=== PATIENT | male | born 1935 | race Caucasian/White ===

== ENCOUNTER → 2019-08-20 11:33 | Outpatient (BNVA) | payer MEDICARE, OTHER, SELFPAY | PROVIDERS: Family Provider Family Medicine; PCP Family Medicine; Visit Provider Urology | DX: C67.9 Malignant neoplasm of bladder, unspecified (principal); R33.8 Other retention of urine; N39.0 Urinary tract infection, site not specified; C67.1 Malignant neoplasm of dome of bladder; R35.1 Nocturia | CPT/HCPCS: 80053; 81001 ==

== ENCOUNTER → 2020-07-21 10:16 | Outpatient (BNVA) | payer MEDICARE, OTHER, SELFPAY | PROVIDERS: Family Provider Family Medicine; PCP Family Medicine; Visit Provider Urology | DX: C67.1 Malignant neoplasm of dome of bladder (principal); N39.0 Urinary tract infection, site not specified; R33.9 Retention of urine, unspecified; R35.1 Nocturia | CPT/HCPCS: 81003 ==

== ENCOUNTER 2020-07-29 13:47 | Outpatient (CLI) | payer MEDICARE, OTHER, SELFPAY ==
--- NOTE | 2020-07-29 13:52 | USCV_ITS ---
Ricardo Nelson Age: 85 Gender: M : 1935 Exam Date: 07/29/2020 14:01 Ordering Phys: Charli Piña MD Technologist: Casie Rosenbaum [place] [facility] [place]: CHF BP: 142 / 67 HR: 58 Rhythm: Sinus Technical Quality: Technically difficult study MEASUREMENTS (Male / Female) Normal Values 2D ECHO LV Diastolic Diameter PLAX 4.7 cm 4.2 - 5.9 / 3.9 - 5.3 cm LV Systolic Diameter PLAX 2.9 cm IVS Diastolic Thickness 1.7 cm 0.6 - 1.0 / 0.6 - 0.9 cm IVS Systolic Thickness 2.4 cm LVPW Diastolic Thickness 1.7 cm 0.6 - 1.0 / 0.6 - 0.9 cm LVPW Systolic Thickness 2.0 cm LVOT Diameter 2.0 cm LV Ejection Fraction 2D Teich 68.1 % LV Ejection Fraction MOD 2C 57.9 % LV Ejection Fraction 2C AL 64.1 % LA Diameter 3.8 cm LA Width 4.9 cm LA Height 6.8 cm RA Width 3.6 cm RA Height 5.9 cm Aorta at Sinotubular Diameter 2.9 cm DOPPLER AV Peak Velocity 528.0 cm/s LVOT Peak Velocity 120.0 cm/s AV Area Cont Eq vti 0.8 cm squared AV Area Cont Eq pk 0.7 cm squared MV Area PHT 4.2 cm squared Mitral E to A Ratio 0.8 MV E' Velocity 52.5 cm/s Mitral E to MV E' Ratio 21.2 Mitral E to LV E' Lateral Ratio 16.3 Mitral E to LV E' Septal Ratio 30.1 TR Peak Velocity 157.0 cm/s TR Peak Gradient 9.9 mmHg TV Peak E Velocity 71.0 cm/s Right Atrial Pressure 3.0 mmHg Pulmonary Artery Systolic Pressu 12.9 mmHg FINDINGS Left Ventricle Normal left ventricular size and systolic function, EF 66 %. Moderate left ventricular hypertrophy. Moderate hypokinesis of the basal inferior wall segment.Grade I/IV diastolic dysfunction (abnormal relaxation filling pattern), normal to mildly elevated filling pressures. Right Ventricle The right ventricle is normal in size and function. Right Atrium The right atrium is normal in size. Left Atrium Mildly increased left atrial size. Mitral Valve Thickened mitral valve. Trace mitral valve regurgitation. Aortic Valve Mild aortic valve regurgitation. Severe aortic valve stenosis, QUINTIN 0.77 cm squared. Peak velocity of 5.12 m/s with a peak gradient of 105 mmHg with a mean gradient of 56 mmHg Tricuspid Valve No gross abnormalities noted Pulmonic Valve Pulmonic valve not well visualized. Pericardium Normal pericardium without effusion. Aorta Normal ascending aorta dimension. CONCLUSIONS Normal left ventricular size and systolic function, EF 66 %. Moderate left ventricular hypertrophy. Wall motion normality as mentioned above Severe aortic valve stenosis, QUINTIN 0.77 cm squared. ( Peak velocity of 5.12 m/s with a peak gradient of 105 mmHg with a mean gradient of 56 mmHg. ) Type I diastolic dysfunction. Thickened mitral valve. Trace mitral valve regurgitation. Mildly increased left atrial size. There is no pericardial effusion. There are no intracardiac masses. No previous study is available for comparison. Compared to the study from 08/17/2018, the severe aortic valve stenosis appears to be new Dr Omari Marquis MD FAC (Electronically Signed) Final Date: 29 Jul 2020 17:54 S
== END 2020-07-29 13:48 | disposition home or self-care (01) ==
LOC: US 13:48
PROVIDERS: PCP Family Medicine; Visit Provider Family Medicine
DX: I50.9 Heart failure, unspecified (principal); I34.0 Nonrheumatic mitral (valve) insufficiency
CPT/HCPCS: 93306

== ENCOUNTER → 2020-09-08 08:48 | Outpatient (BNVA) | payer MEDICARE, OTHER, SELFPAY | PROVIDERS: PCP Family Medicine; Visit Provider Internal Medicine Cardiovascular Disease | DX: Z01.812 Encounter for preprocedural laboratory examination (principal); Z20.822 Contact with and (suspected) exposure to COVID-19 | CPT/HCPCS: 87635 ==

== ENCOUNTER 2020-09-10 10:50 | Outpatient (CLI) | payer MEDICARE, OTHER, SELFPAY ==
[2020-09-08 14:20] VITALS: BMI 30.4
--- NOTE | 2020-09-10 11:33 | ANES.PREANE2 ---
Pre-Anesthetic Assessment Pre-Anesthetic Assessment: Height/Weight: Height 1.73 m Weight 90.718 kg Proposed Procedure: Operation Date: 09/10/20 12:00 Proposed Procedures p WILFREDO(Not Applicable) - Omari Marquis MD Operation Date: 09/23/20 12:00 Proposed Procedures p WILFREDO(Not Applicable) - Omari Marquis MD Was Beta Ceasar taken within 24 hours: N/A Was Clonidine taken within 24 hours: N/A Social: Social History: No alcohol and No tobacco Exam: Pre-Anes Outpt Exam: alert, oriented x 3, clear to auscultation bilaterally and regular rate & rhythm Airway: Submandibular: WNL Cervical ROM: WNL MP: 2 Dentition: Full CV/HEM: CV/HEM: CHF, HTN and Murmur Comments: Severe , goiter excision (chest scar) Metabolic: Metabolic: Thyroid Anesthetic Plan: ASA status: 3 Anesthesia: MAC Risk of > 500 ml blood loss (7ml/kg in children): No PFSH Anesthesia PFSH: Medical History Bladder cancer Goiter Gouty arthritis History of bradycardia History of paroxysmal supraventricular tachycardia Hx of carpal tunnel syndrome Incomplete bladder emptying Mitral valve prolapse Recurrent UTI Surgical History History of total right hip arthroplasty S/P TURP (status post transurethral resection of prostate) Family History Father , at age 69 Suicide Mother , at age 89 CAD (coronary artery disease) Diabetes Sister Diabetes Lung disease Brother Diabetes Stroke Denies family history of Clotting disorder Dementia Chronic kidney disease (CKD) Anesthesia complication Bleeding disorder Cancer Social History Smoking and tobacco status: former smoker Alcohol intake: never Marital status: Current occupational status: retired History of recent travel: No Data Anesthesia Cardiac Studies: No Data to Display
[2020-09-10 11:52] VITALS: BP 175/67; PULSE 62; RESP 18; TEMP 36.8; O2SAT 96
[2020-09-10] MEDS: sodium chloride 0.9% 1,000 ML 30 ML IV (11:57)
--- NOTE | 2020-09-10 12:10 | USCV_ITS ---
Ricardo Nelson Age: 85 Gender: M : 1935 Exam Date: 09/10/2020 12:12 Ordering Phys: Omari Marquis MD ([email or web address]) Technologist: Audra Temple Exam Location: [facility] – [place] Indication: BP: 175 / 67 HR: 53 Rhythm: Sinus Technical Quality: MEASUREMENTS (Male / Female) Normal Values 2D ECHO LVOT Diameter 1.8 cm DOPPLER AV Peak Velocity 368.0 cm/s LVOT Peak Velocity 84.0 cm/s AV Area Cont Eq vti 0.7 cm squared AV Area Cont Eq pk 0.6 cm squared Medications Patient was given IV propofol by anesthesia service Complications None Proc. Components The WILFREDO probe was passed into the posterior pharynx , mid- esophagus, distal esophagus, and gastric fundus. The patient tolerated the procedure well and there were no complications. FINDINGS Left Ventricle Appears to be of normal size ejection fraction. Mild to moderate concentric left ventricular hypertrophy. Right Ventricle No intracavitary masses. Right Atrium The right atrium is normal in size. Left Atrium Appears to be mildly dilated LA Appendage Normal contractility with no evidence of any thrombus . IA Septum The interatrial septum appears to be intact with no evidence of any ASD or PFO, by color flow Doppler examination or by saline contrast injection Mitral Valve Minimal thickened mitral valve. Aortic Valve Moderate to heavy calcification in the aortic leaflets mostly at the margins. The valve appears to be tricuspid.mild aortic valve regurgitation. Echo Doppler signal across the aortic valve was not obtained by transesophageal echo, because of the difficult angle. The valve area was calculated to be 0.77 cm squared by transthoracic echo with a peak velocity of 5.12 m/s, peak gradient of 105 mmHg and a mean gradient of 56 mmHg Tricuspid Valve No significant stenotic or regurgitant lesions. Pulmonic Valve Appears to be minimally thickened . Pericardium Normal pericardium without effusion. Aorta Mild diffuse plaques in the arch and descending aorta CONCLUSIONS 1. Moderate to heavy diffuse calcification of the aortic valve margins. Valve appears to be tricuspid 2. Severe aortic valve stenosis with a valve area of . 77 cm squared and a mean gradient of 56 mmHg-based on transthoracic echo. 3. Normal LV size ejection fraction. Concentric left hypertrophy. 4. Mild aortic and mitral regurgitation. 5. Intact interatrial septum with no evidence of any atrial septal defect or patent foramen ovale. 6. No intracavitary masses 7. Normal left atrial appendage contractility No similar previous studies are available for comparison Dr Omari Marquis MD [facility] (Electronically Signed) Final Date: 11 September 2020 10:25 S
--- NOTE | 2020-09-10 12:20 | W.PM.OPSUD ---
Surgery/Procedure H&P Update DATE OF PROCEDURE: September 10, 2020 DATE H&P PERFORMED: 08/13/20 H&P UPDATE INFORMATION: I have reviewed H&P completed within last 30 days, I have examined patient prior to procedure and No changes to prior documentation PREOP DIAGNOSIS: , Severe PLANNED PROCEDURE: Operation Date: 09/10/20 12:00 Proposed Procedures p WILFREDO(Not Applicable) - Omari Marquis MD Operation Date: 09/23/20 12:00 Proposed Procedures p WILFREDO(Not Applicable) - Omari Marquis MD
[2020-09-10 12:45] VITALS: BP 110/43; PULSE 53; RESP 18; O2SAT 97
--- NOTE | 2020-09-10 13:36 | ANE.PACU2 ---
Inpatient post-anesthesia follow up: Airway intact: Yes Vital signs: Temperature 98.3 F Pulse Rate 53 Respiratory Rate 18 Blood Pressure 110/43 Pulse Oximetry 97 Oxygen Delivery Me thod Oxymask Oxygen Flow Rate Fraction of Inspir ed Oxygen Hydration adequate: Yes Nausea and vomiting: No Pain level: 1 Mental status: Baseline
== END 2020-09-10 13:35 | disposition home or self-care (01) ==
PROVIDERS: PCP Family Medicine; Visit Provider Internal Medicine Cardiovascular Disease
PROC: (CPT 93312; principal; 2020-09-10 12:00)
DX: I35.0 Nonrheumatic aortic (valve) stenosis (principal); E78.5 Hyperlipidemia, unspecified; E03.9 Hypothyroidism, unspecified; Z79.82 Long term (current) use of aspirin; Z87.891 Personal history of nicotine dependence; I11.0 Hypertensive heart disease with heart failure; I50.9 Heart failure, unspecified
CPT/HCPCS: 93312; 93318; 93320; 93325; 96360; J2704; J7030

== ENCOUNTER → 2020-11-03 10:30 | Outpatient (BNVA) | payer MEDICARE, OTHER, SELFPAY | PROVIDERS: PCP Family Medicine; Referring Provider Internal Medicine Cardiovascular Disease; Visit Provider Internal Medicine Cardiovascular Disease | DX: Z01.818 Encounter for other preprocedural examination (principal); Z20.822 Contact with and (suspected) exposure to COVID-19; I35.0 Nonrheumatic aortic (valve) stenosis | CPT/HCPCS: 80048; 85025; 85610; 86850; 86900; 87635 ==

== ENCOUNTER 2020-11-09 05:55 | Day surgery (SDC) | payer MEDICARE, OTHER, SELFPAY ==
[2020-11-09] VITALS (22 sets, daily range): BP systolic 121–182; BP diastolic 49–87; PULSE 48–66; RESP 14–29; TEMP 36.7–37.1; O2SAT 94–97; BMI 32.3
--- NOTE | 2020-11-09 06:14 | XACV_ITS ---
Exam Room: 1 Ht: 173 cm Wt: 97 kg BSA: 2.18 m2 Gender: Male : 1935 Any Known Allergies: No known allergies Exam Priority: Routine Indication(s): - Aortic valve disease - Shortness of breath Procedure(s): Procedure Description: Diagnostic procedure Procedure Description: Left Heart Catheterization Procedure Description: Right Heart Catheterization Procedure Description: O2 saturation Procedure Description: Coronary Angiography Diagnostic Cath Status: Elective Diagnostic Findings * Coronary angiography shows right dominance. * The left main is a medium to large caliber vessel with minimal intimal irregularities distally. No significant stenotic lesions. * The left anterior descending artery is a medium caliber vessel which appears to bifurcate around the LV apex. 20 to 30% diffuse irregular narrowing was noted in the proximal to mid segment of the artery. No significant stenotic lesions were seen. The first diagonal branch had around 50% osteal narrowing. The first septal supervisor ore dressing is a relatively large vessel with around 40% ostial narrowing. No other significant stenotic lesions were noted.. * The left circumflex artery is a medium caliber vessel which appears to trifurcate proximally. The trifurcation branches were found to have mild diffuse intimal irregularities with no significant extremity lesions. * The intermedius artery is a small caliber vessel with no significant stenotic lesions. * The right coronary artery is a medium to large caliber dominant vessel which was found to have mild to moderate diffuse irregular narrowing in the proximal segment. Right after the first RV branch, there was a 70 to 80% lesion. The artery was found to have moderate diffuse calcification in the proximal and mid segment. The distal bifurcation branches were found to have mild diffuse intimal irregularities. Conclusions 1. 85-year-old white male with history of hypertension, dyslipidemia, hypothyroidism and aortic valve stenosis, presenting with increasing shortness of breath with activities. He was found to have severe aortic valve stenosis with a valve area of 0.75 cm2. He underwent a left and right heart catheterization with left and right coronary angiogram today. The findings are as follows. 2. The peak to peak gradient across the aortic valve was 102 mmHg. The mean PA pressure was found to be 44 mmHg. Right atrial pressure was 18 mmHg. Cardiac output by Vince's was 4.0 with an index of 2.0. LVEDP of 24 mmHg. Coronary angiogram revealed high-grade lesion in the mid RCA with a diffuse calcification in the proximal to mid segment of the right coronary artery. Mild diffuse disease in the vessels on the left side. 3. Based on the above findings, it was thought to be appropriate to consider PCI of the RCA lesion and TAVR for the aortic valve stenosis. I discussed and reviewed the catheterization data with Dr. Colmenares. Because of the complexity of the RCA lesion, it was thought to be appropriate to do the PCI and the TAVR in [place]. I will be contacting Dr. Mcduffie at the [facility] in [place] to arrange for further management.. Recommendations * Continue current medical management and risk factor modification. LV EDP: 24 mmHg Left Ventriculography Findings: * The LV gram was not performed. LV catheterization was performed using the right coronary catheter. The peak to peak gradient across the aortic valve was 102 mmHg. Pressures Phase:Rest AO : / ( -2 ) @ 6:16:00 AM 233 / 114 ( 75 ) @ 6:37:00 AM 242 / 40 ( 99 ) @ 6:42:00 AM LV : 238 / 8 / 32 @ 6:42:00 AM RV : 74 / 5 / 19 @ 6:24:00 AM PA : 84 / 24 ( 44 ) @ 6:22:00 AM RA : a wave = 20 v wave = 19 mean = 18 @ 6:26:00 AM PCW : a wave = 30 v wave = 39 mean = 25 @ 6:21:00 AM Hemodynamic Findings The pulmonary capillary wedge pressure was 25. The PA pressure was 84/24 with a mean of 44 mmHg. The right ventricular pressure was 74/4. Right atrial pressure was 18 mmHg. The cardiac output by Vince's was 4 with an index of 2.0. The peak to peak gradient across the aortic valve was 102 mmHg. The pulmonary capillary wedge pressure was 25. O2 Content Phase:Rest PA : O2 Content O2: 69.3 @ 6:16:00 AM Saturations Phase:Rest AO : 97 @ 6:42:00 AM RA : 72 @ 6:37:00 AM RV : 71 @ 6:42:00 AM PA : 69 @ 6:16:00 AM Cardiac Output Phase:Rest Vince : 4 @ 8:17:01 AM Vince Cardiac Index: 2 @ 8:17:01 AM Flow Phase:Rest Qp : 4 @ 8:17:01 AM Qs : 5 @ 8:17:01 AM Clinical Evaluation EBL: 5mL-10mL Procedural Details Procedure Consent Obtained. Current Diagnosis : Chest Pain. Pre-Procedure Time Out. Identified patient by full name and date of as verbalized by the patient/guarantor. Does the consent match the physician's order: Yes. Accurate & Complete Informed Consent: Yes. Inpatient/Outpatient History & Physical on Chart: Yes. If H&P is completed, is and addenduem needed: No; If yes, is the addendum complete: N/A. Visualize and Verify Site with Patient/Guarantor: N/A. Relevant Radiology Images available: N/A. The risks, benefits, and alternatives of sedation and/or procedure were discussed by physician. The patient agrees to continue. Procedure started. [facility] Clinical Fraility Score: 3: Managing Well. Filleter Indications: Other; Aortic Valve Disease, Shortness of breath. Chest Pain Symptom Assessment: Typical Angina Symptoms. Cardiovascular Instability: No. Correct patient, site and procedure confirmed by cath team. Current diagnosis: Aortic Valve Disease, Shortness of breath. PERRLA. Strong, equal hand beam builder helper bilaterally. Lungs clear x 5 lobes. IV Site on Arrival: 20 gauge in the left wrist. IV Site on Arrival: 20 gauge in the right AC. IV Fluids: 0.9% NaCl at KVO. 0 mL infused prior to laboratory chief. Pre Procedural Pulses: bilateral radial was 3+. Pre Procedural Pulses: bilateral posterior tibial was 3+. Pre Procedural Pulses: bilateral dorsalis pedis was 3+. Patient not on oxygen at start of procedure d/t Right Heart Cath. right radial was prepped with chloroprep then draped in the usual sterile fashion. right brachial was prepped with chloroprep then draped in the usual sterile fashion. right groin was prepped with chloroprep then draped in the usual sterile fashion. Physician notified. Baseline sample Acquired. HR: 66 BPM. Equipment: 6F - Femoral. Equipment: 5F - Femoral. Cardiac Cath Pack. ACIST Manifold Kit Model BT 2000. Heparinized Saline (2 units/mL), 1000 mL bag. Physician arrived. Physician scrubbed in. Equipment: 5F - Radial. Equipment: 6F - Radial. Immediate Pre-Procedure Time Out. Correct Patient: Yes; Correct Procedure: Yes; Correct Site: Yes; Correct Patient Position: Yes; Correct Supplies: Yes; Dried Flammable Prep: Yes; Blood Products Available: N/A;. Lidocaine 1% infiltrated to the right brachial. Wire advanced through the right brachial IV access. [place] MON catheter inserted. [place] wire inserted. [place] advanced to PA. [place] wire out. Oxygen sats collected and sent to RT for anaylysis. [place] Flushed. Lidocaine 1% infiltrated to the right radial. Arterial access obtained. AO sample obtained. Oxygen started at 3liters/min via nasal canula. A [place] 5 Fr Rich Radial Catheter, 110cm was advanced over the wire and used for Left coronary angiography. LCS cannulated. Multiple views taken of left coronary artery. Catheter redirected to the RCA. Unable to cannulate the RCA. Catheter removed over the exchange wire. A CRD 5F JR4 Diagnostic Catheter was advanced over the wire and used for right coronary angiography. EDP Sample taken: LV 238/8,32; HR: 63 BPM; SpO2: 98%. Pullback taken: LV Off; AO Off; Mean: , Peak to Peak: , SEP: ; HR: 63 BPM; SpO2: 98%. [place] out. RCA cannulated. Multiple views taken of right coronary artery. Catheter removed over the exchange wire. Physician review of films. Dr Colmenares notified of possible need of intervention. Side port of sheath attached to Normal Saline flush at KVO to maintain patency. A Manual Compression was successful obtaining hemostatsis at the Right Brachial Vein insertion site. A TR Band was successful obtaining hemostatsis at the Right Radial artery insertion site. TR band placed. Hemostasis obtained. Sheath(s) removed and manual pressure held until hemostasis was achieved. Sterile 4x4 and Op-site applied to the puncture site. No oozing or hematoma noted. Post sheath removal instructions were given and the patient verbalized understanding. Post Procedure: Pulses reassessed and unchanged. PERRLA. Strong, equal hand beam builder helper bilaterally. No VTE prophylaxis required. Medication's Wasted: Lidocaine 1% = 18 mL. Medication's Wasted: Nitro = 49.8 mg. Medication's Wasted: Heparin = 1000 units. Medication's Wasted: Versed = 1 mg. Medication's Wasted: Fentanyl = 100 mcg. Total IV fluids: 73 mL. Fluoro: 12:03. Contrast type used: Omnipaque 300 mgI/mL, 500 mL bottle. Omnipaque 141 ml. Post-op diagnosis: Severe Aortic Stenosis, Pulmonary Hypertension and RCA disease. Complications: None. Estimated blood loss: 5mL-10mL. Procedure completed. Vital chart was stopped. Patient transferred by bed to CPRU. Access Site Site: Right Brachial Vein Sheath Size: 6 Fr Hemostasis Method: Manual Compression Hemostasis Success: Successful Site: Right Radial artery Sheath Size: 6 Fr Hemostasis Method: TR Band Hemostasis Success: Successful Procedure Medications Start: 7:12 AM Stop: 7:12 AM Medication: Versed Amount: 1 mg Route: I.V. Start: 7:31 AM Stop: 7:31 AM Medication: Verapamil Amount: 5 mg Route: I.A. Start: 7:32 AM Stop: 7:32 AM Medication: Nitrogylcerin Amount: 200 mcg Route: I.A. Start: 7:34 AM Stop: 7:34 AM Medication: Heparin Amount: 5000 units Route: I.V. I, the attending physician, have reviewed and verified all procedure medications. Yes, all medications given per verbal order History/Risk Factors Hypertension: Yes Dyslipidemia: Yes Peripheral Arterial Disease (PAD): No Obesity: No Renal Disease: No Tobacco Use: Former Prior Interventions PCI: No CABG: No Valve Surgery: No Report Signatures Finalized by Dr Omari Marquis MD [facility] on 11/09/2020 01:28 PM
[2020-11-09] MEDS: diphenhydrAMINE 50 mg Capsule PO (06:28)
--- NOTE | 2020-11-09 06:42 | P.HP_ITS ---
Providers/Chief Complaint Primary Care Provider: Charli Piña MD Chief Complaint: left heart cath History of Present Illness Ricardo Nelson is a 85 year old male is diagnosed to the severe aortic valve stenosis. He also is known to have benign essential hypertension, dyslipidemia and hypothyroidism. His valve area was calculated to be 0.75 cm?. He is mainly presenting with dyspnea on exertion. His functional status is slowly deteriorating. A cardiac catheterization was recommended mainly to evaluate the hemodynamics and the coronary artery status before the valve intervention. He denies any orthopnea or PND. No fever, chills or cough. No other specific complaints at this time. Patient has a questionable history of rheumatic fever as a child. Denies any chest pain or chest tightness. No significant palpitation, dizziness or syncopal episodes. Review of Systems Narrative: CONSTITUTIONAL: No fever or chills. EYES: No blurring of vision or other visual disturbances lately. ENT: No hoarseness of voice, auditory disturbances or sore throat. CARDIOVASCULAR: As mentioned above. RESPIRATORY: Shortness of breath as mentioned above GASTROINTESTINAL: No hematemesis or melena. GENITOURINARY: No dysuria or hematuria. INTEGUMENTARY: No skin rashes or history of skin cancer. NEURO: No transient ischemic attacks or amaurosis. PSYCHIATRIC: No history of psychosis or major depression. HEMATOLOGIC: No bleeding disorders or significant anemia. ENDOCRINE: No history of polyuria or polydipsia. MUSCULOSKELETAL: No recent joint pain or swelling. ALLERGY/IMMUNOLOGY: As mentioned above. Medications/Allergies Home Medications Medication Instructions Recorded Confirmed Last Taken Type ascorbic acid (vitamin C) 500 mg 500 mg PO BID cap 08/20/19 11/09/20 11/08/20 09:00 History capsule aspirin 81 mg tablet,delayed 81 mg PO DAILY 08/20/19 11/09/20 11/09/20 05:00 History release atorvastatin 40 mg tablet 40 mg PO DAILY 08/20/19 11/09/20 11/08/20 21:00 History levothyroxine 25 mcg tablet 25 mcg PO DAILY 08/20/19 11/09/20 11/09/20 05:00 History lisinopril 40 mg tablet See Rx Instructions .ROUTE 05/11/20 11/09/20 11/09/20 05:00 Rx .COMPLEX #14 tab acetaminophen 325 mg tablet 500 mg PO QID PRN 07/21/20 11/09/20 09/10/20 History methenamine hippurate 1 gram tablet 1 g PO BID #180 tab 09/03/20 11/09/20 11/08/20 09:00 Rx carvedilol 12.5 mg tablet 12.5 mg PO BID #60 tab 09/21/20 11/09/20 11/09/20 05:00 Rx amlodipine 5 mg tablet 5 mg PO DAILY #30 tab 11/02/20 11/09/20 11/08/20 09:00 Rx Allergies Allergy/AdvReac Type Severity Reaction Status Date / Time No Known Allergies Allergy Verified 11/09/20 06:39 PFSH PFSH: Medical History Bladder cancer Goiter Gouty arthritis History of bradycardia History of paroxysmal supraventricular tachycardia Hx of carpal tunnel syndrome Incomplete bladder emptying Mitral valve prolapse Recurrent UTI Surgical History History of total right hip arthroplasty S/P TURP (status post transurethral resection of prostate) Family History Father , at age 69 Suicide Mother , at age 89 CAD (coronary artery disease) Diabetes Sister Diabetes Lung disease Brother Diabetes Stroke Denies family history of Clotting disorder Dementia Chronic kidney disease (CKD) Anesthesia complication Bleeding disorder Cancer Social History Smoking and tobacco status: former smoker Alcohol intake: never Marital status: Current occupational status: retired History of recent travel: No Vital Signs Vitals Signs: Last Vital Signs Temp 98.0 F 11/09/20 06:28 Pulse 63 11/09/20 06:28 Resp 18 11/09/20 06:28 BP 175/79 11/09/20 06:28 Pulse Ox 94 11/09/20 06:28 Weight: Weight last 48 hrs Weight 213 lb Physical Exam Narrative: EXAM NARRATIVE: GENERAL: The patient is alert and oriented times three. Not in any acute distress. HEENT: No significant pallor, icterus or lymphadenopathy.Oral cavity: There are no mucous membrane lesions. NECK: Trachea appears to be central. No masses noted. No JVD or thyromegaly appreciated. RESPIRATORY: Chest is symmetrical. No intercostals muscle retraction or any accessory muscle activation. There is no chest wall tenderness. Breath sounds are heard bilaterally. No rales or rhonchi heard. No evidence of any cons olidation. BREASTS: Deferred. HEART: The heart sounds are normal. No S3 or S4. Ejection Stolle murmur of grade 4/6 in the aortic area. No diastolic murmurs. No pericardial rub ABDOMEN: No vessel pulsations or distention. No tenderness. No organomegaly appreciated. Bowel sounds are normally heard. : Deferred. RECTAL: Deferred. LYMPHATIC: No lymphadenopathy noted in the neck or groin. EXTREMITIES: No edema or cyanosis. No clubbing. Peripheral pulses are palpated in fairly good volume and amplitude MUSCULOSKELETAL: No acute joint deformities or swelling SKIN: There are no significant rashes or ecchymosis NEUROPSYCHIATRIC: The patient is alert and oriented x3. Appears to be in a good mood. No tremors or rigidity noted. Data Imaging^: Echo: My impression: Normal left ventricular size and systolic function, EF 66 %. Moderate left ventricular hypertrophy. Wall motion normality as mentioned above Severe aortic valve stenosis, QUINTIN 0.77 cm squared. ( Peak velocity of 5.12 m/s with a peak gradient of 105 mmHg with a mean gradient of 56 mmHg. ) Type I diastolic dysfunction. Thickened mitral valve. Trace mitral valve regurgitation. Mildly increased left atrial size. There is no pericardial effusion. There are no intracardiac masses. No previous study is available for comparison. Compared to the study from 08/17/2018, the severe aortic valve stenosis appears to be new A&P Assessment and plan (1) Severe aortic valve stenosis: Patient has severe aortic valve calculated to be 0.75 cm2. In view of his multiple risk factors, in order to further evaluate his coronary status, a cardiac catheterization was recommended. We also may go ahead and do a right heart catheterization prior to his valve surgery. After reviewing the results, further recommendations will be made. Status: Acute (2) Benign essential HTN: Currently the blood pressure is a stage II. We will try to optimize his antihypertensive medications. Status: Acute (3) Dyslipidemia: Continue on the current management. Follow-up evaluation as scheduled. Status: Acute (4) Hypothyroid: Continue on the current management. Follow-up evaluation as scheduled. Status: Acute Qualifiers: Hypothyroidism type: acquired Qualified Code(s): E03.9 - Hypothyroidism, unspecified Additional A&P Information Based on the results of the above test, further recommendations will be made. 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
--- NOTE | 2020-11-09 07:00 | W.PM.OPSUD ---
Surgery/Procedure H&P Update DATE OF PROCEDURE: November 09, 2020 DATE H&P PERFORMED: 11/09/20 H&P UPDATE INFORMATION: I have reviewed H&P completed within last 30 days and I have examined patient prior to procedure PREOP DIAGNOSIS: , Severe PRIMARY INDICATION FOR PROCEDURE: /SOB PLANNED PROCEDURE: Operation Date: 11/09/20 07:00 Proposed Procedures p Cardiac Catheterization 40129 I35.0(Left) - Omari Marquis MD PATIENT REASSESSED PRIOR TO SEDATION, WITH NO CHANGE NOTED: Yes PHYSICAL EXAM: alert, oriented x 3, clear to auscultation bilaterally and regular rate & rhythm AIRWAY EVAL/ANESTHESIA PLAN: normal airway, see other exam findings, ASA III, Monitored Anesthesia, Local Anesthesia, Risks, benefits & alternatives of sedation and/or procedure discussed and Patient agrees to continue as planned
[2020-11-09 07:33] LABS: Arterial Blood Gas Hematocrit 41.2 % (42-52); Blood Gas Operator Identificat AMH; Blood Gas Sample Site Not specified; Blood Gas Sample Type Venous; Carboxyhemoglobin 1.2 %THgb (0.4-20.1); Methemoglobin 0.7 % (0.4-1.5); Total Hemoglobin 13.4 g/dL (14-18)
[2020-11-09 07:46] LABS: Arterial Blood Gas Hematocrit 36.9 % (42-52); Arterial Blood Gas Hematocrit 39.9 % (42-52); Blood Gas Operator Identificat AMH; Blood Gas Sample Site Not specified; Blood Gas Sample Type Venous; Carboxyhemoglobin 1.2 %THgb (0.4-20.1); HGB O2 Sat 69.9 % (95-100); HGB O2 Sat 70.5 % (95-100); Methemoglobin 0.7 % (0.4-1.5)
[2020-11-09 07:47] LABS: Alveolar-Arterial Oxygen Gradi 4.1 mmHg (5-10); Arterial Blood Gas Hematocrit 40.1 % (42-52); Blood Gas Operator Identificat AMH; Blood Gas Sample Site Not specified; Blood Gas Sample Type Arterial; Methemoglobin 0.6 % (0.4-1.5); Total Hemoglobin 13.1 g/dL (14-18)
--- NOTE | 2020-11-09 08:34 | PC.NURSE ---
Fluid Status Telephone taken from Dr. Marquis for post cath fluids NS at 100ml/hr until discharge.
--- NOTE | 2020-11-09 09:19 | PC.NURSE ---
2ml air removed from right radial TR band. Site bruised, no signs of hematoma or bleeding. radial pulse palpable. Will continue to monitor.
--- NOTE | 2020-11-09 09:45 | PC.NURSE ---
2ml air removed from right TR band. no bleeding or hematoma noted.
--- NOTE | 2020-11-09 10:00 | PC.NURSE ---
2 ml air removed from TR band, site started bleeding. placed 4ml of air back into TR band until bleeding stopped. No hematoma noted. Will continue to assess and monitor.
--- NOTE | 2020-11-09 10:30 | PC.NURSE ---
2ml air removed from right radial TR band. Bruise noted, no signs of bleeding or hematoma. Right radial pulse palpable. Will continue to monitor.
--- NOTE | 2020-11-09 10:45 | PC.NURSE ---
3ml air removed from right radial TR band. Site bruised. No hematoma or bleeding present at this time. Will continue to monitor.
--- NOTE | 2020-11-09 11:00 | PC.NURSE ---
3ml air removed from right radial TR band. No bleeding or hematoma observed. Radial pulse palpable. Will continue monitor.
--- NOTE | 2020-11-09 11:19 | PC.NURSE ---
3ml air removed from TR band. Site bruised. No bleeding or hematoma observed.
--- NOTE | 2020-11-09 11:45 | PC.NURSE ---
3ml air removed from TR band. Will continue to monitor.
--- NOTE | 2020-11-09 12:00 | PC.NURSE ---
3ml removed from TR band. TR band now deflated. No bleeding or hematoma noted. Radial pulse palpable. Bruising noted at puncture site. Will continue to monitor.
--- NOTE | 2020-11-09 13:30 | PC.NURSE ---
Ambulated patient in hallway with walker and provided teaching verbal and demonstration with use of walker post TR band removal. Pt demonstrated proper technique. No signs of bleeding. Dressing remains clean dry and intact.
== END 2020-11-09 14:21 | disposition home or self-care (01) ==
PROVIDERS: PCP Family Medicine; Visit Provider Internal Medicine Cardiovascular Disease
DX: I35.0 Nonrheumatic aortic (valve) stenosis (principal); I10 Essential (primary) hypertension; E78.5 Hyperlipidemia, unspecified; E03.9 Hypothyroidism, unspecified; Z79.82 Long term (current) use of aspirin; Z85.51 Personal history of malignant neoplasm of bladder; Z82.49 Family history of ischemic heart disease and other diseases of the circulatory system; Z83.3 Family history of diabetes mellitus; Z82.3 Family history of stroke; Z87.891 Personal history of nicotine dependence
CPT/HCPCS: 36415; 82810; 93460; C1751; C1769; C1887; C1894; J1644; J2250; J3010; J3490; J7030; Q0163; Q9967

== ENCOUNTER → 2020-11-18 10:00 | Outpatient (BNVA) | payer MEDICARE, OTHER, SELFPAY | PROVIDERS: PCP Family Medicine; Visit Provider Nurse Practitioner Family | DX: I25.10 Atherosclerotic heart disease of native coronary artery without angina pectoris (principal) | CPT/HCPCS: 80048 ==

== ENCOUNTER → 2021-07-22 10:34 | Outpatient (BNVA) | payer MEDICARE, OTHER, SELFPAY | PROVIDERS: PCP Family Medicine; Visit Provider Urology | DX: C67.1 Malignant neoplasm of dome of bladder (principal); N39.0 Urinary tract infection, site not specified | CPT/HCPCS: 81003 ==

== ENCOUNTER → 2022-01-19 09:39 | Outpatient (BNVA) | payer MEDICARE, OTHER, SELFPAY | PROVIDERS: PCP Family Medicine; Visit Provider Family Medicine | DX: E03.9 Hypothyroidism, unspecified (principal); I10 Essential (primary) hypertension; E78.5 Hyperlipidemia, unspecified; I25.10 Atherosclerotic heart disease of native coronary artery without angina pectoris | CPT/HCPCS: 80053; 80061; 84443; 85025 ==

== ENCOUNTER → 2022-03-29 12:58 | Outpatient (BNVA) | payer MEDICARE, OTHER, SELFPAY | PROVIDERS: PCP Family Medicine; Referring Provider Family Medicine; Visit Provider Specialist | DX: G56.03 Carpal tunnel syndrome, bilateral upper limbs (principal) | CPT/HCPCS: 95910; 95913 ==

== ENCOUNTER → 2022-07-12 13:14 | Outpatient (BNVA) | payer MEDICARE, OTHER, SELFPAY | PROVIDERS: PCP Family Medicine; Visit Provider Internal Medicine Cardiovascular Disease | DX: I25.10 Atherosclerotic heart disease of native coronary artery without angina pectoris (principal); Z95.2 Presence of prosthetic heart valve; E78.5 Hyperlipidemia, unspecified; Z87.891 Personal history of nicotine dependence; I10 Essential (primary) hypertension; Z79.82 Long term (current) use of aspirin | CPT/HCPCS: 99213 ==

== ENCOUNTER 2022-07-25 06:00 | Outpatient (CLI) | payer MEDICARE, OTHER, SELFPAY | END 2022-07-25 06:01 | disposition home or self-care (01) | LOC: SPT 08-12 13:20 | PROVIDERS: PCP Family Medicine; Visit Provider Student in an Organized Health Care Education/Training Program | DX: Z46.89 Encounter for fitting and adjustment of other specified devices (principal); G56.01 Carpal tunnel syndrome, right upper limb | CPT/HCPCS: 97760; L3908 ==

== ENCOUNTER → 2022-08-01 13:42 | Outpatient (BNVA) | payer MEDICARE, OTHER, SELFPAY | PROVIDERS: PCP Family Medicine; Visit Provider Student in an Organized Health Care Education/Training Program | DX: G56.01 Carpal tunnel syndrome, right upper limb (principal); R20.0 Anesthesia of skin; R20.2 Paresthesia of skin | CPT/HCPCS: 73110; 99203 ==

== ENCOUNTER → 2022-09-12 13:01 | Outpatient (BNVA) | payer MEDICARE, OTHER, SELFPAY | PROVIDERS: PCP Family Medicine; Visit Provider Student in an Organized Health Care Education/Training Program | DX: G56.01 Carpal tunnel syndrome, right upper limb (principal) | CPT/HCPCS: 99214 ==

== ENCOUNTER 2022-09-28 06:13 | Day surgery (SDC) | payer MEDICARE, OTHER, SELFPAY ==
[2022-09-26 08:00] VITALS: BMI 32.6
[2022-09-28] VITALS (7 sets, daily range): BP systolic 117–157; BP diastolic 44–72; PULSE 65–83; RESP 12–18; TEMP 36.4–36.8; O2SAT 94–97
[2022-09-28] MEDS: sodium chloride 0.9% 1,000 ML 30 ML IV (06:45)
[2022-09-28] MEDS: acetaminophen 1,000 MG/100 ML PIGGYBACK 400 MG IV (06:45)
[2022-09-28] MEDS: ketorolac 30 mg/mL INJ IVP (06:46)
--- NOTE | 2022-09-28 06:52 | ECG_ITS ---
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 Measurements Intervals Wilkinson Rate: 55 P: 120 WI: 185 QRS: 149 QRSD: 103 T: 108 QT: 426 QTc: 409 Interpretive Statements SINUS BRADYCARDIA ARM LEADS REVERSED [INVERTED P AND QRS IN I] Compared to ECG 04/01/2016 11:49:46 Sinus arrhythmia no longer present Short WI interval no longer present T-wave abnormality no longer present Electronically Signed On 09-28-2022 9:52:15 CDT by Luh Charles M.D. [id number]
[2022-09-28 07:27] LABS: Alanine Aminotransferase 17 U/L (0-41); Albumin Level 4.1 g/dL (3.5-5.2); Alkaline Phosphatase 81 U/L (40-130); Anion Gap 15.6 (5-19); Aspartate Amino Transferase 16 U/L (0-40); Blood Urea Nitrogen 24 mg/dL (8-23); Calcium 8.7 mg/dL (8.5-10.5); Carbon Dioxide 21 mmol/L (22-29); Chloride 110 mmol/L (98-107); Globulin 2.6 g/dL (1.3-4.6); Glucose 101 mg/dL (65-115); Osmolality Calculated 298 mOsm/kg (285-295); Potassium 4.6 mmol/L (3.5-5.1); Sodium 142 mmol/L (136-145); Total Bilirubin 0.4 mg/dL (0.15-1.2); Total Protein 6.7 g/dL (6.6-8.7)
--- NOTE | 2022-09-28 07:47 | W.PM.OPSUD ---
Surgery/Procedure H&P Update DATE OF PROCEDURE: September 28, 2022 DATE H&P PERFORMED: 09/12/22 CHANGES TO PREVIOUS DOCUMENTATION: None. No changes from HPI from most recent office visit. Patient understands risk benefits complication alternatives with surgery and elects proceed with surgical intervention of the right carpal tunnel release. All questions answered. PREOP DIAGNOSIS: Right carpal Tunnel syndrome PRIMARY INDICATION FOR PROCEDURE: Right carpal tunnel syndrome PLANNED PROCEDURE: Operation Date: 09/28/22 08:00 Proposed Procedures p RIGHT CARPAL TUNNEL RELEASE [id number],G56.01(Right) - Oswald Lozano DO
[2022-09-28] MEDS: ceFAZolin 2,000 MG in sodium chloride 0.9% (plus) 50 ML 100 MG IV (07:58)
[2022-09-28] MEDS: lidocaine-epi 1% 20 mL INJ 5 ML INJECTION (08:10)
--- NOTE | 2022-09-28 08:38 | PM.OP2 ---
Brief Operative Note Date of procedure: 09/28/22 Pre-op diagnosis: Right carpal tunnel syndrome Post-op diagnosis: same Procedure Done: Right carpal tunnel release Surgeon: Oswald Lozano Estimated blood loss (mL): 1 Complications: None Post-op Plan: Patient taken to PACU in stable condition patient will receive appropriate discharge instructions as well as pain medication postoperatively. Patient to follow-up in the orthopedic office in 2 weeks Condition: stable Disposition: same day Coding Level of Care Code Acute Code for Yung Garnica
--- NOTE | 2022-09-28 08:42 | PC.NURSE ---
Pt arrived to PACU, resting comfortably, pt denies any pain or nausea at this time. Dressing to right wrist C/D/I, right fingers p/w/d, cap refill < 3 seconds, able to wiggle fingers. RUE elevated on pillow.
--- NOTE | 2022-09-28 08:45 | PM.PACU ---
PACU note Narrative: Patient taken to PACU in stable condition recovering well. Pain controlled. Patient has bandage on in place clean dry and intact. Able to wiggle fingers. Does have decreased sensation secondary to local anesthesia. Able to wiggle fingers brisk capillary refill less than 2 seconds. Exam: awake Disposition: discharged
--- NOTE | 2022-09-28 08:46 | PM.OP ---
Operative Report Date of procedure: September 28, 2022 Pre-op diagnosis: Preop Diagnosis Right carpal Tunnel syndrome Procedure: Post-op diagnosis: Same Procedure done: 1. Right carpal tunnel release Surgeon: Oswald Lozano DO Anesthesia: MAC (Local) Estimated blood loss: [1]mL Tourniquet time [8]minutes IV fluids: See anesthesia record Complications: None Findings: See operative report narrative Condition: stable Disposition: same day Brief History: Patient is a pleasant [87]year-old [male]?with right carpal tunnel syndrome.? Patient has been worked up in the outpatient setting findings and physical examination consistent with this.? Patient nerve?conduction studies consistent with carpal tunnel syndrome.? Patient's failed conservative treatment. We detailed?out?patient's risk benefits complication alternatives with surgical and?nonsurgical treatment options. Through shared decision making, patient?agrees to proceed with surgical intervention of the right carpal tunnel release .? Patient understands and agrees with current plan.? All questions answered.? Patient elects to proceed with surgical intervention with carpal tunnel release. Procedure: Patient seen and evaluated in the preoperative holding area.? Consent was reviewed and signed with patient.? Correct extremity was marked.? Patient was seen evaluated by the anesthesia department once cleared for surgery was brought back to the operative suite.? Patient patient placed in supine position all bony prominences were well-padded patient properly secured to the bed.? Right upper extremity was then placed onto an armboard.? A nonsterile tourniquet was applied to the right upper arm.? Patient underwent anesthesia per the anesthesia department.? Patient's right upper extremity was then prepped and draped in standard orthopedic fashion.? Final timeout performed.? Patient received appropriate preoperative antibiotics. Under sterile aseptic technique patient received local anesthesia over the preplanned carpal tunnel incision site. Esmarch was used to exsanguinate the right upper extremity and tourniquet was insufflated to 250 mmHg. A standard mini open right carpal tunnel incision was made.? Starting distally at Carpenter's cardinal line in line with the fourth ray extending proximally distal to the wrist crease centered over the carpal tunnel.? Sharp scalpel incision was made through skin and subcutaneous tissue.? Self-retaining retractor was placed and the palmar fascia was identified.? This was then split longitudinally and direct visualization of the transverse carpal ligament was then made.? I then utilizing scalpel feathered through the transverse carpal ligament until I entered the floor of the transverse carpal tunnel ligament into the carpal tunnel.? Next I switched to dissection scissors and completed my release of the transverse carpal ligament distally with care to protect the recurrent motor branch.? I completely released into the palmar fat and until no entrapment was noted distally.? Care was made to protect the superficial palmar arch during my distal dissection.? Next I then placed a [place] underneath the transverse carpal tunnel ligament to protect the contents of the carpal tunnel and subsequently utilizing dissection scissors under loupe magnification completely released the transverse carpal ligament proximally into the median antebrachial fascia.? Care was made to protect the palmar cutaneous branch by keeping my scissors curved ulnarly.? Once completely released, I then placed my [place] and had appropriate decompression of the carpal tunnel proximally as well as distally.? I then inspected the contents of the carpal tunnel which showed an hourglass shape of the median nerve showing its compression.? No masses were noted.? Tendons appeared healthy.? Wound was then thoroughly irrigated.? Tourniquet deflated.? Hemostasis satisfactory with bipolar electrocautery.? I then closed the incision with interrupted nylon stitches.? Xeroform 4 x 4's and a bulky soft dressing was applied to the right upper extremity.? Patient was then awakened from anesthesia and taken to PACU in stable condition.? Patient tolerated procedure without complications. Disposition: Patient taken to PACU in stable condition recovering well.? Dressing clean dry and intact.? Patient will receive appropriate discharge instructions as well as pain medication postoperatively.? Patient to follow-up with me in the office in 2 weeks.? They understand they may be weightbearing as tolerated to the right hand.? Patient should keep incision clean dry and intact.? Patient understands if any questions or concerns may contact the office.
--- NOTE | 2022-09-28 09:16 | P.ANESASSM_ITS ---
Pre-Anesthetic Assessment Height/Weight: Height 1.73 m Weight 97.522 kg Temp Pulse Resp BP Pulse Ox O2 Del Method 97.6 F 68 16 153/56 96 Room Air 09/28/22 08:57 09/28/22 09:02 09/28/22 09:02 09/28/22 09:02 09/28/22 09:02 09/28/22 09:02 Preop Diagnosis: Right carpal Tunnel syndrome Operation Date: 09/28/22 08:00 Proposed Procedures p RIGHT CARPAL TUNNEL RELEASE [id number],G56.01(Right) - Oswald Lozano DO Familial anesthetic complications: none Was Beta Ceasar taken within 24 hours: N/A Was Clonidine taken within 24 hours: N/A Last intake: Intake Last Liquid Date 09/27/22 Last Liquid Time 19:00 Last Solid Date 09/27/22 Last Solid Time 19:00 Social No alcohol and No tobacco Exam alert, oriented x 3, clear to auscultation bilaterally and regular rate & rhythm Airway Submandibular: within normal limits Cervical ROM: within normal limits Mallampati: Class II Dentition: full CV/HEM Coronary Artery Disease and Hypertension s/p TAVR Metabolic Hyperlipidemia, Morbid Obesity and Thyroid Disease Anesthetic Plan ASA status: 3 Anesthesia: MAC Medications/Allergies Home Medications Medication Instructions Recorded Confirmed Last Taken Type ascorbic acid (vitamin C) 500 mg 500 mg PO BID 08/20/19 09/26/22 09/27/22 History capsule aspirin 81 mg tablet,delayed 81 mg PO DAILY 08/20/19 09/26/22 09/25/22 History release acetaminophen 325 mg tablet 500 mg PO QID PRN Pain 07/21/20 09/28/22 09/27/22 History (Tylenol) nitroglycerin 0.4 mg sublingual 0.4 mg sublingual Q5M PRN chest 01/28/21 09/26/22 Unknown History tablet pain levothyroxine 25 mcg tablet See Rx Instructions .Route 04/04/22 09/26/22 0 09/27/22 Rx .COMPLEX #90 tabs atorvastatin 40 mg tablet See Rx Instructions .Route 06/29/22 09/26/22 09/26/22 Rx .COMPLEX #90 tabs amlodipine 10 mg tablet 10 mg PO DAILY #60 tabs 07/12/22 09/26/22 09/27/22 Rx lisinopril 40 mg tablet See Rx Instructions .Route 07/12/22 09/26/22 09/27/22 Rx .COMPLEX #90 tabs Cock Up Splint #1 ea 08/01/22 09/12/22 Unknown Rx methenamine hippurate 1 gram tablet See Rx Instructions .Route 08/02/22 09/26/22 09/27/22 Rx .COMPLEX #180 tabs ondansetron 4 mg disintegrating 4 mg PO Q8H 3 days #9 tabs 09/28/22 Unknown Rx tablet tramadol 50 mg tablet 50 mg PO Q8H PRN pain postop 5 09/28/22 Unknown Rx days #15 tabs Allergies Allergy/AdvReac Type Severity Reaction Status Date / Time No Known Allergies Allergy Verified 09/28/22 06:34 Current Medications Generic Name Dose Route Start Last Admin Trade Name Freq PRN Reason Stop Dose Admin Sodium Chloride 1,000 mls @ 30 mls/hr 09/28/22 06:30 09/28/22 06:45 Sodium Chloride 0.9% IV 09/29/22 06:29 30 mls/hr .Q24H ELIZA Administration PFSH Anesthesia Medical History Atherosclerosis of coronary artery Bladder cancer Goiter Gouty arthritis History of bradycardia History of paroxysmal supraventricular tachycardia Hx of carpal tunnel syndrome Incomplete bladder emptying Mitral valve prolapse Recurrent UTI Surgical History History of total right hip arthroplasty S/P TURP (status post transurethral resection of prostate) Family History Father , at age 69 Suicide Mother , at age 89 CAD (coronary artery disease) Diabetes Sister Diabetes Lung disease Brother Diabetes Stroke Denies family history of Clotting disorder Dementia Chronic kidney disease (CKD) Anesthesia complication Bleeding disorder Cancer Social History Smoking and tobacco status: former smoker Alcohol intake: never Marital status: Current occupational status: retired Data Anesthesia 09/28/22 06:40 BMP 09/28/22 06:40 Sodium 142 Potassium 4.6 Chloride 110 H Carbon Dioxide 21 L BUN 24 H Creatinine 1.3 H Glucose 101 Calcium 8.7 Liver Function 09/28/22 Range/Units 06:40 Total Bilirubin 0.4 (0.15-1.2) mg/dL AST 16 (0-40) U/L ALT 17 (0-41) U/L Alkaline Phosphatase 81 (40-130) U/L Albumin 4.1 (3.5-5.2) g/dL Cardiac Studies: Echocardiogram Ultrasound 07/29/20 Transesophageal Echocardiogram 09/10/20
--- NOTE | 2022-09-28 16:35 | ANE.PACU2 ---
Inpatient post-anesthesia follow up: Airway intact: Yes Vital signs: Temperature 97.6 F Pulse Rate 78 Respiratory Rate 16 Blood Pressure 157/64 Pulse Oximetry 97 Oxygen Delivery Me thod Room Air Oxygen Flow Rate Fraction of Inspir ed Oxygen Hydration adequate: Yes Nausea and vomiting: No Pain level: 2 Mental status: Baseline
== END 2022-09-28 09:59 | disposition home or self-care (01) ==
PROVIDERS: PCP Family Medicine; Visit Provider Student in an Organized Health Care Education/Training Program
PROC: (CPT 64721; principal; 2022-09-28 07:50)
DX: G56.01 Carpal tunnel syndrome, right upper limb (principal); R00.1 Bradycardia, unspecified; I25.10 Atherosclerotic heart disease of native coronary artery without angina pectoris; I10 Essential (primary) hypertension; E78.5 Hyperlipidemia, unspecified; E03.9 Hypothyroidism, unspecified; Z87.891 Personal history of nicotine dependence
CPT/HCPCS: 64721; 36415; 80053; 93005; J0131; J0690; J1885; J2704; J2795; J3010; J7030

== ENCOUNTER → 2022-10-13 09:34 | Outpatient (BNVA) | payer MEDICARE, OTHER, SELFPAY | PROVIDERS: PCP Family Medicine; Visit Provider Student in an Organized Health Care Education/Training Program | DX: G56.01 Carpal tunnel syndrome, right upper limb (principal) | CPT/HCPCS: 99024 ==

== ENCOUNTER 2023-10-05 22:26 | Inpatient (IN) | payer MEDICARE, OTHER, SELFPAY ==
[2023-10-05 22:27] VITALS: BP 119/57; PULSE 106; RESP 18; TEMP 36.9; O2SAT 93; BMI 31.9
--- NOTE | 2023-10-05 22:33 | XRR_ITS ---
PROCEDURE INFORMATION: Exam: XR Chest Exam date and time: 10/05/2023 10:39 PM Age: 88 years old Clinical indication: Other: Weak; Additional info: Weakness TECHNIQUE: Imaging protocol: Radiologic exam of the chest. Views: 1 view. COMPARISON: No relevant prior studies available. FINDINGS: Lungs: Bibasilar atelectasis versus minimal infiltrate. Pleural spaces: Unremarkable. No pleural effusion. No pneumothorax. Heart/Mediastinum: Cardiomegaly, mild pulmonary vascular congestion and mild interstitial edema. Bones/joints: Sternotomy wires. XR/XR chest 1V portable [id number] IMPRESSION: 1. Cardiomegaly, mild pulmonary vascular congestion and mild interstitial edema. 2. Bibasilar atelectasis versus minimal infiltrate. 3. Sternotomy wires.
--- NOTE | 2023-10-05 22:34 | CTR_ITS ---
PROCEDURE INFORMATION: Exam: CT Head Without Contrast Exam date and time: 10/05/2023 10:51 PM Age: 88 years old Clinical indication: Other: Weak; Additional info: Weakness TECHNIQUE: Imaging protocol: Computed tomography of the head without contrast. Radiation optimization: All CT scans at this facility use at least one of these dose optimization techniques: automated exposure control; mA and/or kV adjustment per patient size (includes targeted exams where dose is matched to clinical indication); or iterative reconstruction. COMPARISON: No relevant prior studies available. RADIATION DOSE METRICS: Total DLP (mGy-cm): 1194.1 FINDINGS: Brain: Normal. No hemorrhage. Unremarkable white matter. No mass effect. Cerebral ventricles: No ventriculomegaly. Paranasal sinuses: Visualized sinuses are unremarkable. No fluid levels. Mastoid air cells: Visualized mastoid air cells are well aerated. Bones: Unremarkable. No acute fracture. Soft tissues: Unremarkable. CT/CT head wo con* [id number] IMPRESSION: No acute intracranial abnormality.
[2023-10-05 22:57] LABS: Basophils # 0.1 10^3/uL (0.0-0.1); Basophils % 0.6 %; Eosinophils # 0.1 10^3/uL (0.0-0.8); Eosinophils % 0.4 %; Lymphocytes % 7.9 %; Mean Corpuscular HGB Conc 33.6 g/dL (30-55); Mean Corpuscular Hemoglobin 32.9 pg (27-33); Mean Platelet Volume 9.6 fL (7.4-10.4); Monocytes # 0.8 10^3/uL (0.2-0.9); Monocytes % 6.4 %; Neutrophils # 10.31 10^3/uL (1.8-7.7); Neutrophils % 84.1 %; Nucleated Red Blood Cells % 0 %; Platelet Count 208 10^3/cmm (157-399); Red Blood Count 3.98 10^6/uL (3.85-5.65); Red Cell Distribution Width 13.3 % (12.1-15.1); White Blood Count 12.26 10^3/uL (3.29-11.43)
--- NOTE | 2023-10-05 23:02 | ECG_ITS ---
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 Measurements Intervals [place] Rate: 77 P: 0 CT: 0 QRS: 69 QRSD: 154 T: -40 QT: 428 QTc: 487 Interpretive Statements UNCERTAIN REGULAR RHYTHM LEFT BUNDLE BRANCH BLOCK [120+ ms QRS DURATION, 80+ ms Q/S IN V1/V2, 85+ ms R IN I/aVL/V5/V6] Compared to ECG 09/28/2022 07:18:57 Left bundle-branch block now present Sinus bradycardia no longer present Electronically Signed On 10-05-2023 23:27:10 CDT by Omari Marquis M.D. [email or web address]/store/[id number]
[2023-10-05 23:19] LABS: Troponin(5th) Baseline 33 ng/L (0-15)
[2023-10-05 23:22] LABS: Alanine Aminotransferase 13 U/L (0-41); Albumin Level 4.4 g/dL (3.5-5.2); Alkaline Phosphatase 93 U/L (40-130); Anion Gap 19.7 (5-19); Aspartate Amino Transferase 14 U/L (0-40); Blood Urea Nitrogen 35 mg/dL (8-23); Calcium 8.2 mg/dL (8.5-10.5); Carbon Dioxide 18 mmol/L (22-29); Chloride 111 mmol/L (98-107); Creatine Phosphokinase 54 U/L (39-308); Creatinine Clr Calc Pharmacy 42.3973; Globulin 2.2 g/dL (1.3-4.6); Glucose 128 mg/dL (65-115); Osmolality Calculated 306 mOsm/kg (285-295); Potassium 5.7 mmol/L (3.5-5.1); Sodium 143 mmol/L (136-145); Total Bilirubin 0.3 mg/dL (0.15-1.2); Total Protein 6.6 g/dL (6.6-8.7)
[2023-10-05 23:23] LABS: Lactic Sepsis W/Reflex 1.6 mmol/L (0.5-2.2)
[2023-10-05 23:26] LABS: Glucose Urine UA Norm (Normal); Ketones Urine 1+ (Negative); Protein Urine Trace (Negative); Specific Gravity, Urine 1.015 (1.005-1.030); Urine Appearance Slightly Cloudy (CLEAR); Urine Color Yellow (Yellow); pH Urine 5 (5-7)
[2023-10-05 23:27] LABS: Amorphous Sediment Urine 1+ /hpf; Bacteria Urine 1+ /hpf; Bilirubin Urine Neg (Negative); Blood Urine 3+ (Negative); Leukocyte Esterase Urine Trace (Negative); Mucus Urine 2+ /hpf; Nitrate Urine Negative (Negative); RBC Urine 15-25 /hpf (0-2); Urobilinogen Urine Neg (Negative)
[2023-10-05 23:28] LABS: Add Urine Culture? No
--- NOTE | 2023-10-05 23:32 | ED_ITS ---
HPI - Fall 2 General: Chief Complaint: Fall Stated Complaint: Weakness Time Seen by Provider: 10/05/23 22:32 History of Present Illness: 88-year-old man with a history of badillo ry artery disease, recurrent UTIs, SVT, gout who presents to the emergency room with progressive weakness over the last month and then a fall today where he could not get up for about 30 minutes so his finally called an ambulance. He says he did not hit his head and does not have any new pain or injuries. He has a right-sided pill-rolling tremor. He says that is been present there for some time but he has not been diagnosed with Parkinson's. His right side both his arm and his legs seem weaker than his left. He claims the right leg is weaker because of a shoulder surgery on the right arm is weaker because of carpal tunnel surgery. However the seem to have gotten worse recently. No facial droop. No altered mental status. No slurred speech. No chest pain. No cough. No abdominal pain. He does note he has been having some urinary symptoms with increased frequency and some incontinence. Review of Systems 2 Narrative: Constitutional symptoms: Negative except as documented in HPI. Skin symptoms: Negative except as documented in HPI. Eye symptoms: Negative except as documented in HPI. ENMT symptoms: Negative except as documented in HPI. Respiratory symptoms: Negative except as documented in HPI. Cardiovascular symptoms: Negative except as documented in HPI. Gastrointestinal symptoms: Negative except as documented in HPI. Genitourinary symptoms: Negative except as documented in HPI. Musculoskeletal symptoms: Negative except as documented in HPI. Neurologic symptoms: Negative except as documented in HPI. Psychiatric symptoms: Negative except as documented in HPI. Endocrine symptoms: Negative except as documented in HPI. PFSH ED 2 PFSH: Medical History Atherosclerosis of coronary artery Bladder cancer Goiter Gouty arthritis History of bradycardia History of paroxysmal supraventricular tachycardia Hx of carpal tunnel syndrome Incomplete bladder emptying Mitral valve prolapse Recurrent UTI Surgical History History of total right hip arthroplasty S/P TURP (status post transurethral resection of prostate) Family History Father , at age 69 Suicide Mother , at age 89 CAD (coronary artery disease) Diabetes Sister Diabetes Lung disease Brother Diabetes Stroke Denies family history of Clotting disorder Dementia Chronic kidney disease (CKD) Anesthesia complication Bleeding disorder Cancer Social History Smoking and tobacco/nicotine status: former use of tobacco/nicotine Alcohol intake: never Marital status: Current occupational status: retired Physical Exam 2 Narrative: EXAM NARRATIVE: General: Alert, no acute distress. Skin: Warm, dry. Head: Normocephalic, atraumatic. Neck: Supple, trachea midline. Eye: Extraocular movements are intact. Ears, nose, mouth and throat: mucosa moist. Cardiovascular: Regular, Normal peripheral perfusion. Respiratory: Lungs are clear to auscultation, respirations are non-labored, breath sounds are equal, Symmetrical chest wall expansion. Gastrointestinal: Soft, Nontender, Non distended Musculoskeletal: Normal ROM, no deformity. Neurological: Alert and oriented, No focal neurological deficit observed. Psychiatric: Cooperative, appropriate mood & affect. Course 2 Vital Signs: Vital signs: Vital Signs Temperature 98.5 F 10/05/23 22:27 Pulse Rate 74 10/05/23 23:33 Respiratory Rate 18 10/05/23 22:27 Blood Pressure 124/44 10/05/23 23:33 Pulse Oximetry 96 10/05/23 23:33 Oxygen Delivery Me thod Room Air 10/05/23 23:33 MDM - Fall Medical Decision Making Medical decision making: Differential diagnosis for patient presenting with generalized weakness including but not limited to and based on the above HPI, review of systems and physical exam: Sepsis. Dehydration. Renal failure. Electrolyte abnormalities. Anemia. Congestive heart failure. Hypotension. Coronary syndrome. Hepatitis. Cirrhosis. Infections such as pneumonia, urinary tract infection, Tick bourne illness, Cellulitis, Viral infections including influenza and Covid-19. Workup: labwork and lab/exam driven imaging ordered to evaluate, rule in and rule out above pathologies. EKG: Time 2302. Rate 77. Normal sinus rhythm, No ST-T changes, no ectopy, left bundle branch block, This was reviewed and interpreted by myself the ER physician at 2305 Repeat EKG: Time 0020. Rate 79. Normal sinus rhythm, No ST-T changes, no ectopy, left bundle branch block, This was reviewed and interpreted by myself the ER physician at 0023. No changes from previous EKG. Chest x-ray: Poor inspiration versus early congestion/failure. Sternotomy wires are in place. No infiltrate. No pneumothorax. This was reviewed and interpreted by myself the ER physician. CT head: No white matter changes. No acute intracranial process. no intracranial hemorrhage, no evidence of infarct. no evidence of acute fracture.This was reviewed and interpreted by myself the ER physician. Lab Review: Laboratory results were reviewed and interpreted by myself the emergency room physician. Mild leukocytosis with a white count of 12. Worsening renal insufficiency. He is BUN and creatinine are 35 and 1.4. About a week ago his creatinine was 1.3. Prior to that he was around 1.1. Troponin is 33 initially. CRP is 3. Urinalysis has 10-15 whites with 1+ bacteria and he is symptomatic so I am treating. I reviewed the patient's medical record. Reexamination: Patient remained stable. No change in his neuroexam. He continues to have a right-sided pill-rolling tremor with weakness in his arm and in his leg. Consultation: I spoke with Dr. Morales who is on-call for the hospitalist and is admitting the patient. Assessment and plan: Weakness UTI Falls Pill-rolling tremor Debility ?IV cefepime for urinary tract infection. I am holding on any fluids right now as I do not really believe he is septic because he has maintained his pressure. He was little tachycardic initially but I think that was more from moving from beds. He has significant swelling in his legs and concern for early heart failure on his chest x-ray so we will hold on fluids for now and defer to the hospitalist for that. -I discussed the patient with the hospitalist on-call who is admitting the patient. - Discussed findings and plan with patient. Answered any questions. - All laboratory values were reviewed and interpreted personally by myself, the ER physician - All imaging was reviewed and interpreted personally by myself, the ER physician. - Evaluation and treatment of this problem were appropriate in the emergency setting Lab Data 10/05/23 22:45 10/05/23 22:45 Radiology Impressions Chest X-Ray 10/05/23 22:33 IMPRESSION: 1. Cardiomegaly, mild pulmonary vascular congestion and mild interstitial edema. 2. Bibasilar atelectasis versus minimal infiltrate. 3. Sternotomy wires. Head CT 10/05/23 22:34 IMPRESSION: No acute intracranial abnormality. Laboratory Results WBC 12.26 10^3/uL (3.29-11.43) H 10/05/23 22:45 RBC 3.98 10^6/uL (3.85-5.65) 10/05/23 22:45 Hgb 13.10 g/dL (11.27-16.99) 10/05/23 22:45 Hct 39.0 % (37-53) 10/05/23 22:45 MCV 98.0 fl (82-101) 10/05/23 22:45 MCH 32.9 pg (27-33) 10/05/23 22:45 MCHC 33.6 g/dL (30-55) 10/05/23 22:45 RDW 13.3 % (12.1-15.1) 10/05/23 22:45 Plt Count 208 10^3/cmm (157-399) 10/05/23 22:45 MPV 9.6 fL (7.4-10.4) 10/05/23 22:45 Neut % (Auto) 84.1 % 10/05/23 22:45 Lymph % (Auto) 7.9 % 10/05/23 22:45 Dickenson % (Auto) 6.4 % 10/05/23 22:45 Eos % (Auto) 0.4 % 10/05/23 22:45 Baso % (Auto) 0.6 % 10/05/23 22:45 Neut # (Auto) 10.31 10^3/uL (1.8-7.7) H 10/05/23 22:45 Lymph # (Auto) 1.0 10^3/uL (0.8-4.8) 10/05/23 22:45 Dickenson # (Auto) 0.8 10^3/uL (0.2-0.9) 10/05/23 22:45 Eos # (Auto) 0.1 10^3/uL (0.0-0.8) 10/05/23 22:45 Baso # (Auto) 0.1 10^3/uL (0.0-0.1) 10/05/23 22:45 Nucleated RBC % (auto) 0 % 10/05/23 22:45 Nucleated RBCs # 0.0 /100WBC 10/05/23 22:45 Sodium 143 mmol/L (136-145) 10/05/23 22:45 Potassium 5.7 mmol/L (3.5-5.1) H 10/05/23 22:45 Chloride 111 mmol/L (98-107) H 10/05/23 22:45 Carbon Dioxide 18 mmol/L (22-29) L 10/05/23 22:45 Anion Gap 19.7 (5-19) H 10/05/23 22:45 BUN 35 mg/dL (8-23) H 10/05/23 22:45 Creatinine 1.4 mg/dL (0.7-1.2) H 10/05/23 22:45 GFR Calculation Not Reportable 10/05/23 22:45 Glucose 128 mg/dL (65-115) H 10/05/23 22:45 Calculated Osmolality 306 mOsm/kg (285-295) H 10/05/23 22:45 Lactic Acid 1.6 mmol/L (0.5-2.2) 10/05/23 22:45 Calcium 8.2 mg/dL (8.5-10.5) L 10/05/23 22:45 Total Bilirubin 0.3 mg/dL (0.15-1.2) 10/05/23 22:45 AST 14 U/L (0-40) 10/05/23 22:45 ALT 13 U/L (0-41) 10/05/23 22:45 Alkaline Phosphatase 93 U/L (40-130) 10/05/23 22:45 Creatine Kinase 54 U/L (39-308) 10/05/23 22:45 Troponin T Baseline 33 ng/L (0-15) H 10/05/23 22:45 Delta Troponin T 1.91 ABS# (0-10) 10/06/23 00:30 C-Reactive Protein 3.0 mg/L (0.0-4.9) 10/05/23 22:45 Total Protein 6.6 g/dL (6.6-8.7) 10/05/23 22:45 Albumin 4.4 g/dL (3.5-5.2) 10/05/23 22:45 Globulin 2.2 g/dL (1.3-4.6) 10/05/23 22:45 Urine Color Yellow (Yellow) 10/05/23 23:12 Urine Appearance Slightly cloudy (CLEAR) 10/05/23 23:12 Urine pH 5 (5-7) 10/05/23 23:12 Ur Specific Chandler 1.015 (1.005-1.030) 10/05/23 23:12 Urine Protein Trace (Negative) 10/05/23 23:12 Urine Glucose (UA) Norm (Normal) 10/05/23 23:12 Urine Ketones 1+ (Negative) H 10/05/23 23:12 Urine Blood 3+ (Negative) H 10/05/23 23:12 Urine Nitrate Negative (Negative) 10/05/23 23:12 Urine Bilirubin Neg (Negative) 10/05/23 23:12 Urine Urobilinogen Neg mg/dL (Negative) 10/05/23 23:12 Ur Leukocyte Esterase Trace (Negative) H 10/05/23 23:12 Urine RBC 15-25 /hpf (0-2) H 10/05/23 23:12 Urine WBC 10-15 /hpf (0-5) H 10/05/23 23:12 Ur Squamous Epith Cells 10-15 /hpf (0-5) H 10/05/23 23:12 Ur Transition Epith Cell 5-10 /hpf 10/05/23 23:12 Amorphous Sediment 1+ /hpf 10/05/23 23:12 Urine Bacteria 1+ /hpf (NONE) H 10/05/23 23:12 Urine Mucus 2+ /hpf 10/05/23 23:12 All radiology interpretation(s) finalized by discharge Discharge Plan Discharge Patient Disposition: Admitted As Inpatient Clinical Impression: Urinary tract infection, Weakness, Falls, Pill rolling tremor Condition: Stable Coding Level of Care Code ED Fitter Machinist for Yung Garnica
[2023-10-05 23:33] VITALS: BP 124/44; PULSE 74; O2SAT 96
[2023-10-06] VITALS (7 sets, daily range): BP systolic 113–146; BP diastolic 43–65; PULSE 56–76; RESP 16–18; TEMP 36.5–36.8; O2SAT 94–96; BMI 30.5
[2023-10-06] MEDS: cefTRIAXone 1,000 mg SDV 1000 MG IVP (00:25)
--- NOTE | 2023-10-06 00:34 | ECG_ITS ---
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 Measurements Intervals [place] Rate: 79 P: 39 MT: 197 QRS: 2 QRSD: 156 T: 90 QT: 436 QTc: 500 Interpretive Statements SINUS RHYTHM LEFT BUNDLE BRANCH BLOCK [120+ ms QRS DURATION, 80+ ms Q/S IN V1/V2, 85+ ms R IN I/aVL/V5/V6] Compared to ECG 10/05/2023 23:02:35 No significant changes Electronically Signed On 10-06-2023 11:45:37 CDT by Antoine Lo M.D. [id number]
[2023-10-06 00:53] LABS: Troponin 5 2HR 34.91 ng/L (0-15); Troponin 5 2HR Delta 1.91 ABS# (0-10)
--- NOTE | 2023-10-06 01:20 | P.HP_ITS ---
Providers/Chief Complaint 2 Admitting Physician: Princess Morales MD Primary Care Provider: Charli Piña MD Chief Complaint: Weakness History of Present Illness Ricardo Nelson is a 88 year old male who recently had carpal tunnel release surgery, lives with his , uses a walker cane, presented with chief complaint generalized weakness and tremors of his extremities. Patient is stating that he is feeling weak, he could not balance himself today and fell without any chest pain shortness of breath nausea vomiting or syncope. In the ER he was diagnosed with UTI with hyperkalemia. Clinically looks in heart failure. Hemodynamically stable. Patient is stating that he has to manage is going on 1 that he is not able to sleep because he has to get up like 30 times not to go to the bathroom and he still feels that his bladder is not completely emptying. He is also endorsing constipation. No active nausea or vomiting. Review of Systems 2 Const: Reports: chills, body aches, change in weight and fatigue; Denies: fever(s) Eyes: Denies: change in vision ENMT: Denies: throat pain Card: Reports: swelling of feet/ankles Resp: Reports: dyspnea GI: Denies: abdominal pain : Denies: flank pain Musc: Reports: extremity pain Medications/Allergies Home Medications Medication Instructions Recorded Confirmed Last Taken Type ascorbic acid (vitamin C) 500 mg 500 mg PO BID 08/20/19 10/13/22 09/27/22 History capsule aspirin 81 mg tablet,delayed 81 mg PO DAILY 08/20/19 10/13/22 09/25/22 History release acetaminophen 325 mg tablet 500 mg PO QID PRN Pain 07/21/20 10/13/22 09/27/22 History (Tylenol) nitroglycerin 0.4 mg sublingual 0.4 mg sublingual Q5M PRN chest 01/28/21 10/13/22 Unknown History tablet pain Cock Up Splint #1 ea 08/01/22 10/13/22 Unknown Rx amlodipine 10 mg tablet 10 mg PO DAILY #90 tabs 10/28/22 Unknown Rx levothyroxine 25 mcg tablet See Rx Instructions .Route 03/30/23 Unknown Rx .COMPLEX #90 tabs atorvastatin 40 mg tablet See Rx Instructions .Route 06/23/23 Unknown Rx .COMPLEX #90 tabs lisinopril 40 mg tablet See Rx Instructions .Route 07/05/23 Unknown Rx .COMPLEX #90 tabs methenamine hippurate 1 gram tablet See Rx Instructions .Route 08/01/23 Unknown Rx .COMPLEX #180 tabs Allergies Allergy/AdvReac Type Severity Reaction Status Date / Time No Known Allergies Allergy Verified 10/13/22 09:56 PFSH Acute 2 PFSH: Medical History (Updated 10/06/23 @ 01:26 by Princess Morales MD) Hx of goiter History of transcatheter aortic valve replacement (TAVR) Atherosclerosis of coronary artery Incomplete bladder emptying Hx of carpal tunnel syndrome History of bradycardia Mitral valve prolapse Recurrent UTI History of paroxysmal supraventricular tachycardia Gouty arthritis Goiter Bladder cancer Surgical History (Updated 10/06/23 @ 01:26 by Princess Morales MD) History of bladder surgery History of PTCA Hx of CABG H/O heart artery stent History of total right hip arthroplasty S/P TURP (status post transurethral resection of prostate) Family History Father , at age 69 Suicide Mother , at age 89 CAD (coronary artery disease) Diabetes Sister Diabetes Lung disease Brother Diabetes Stroke Denies family history of Clotting disorder Dementia Chronic kidney disease (CKD) Anesthesia complication Bleeding disorder Cancer Social History Smoking and tobacco/nicotine status: former use of tobacco/nicotine Alcohol intake: never Marital status: Current occupational status: retired Vitals/I&O/Wt Last Vital Signs Temp 98.5 F 10/05/23 22:27 Pulse 74 10/05/23 23:33 Resp 18 10/05/23 22:27 BP 124/44 10/05/23 23:33 Pulse Ox 96 10/05/23 23:33 O2 Del Method Room Air 10/05/23 23:33 Weight last 48 hrs Weight 95.254 kg Physical Exam 2 Narrative: Active sign of heart failure Hemodynamic stable Necessity Distended abdomen nontender Soft abdomen bowel sounds sluggish No audible stridor or wheezing S1, S2 Nonfocal neuroexam Extremity edema noted 2+ Pedal edema Pleasant cooperative Nonfocal neuroexam Data 10/05/23 22:45 10/05/23 22:45 Micro: Microbiology 10/05/23 22:48 Blood Culture - Preliminary Blood SPECIMEN COLLECTED 10/05/23 22:45 Blood Culture - Preliminary Blood SPECIMEN COLLECTED A&P Assessment and plan (1) S/P TAVR (transcatheter aortic valve replacement): (2) Acute exacerbation of CHF (congestive heart failure): (3) Hypothyroid: Qualifiers: Hypothyroidism type: acquired Qualified Code(s): E03.9 - Hypothyroidism, unspecified (4) Incomplete bladder emptying: (5) Nocturia: (6) Recurrent UTI: (7) Urinary tract infection: (8) Weakness: (9) Falls: (10) HALEY (acute kidney injury): (11) Hyperkalemia: Plan Generalized weakness and fatigue Active UTI Pill-rolling tremors right hand Resting tremors, Parkinson's? Hyperkalemia with HALEY Acute diastolic CHF exacerbation I will go ahead place Wang catheter because patient is complaining of BPH nocturia and insomnia Give IV Lasix, patient does not take diuretics at home Recheck BMP after giving Lasix Start patient on ceftriaxone Hold lisinopril Hold amlodipine Continue diuresis for now Check B12 and TSH Patient has been experiencing generalized weakness and fatigue resulting in falls Uses a cane and a walker at home, lives with his Request PT Patient also has history of TAVR For his tremors he may need neuroconsultation, pill-rolling tremor right hand rule out Parkinson's Attestations 2 Medical Necessity Statement*: Anticipate more than 2 midnights in the hospital Diagnoses S/P TAVR (transcatheter aortic valve replacement) Z95.2 Acute exacerbation of CHF (congestive heart failure) I50.9 Acquired hypothyroidism E03.9 Hypothyroidism type: acquired Incomplete bladder emptying R33.9 Nocturia R35.1 Recurrent UTI N39.0 Urinary tract infection N39.0 Weakness R53.1 Falls R29.6 HALEY (acute kidney injury) N17.9 Hyperkalemia E87.5
--- NOTE | 2023-10-06 01:29 | PC.NURSE ---
Report was called to Yaya ROB on Med-Surg. All questions and concerns were addressed at time of report.
[2023-10-06] MEDS: FUROsemide 10 mg/mL SDV 2mL 20 MG IVP (02:32)
[2023-10-06] MEDS: dextrose 10% 250 ML 1000 ML IV (02:46)
[2023-10-06] MEDS: insulin regular-human 10 UNIT in SYRINGE 1 EACH 5 UNIT IVP (02:47)
[2023-10-06] MEDS: calcium gluconate 0.1 gm/mL 10% SDV 10mL 1 GM IVP (02:49)
--- NOTE | 2023-10-06 04:12 | ECG_ITS ---
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 Measurements Intervals [place] Rate: 63 P: 47 HI: 177 QRS: -22 QRSD: 158 T: 82 QT: 448 QTc: 460 Interpretive Statements SINUS RHYTHM WITH FREQUENT VENTRICULAR PREMATURE COMPLEXES LEFT BUNDLE BRANCH BLOCK [120+ ms QRS DURATION, 80+ ms Q/S IN V1/V2, 85+ ms R IN I/aVL/V5/V6] Compared to ECG 10/06/2023 00:20:02 Ventricular premature complex(es) now present Electronically Signed On 10-06-2023 11:44:15 CDT by Antoine Lo M.D. [id number]
[2023-10-06 05:23] LABS: Basophils # 0.1 10^3/uL (0.0-0.1); Basophils % 0.5 %; Eosinophils # 0.1 10^3/uL (0.0-0.8); Eosinophils % 0.9 %; Hematocrit 38.5 % (37-53); Lymphocytes # 1.7 10^3/uL (0.8-4.8); Lymphocytes % 17.7 %; Mean Corpuscular HGB Conc 32.2 g/dL (30-55); Mean Corpuscular Hemoglobin 32.5 pg (27-33); Mean Corpuscular Volume 100.8 fl (82-101); Mean Platelet Volume 10.5 fL (7.4-10.4); Monocytes % 10.6 %; Neutrophils # 6.73 10^3/uL (1.8-7.7); Neutrophils % 69.9 %; Nucleated Red Blood Cells % 0 %; Platelet Count 188 10^3/cmm (157-399); Red Blood Count 3.82 10^6/uL (3.85-5.65); Red Cell Distribution Width 13.2 % (12.1-15.1); White Blood Count 9.63 10^3/uL (3.29-11.43)
[2023-10-06 05:37] LABS: Troponin 5 6HR 40.91 ng/L (0-15); Troponin 5 6HR Delta 7.91 ng/L (0-12)
[2023-10-06 05:44] LABS: Blood Urea Nitrogen 33 mg/dL (8-23); Calcium 8.4 mg/dL (8.5-10.5); Carbon Dioxide 21 mmol/L (22-29); Chloride 107 mmol/L (98-107); Creatinine Clr Calc Pharmacy 41.5226; Glucose 53 mg/dL (65-115); Magnesium 2.2 mg/dL (1.7-2.3); Osmolality Calculated 295 mOsm/kg (285-295); Phosphorus 3.5 mg/dL (2.5-4.5); Sodium 140 mmol/L (136-145)
[2023-10-06 05:45] LABS: Anion Gap 17.2 (5-19); Potassium 5.2 mmol/L (3.5-5.1)
[2023-10-06] MEDS: levothyroxine 25 mcg Tablet PO (05:51)
[2023-10-06 06:05] LABS: Thyroid Stimulating Hormone 1.59 uIU/mL (0.27-4.20); Vitamin B12 223 pg/mL (232-1245)
[2023-10-06 06:42] LABS: Glucose Point of Care 110 mg/dL (70-110)
[2023-10-06] MEDS: sennosides-docusate Tablet 2 TAB PO (09:02)
[2023-10-06] MEDS: lactulose oral liq 20 gm/30 mL UDC 10 GM PO (09:02)
[2023-10-06] MEDS: tamsulosin 0.4 mg Capsule PO (09:02)
[2023-10-06] MEDS: aspirin 81 mg EC Tablet PO (09:02)
[2023-10-06] MEDS: nystatin powder 15 gm Btl 1 APPLIC TOPICAL ×2 (09:03→18:36)
[2023-10-06] MEDS: acetaminophen 500 mg Tablet PO ×2 (12:15→21:22)
--- NOTE | 2023-10-06 14:47 | P.MISC_ITS ---
Miscellaneous Note Purpose of Documentation: Overnight labs and H&P reviewed. Patient states that he has been feeling i ncreasingly weak for many months now. He has been having increasing recurrent falls at home. He presented to the emergency room last night as he fell off a 7 inch step when trying to get into his living room. States he has been getting progressively weaker and has had to hold onto furniture for the past several months now. He feels both his arms and legs are weak. He has an inconsistent tremor in his right hand pill-rolling type for which we will refer him to neurology as an outpatient. Hyperkalemia is improving today. Creatinine stable. Urine culture is pending. Urine output 2500 cc. awaiting therapy assessments for appropriate disposition planning.
[2023-10-06] MEDS: atorvastatin 40 mg Tablet PO (21:22)
[2023-10-07] VITALS (8 sets, daily range): BP systolic 122–141; BP diastolic 54–65; PULSE 55–78; RESP 16–18; TEMP 36.6–36.9; O2SAT 93–96
[2023-10-07] MEDS: cefTRIAXone 1,000 MG in sodium chloride 0.9% (plus) 50 ML 100 MG IV ×2 (01:27→23:50)
[2023-10-07] MEDS: levothyroxine 25 mcg Tablet PO (05:49)
[2023-10-07] MEDS: lactulose oral liq 20 gm/30 mL UDC 10 GM PO (09:18)
[2023-10-07] MEDS: amlodipine 10 mg Tablet PO (09:20)
[2023-10-07] MEDS: nystatin powder 15 gm Btl 1 APPLIC TOPICAL ×2 (09:20→19:16)
[2023-10-07] MEDS: sennosides-docusate Tablet 2 TAB PO (09:20)
[2023-10-07] MEDS: tamsulosin 0.4 mg Capsule PO (09:20)
[2023-10-07] MEDS: aspirin 81 mg EC Tablet PO (09:20)
--- NOTE | 2023-10-07 15:48 | P.PN_ITS ---
Subjective 2 Subjective: Leukocytosis has resolved. No new complaints. Will try Wang catheter removal today and voiding trial. Medications: Reviewed: Yes Vitals/I&O/Wt Last Vital Signs Temp 98 F 10/07/23 12:21 Pulse 69 10/07/23 14:34 Resp 17 10/07/23 12:21 BP 141/57 10/07/23 12:21 Pulse Ox 95 10/07/23 12:21 O2 Del Method Room Air 10/07/23 12:21 10/07/23 10/07/23 10/07/23 06:59 14:59 22:59 Intake Total 50 / 1610 600 / 600 Output Total 300 / 2700 875 / 875 Balance -250 / -1090 -275 / -275 Weight last 48 hrs Weight 96.388 kg Weight 92.646 kg Weight 91.172 kg Weight 95.254 kg Physical Exam 2 Narrative: General: No acute distress, AO x3 HEENT: PERRLA, pupils bilaterally equal and reactive, pallors not present Chest: Normal vesicular breath sounds, no added sounds, equal good air entry bilaterally CVS: S1-S2 regular, no murmurs, no tachycardia, no gallops, no rubs Abdomen: Soft, nontender, no organomegaly, bowel sounds present Neuro: No focal deficits, no facial deformity, AO x3, power 5/5 in all limbs Urinary Catheter Management: Wang: Cath Placed During This Visit: yes Reason for Continuing Indwelling Catheter: Acute Urinary Retention or Obstruction Urinary Catheter Date of Insertion: 10/06/23 Urinary Catheter Time of Insertion: 01:59 Data 10/08/23 02:50 10/08/23 02:50 Micro: Microbiology 10/05/23 22:48 Blood Culture - Preliminary Blood NEGATIVE TO DATE 10/05/23 22:45 Blood Culture - Preliminary Blood NEGATIVE TO DATE A&P Assessment and plan (1) S/P TAVR (transcatheter aortic valve replacement): (2) Acute exacerbation of CHF (congestive heart failure): (3) Hypothyroid: Qualifiers: Hypothyroidism type: acquired Qualified Code(s): E03.9 - Hypothyroidism, unspecified (4) Incomplete bladder emptying: (5) Nocturia: (6) Recurrent UTI: (7) Urinary tract infection: (8) Weakness: (9) Falls: (10) HALEY (acute kidney injury): (11) Hyperkalemia: Plan Generalized weakness and fatigue Active UTI Pill-rolling tremors right hand Resting tremors, Parkinson's? Hyperkalemia with HALEY Acute diastolic CHF exacerbation I will go ahead place Wang catheter because patient is complaining of BPH nocturia and insomnia Give IV Lasix, patient does not take diuretics at home Recheck BMP after giving Lasix Start patient on ceftriaxone Hold lisinopril Hold amlodipine Continue diuresis for now Check B12 and TSH Patient has been experiencing generalized weakness and fatigue resulting in falls Uses a cane and a walker at home, lives with his Request PT Patient also has history of TAVR For his tremors he may need neuroconsultation, pill-rolling tremor right hand rule out Parkinson's October 06, 2023: Patient states that he has been feeling increasingly weak for many months now. He has been having increasing recurrent falls at home. He presented to the emergency room last night as he fell off a 7 inch step when trying to get into his living room. States he has been getting progressively weaker and has had to hold onto furniture for the past several months now. He feels both his arms and legs are weak. He has an inconsistent tremor in his right hand pill-rolling type for which we will refer him to neurology as an outpatient. Hyperkalemia is improving today. Creatinine stable. Urine culture is pending. Urine output 2500 cc. awaiting therapy assessments for appropriate disposition planning. October 07, 2023. Urine output is over 2 L. Urine culture thus far negative to date.Continue ceftriaxone 1 g IV every 24 hours for UTI. Attempt Wang catheter removal today, patient complaining of diarrhea, check C. difficile. Voiding trial. Attestations 2 Medical Necessity Statement*: Continue IV ceftriaxone, continue to monitor urine output, continue diuresis. Coding Level of Care Code Acute Code for Chg Fwd Moderate MDM includes number and complexity of problems actively addressed during encounter, amount and/or complexity of data reviewed/ordered and described risk of complication, morbidity or mortality of management as documented Diagnoses S/P TAVR (transcatheter aortic valve replacement) Z95.2 Acute exacerbation of CHF (congestive heart failure) I50.9 Acquired hypothyroidism E03.9 Hypothyroidism type: acquired Incomplete bladder emptying R33.9 Nocturia R35.1 Recurrent UTI N39.0 Urinary tract infection N39.0 Weakness R53.1 Falls R29.6 HALEY (acute kidney injury) N17.9 Hyperkalemia E87.5
[2023-10-07] MEDS: acetaminophen 500 mg Tablet PO ×2 (19:19→23:50)
[2023-10-07] MEDS: atorvastatin 40 mg Tablet PO (19:19)
[2023-10-08] VITALS (8 sets, daily range): BP systolic 129–161; BP diastolic 53–64; PULSE 54–85; RESP 15–19; TEMP 36.6–37.2; O2SAT 93–96
--- NOTE | 2023-10-08 04:03 | PC.NURSE ---
Addendum entered by Teresa Little RN 10/08/23 04:58: Dr. Morales ordered to place briggs. Original Note: Dr. Morales notified of the following: Patient had a briggs placed upon admission due to urinary retention. There was an order to remove the briggs and I removed it at 9pm. Since then, he has only voided 150 ml. His bladder scan currently shows 426 ml.
[2023-10-08 04:07] LABS: Basophils % 0.6 %; Eosinophils # 0.2 10^3/uL (0.0-0.8); Eosinophils % 2.3 %; Hematocrit 35.4 % (37-53); Lymphocytes # 1.5 10^3/uL (0.8-4.8); Lymphocytes % 22.5 %; Mean Corpuscular HGB Conc 32.5 g/dL (30-55); Mean Corpuscular Hemoglobin 32.3 pg (27-33); Mean Corpuscular Volume 99.4 fl (82-101); Monocytes # 0.7 10^3/uL (0.2-0.9); Neutrophils # 4.18 10^3/uL (1.8-7.7); Neutrophils % 64.3 %; Nucleated Red Blood Cells % 0 %; Platelet Count 174 10^3/cmm (157-399); Red Blood Count 3.56 10^6/uL (3.85-5.65); Red Cell Distribution Width 13.2 % (12.1-15.1)
[2023-10-08 04:34] LABS: Alanine Aminotransferase 13 U/L (0-41); Albumin Level 3.6 g/dL (3.5-5.2); Alkaline Phosphatase 80 U/L (40-130); Anion Gap 16.4 (5-19); Aspartate Amino Transferase 16 U/L (0-40); Blood Urea Nitrogen 25 mg/dL (8-23); Calcium 7.8 mg/dL (8.5-10.5); Carbon Dioxide 20 mmol/L (22-29); Chloride 110 mmol/L (98-107); Creatinine Clr Calc Pharmacy 54.2695; Globulin 2.4 g/dL (1.3-4.6); Glucose 118 mg/dL (65-115); Osmolality Calculated 299 mOsm/kg (285-295); Potassium 4.4 mmol/L (3.5-5.1); Sodium 142 mmol/L (136-145); Total Bilirubin 0.3 mg/dL (0.15-1.2)
--- NOTE | 2023-10-08 05:14 | PC.NURSE ---
Addendum entered by Teresa Little RN 10/08/23 05:19: PRN Russellitussin ordered. Original Note: Dr. Morales notified of patient asking for something to help with cough.
[2023-10-08] MEDS: guaiFENesin 100 mg/5 mL UDC 10 mL 200 MG PO (05:28)
[2023-10-08] MEDS: acetaminophen 500 mg Tablet PO ×3 (05:28→17:39)
[2023-10-08] MEDS: levothyroxine 25 mcg Tablet PO (05:28)
[2023-10-08] MEDS: tamsulosin 0.4 mg Capsule PO (08:34)
[2023-10-08] MEDS: lactulose oral liq 20 gm/30 mL UDC 10 GM PO (08:34)
[2023-10-08] MEDS: amlodipine 10 mg Tablet PO (08:35)
[2023-10-08] MEDS: sennosides-docusate Tablet 2 TAB PO (08:35)
[2023-10-08] MEDS: aspirin 81 mg EC Tablet PO (08:35)
[2023-10-08 11:04] LABS: C.Diff PCR (Lab) NEGATIVE (Negative)
--- NOTE | 2023-10-08 19:15 | P.PN_ITS ---
Subjective 2 Subjective: Patient states he is feeling stronger today. Saturating well on room air. No new complaints. Medications: Reviewed: Yes Vitals/I&O/Wt Last Vital Signs Temp 98.9 F 10/08/23 16:00 Pulse 59 L 10/08/23 16:00 Resp 17 10/08/23 16:00 BP 147/53 10/08/23 16:00 Pulse Ox 94 10/08/23 16:00 O2 Del Method Room Air 10/08/23 16:00 10/08/23 10/08/23 10/08/23 06:59 14:59 22:59 Intake Total 50 / 1130 960 / 960 480 / 1440 Output Total 275 / 2075 1200 / 1200 750 / 1950 Balance -225 / -945 -240 / -240 -270 / -510 Weight last 48 hrs Weight 95.793 kg Weight 96.388 kg Physical Exam 2 Narrative: General: No acute distress, AO x3 HEENT: PERRLA, pupils bilaterally equal and reactive, pallors not present Chest: Normal vesicular breath sounds, no added sounds, equal good air entry bilaterally CVS: S1-S2 regular, no murmurs, no tachycardia, no gallops, no rubs Abdomen: Soft, nontender, no organomegaly, bowel sounds present Neuro: No focal deficits, no facial deformity, AO x3, power 5/5 in all limbs Urinary Catheter Management: Wang: Cath Placed During This Visit: yes, but has since been removed by the nurse Reason for Continuing Indwelling Catheter: Other Urinary Catheter Date of Insertion: 10/08/23 Urinary Catheter Time of Insertion: 05:12 Date Urinary Catheter Removed: 10/07/23 Time Urinary Catheter Discontinued: 21:15 Data 10/08/23 02:50 10/08/23 02:50 A&P Assessment and plan (1) S/P TAVR (transcatheter aortic valve replacement): (2) Acute exacerbation of CHF (congestive heart failure): (3) Hypothyroid: Qualifiers: Hypothyroidism type: acquired Qualified Code(s): E03.9 - Hypothyroidism, unspecified (4) Incomplete bladder emptying: (5) Nocturia: (6) Recurrent UTI: (7) Urinary tract infection: (8) Weakness: (9) Falls: (10) HALEY (acute kidney injury): (11) Hyperkalemia: Plan Generalized weakness and fatigue Active UTI Pill-rolling tremors right hand Resting tremors, Parkinson's? Hyperkalemia with HALEY Acute diastolic CHF exacerbation I will go ahead place Wang catheter because patient is complaining of BPH nocturia and insomnia Give IV Lasix, patient does not take diuretics at home Recheck BMP after giving Lasix Start patient on ceftriaxone Hold lisinopril Hold amlodipine Continue diuresis for now Check B12 and TSH Patient has been experiencing generalized weakness and fatigue resulting in falls Uses a cane and a walker at home, lives with his Request PT Patient also has history of TAVR For his tremors he may need neuroconsultation, pill-rolling tremor right hand rule out Parkinson's October 06, 2023: Patient states that he has been feeling increasingly weak for many months now. He has been having increasing recurrent falls at home. He presented to the emergency room last night as he fell off a 7 inch step when trying to get into his living room. States he has been getting progressively weaker and has had to hold onto furniture for the past several months now. He feels both his arms and legs are weak. He has an inconsistent tremor in his right hand pill-rolling type for which we will refer him to neurology as an outpatient. Hyperkalemia is improving today. Creatinine stable. Urine culture is pending. Urine output 2500 cc. awaiting therapy assessments for appropriate disposition planning. October 07, 2023. Urine output is over 2 L. Urine culture thus far negative to date.Continue ceftriaxone 1 g IV every 24 hours for UTI. Attempt Wang catheter removal today, patient complaining of diarrhea, check C. difficile. Voiding trial. October 08, 2023. Urine output 2500 cc. Creatinine has improved to 1.1. Urine culture negative to date. Will complete a presumptive 5-day course of ceftriaxone 1 g every 24 hours. Attempted to remove Wang catheter yesterday, however patient was unable to void urine therefore this has been replaced now. Hyperkalemia has resolved. Clinically euvolemic. Noted his pill-rolling tremors to be documented on cardiology visit 2 years ago. This is not a new development. Will refer to neurology as outpatient. He was evaluated by PT on 10/06/2023, showed reduced endurance, would likely benefit from skilled PT. Reviewed prior notes from Dr. Luna's office visits. Patient has a history of TCC of the bladder. He used to undergo regular cystoscopies but has not had one since Dr. Luna retired. He has had chronic issues with nocturia. Will need to be established with urology as outpatient. Previously had an outpatient referral to see Dr. Rodrigues in [place] but has not yet made it to see him. We would likely need to discharge him with a Wang catheter in place, to be followed up by urology as outpatient for cystoscopy to assess for recurrence. Renal ultrasound to evaluate for any hydronephrosis/bladder mass. Attestations 2 Medical Necessity Statement*: appropriate disposition planning Coding Level of Care Code Acute Code for Chg Fwd Moderate MDM includes number and complexity of problems actively addressed during encounter, amount and/or complexity of data reviewed/ordered and described risk of complication, morbidity or mortality of management as documented Diagnoses S/P TAVR (transcatheter aortic valve replacement) Z95.2 Acute exacerbation of CHF (congestive heart failure) I50.9 Acquired hypothyroidism E03.9 Hypothyroidism type: acquired Incomplete bladder emptying R33.9 Nocturia R35.1 Recurrent UTI N39.0 Urinary tract infection N39.0 Weakness R53.1 Falls R29.6 HALEY (acute kidney injury) N17.9 Hyperkalemia E87.5
[2023-10-08] MEDS: atorvastatin 40 mg Tablet PO (21:36)
[2023-10-09] VITALS (8 sets, daily range): BP systolic 112–154; BP diastolic 56–66; PULSE 66–85; RESP 17–18; TEMP 36.6–36.9; O2SAT 93–98
[2023-10-09] MEDS: cefTRIAXone 1,000 MG in sodium chloride 0.9% (plus) 50 ML 100 MG IV (02:40)
[2023-10-09] MEDS: levothyroxine 25 mcg Tablet PO (05:33)
[2023-10-09] MEDS: nystatin powder 15 gm Btl 1 APPLIC TOPICAL ×2 (09:19→18:28)
[2023-10-09] MEDS: amlodipine 10 mg Tablet PO (09:19)
[2023-10-09] MEDS: aspirin 81 mg EC Tablet PO (09:19)
[2023-10-09] MEDS: folic acid 1 mg Tablet PO (09:19)
[2023-10-09] MEDS: tamsulosin 0.4 mg Capsule PO (09:20)
--- NOTE | 2023-10-09 09:31 | PC.CHAP ---
Pastoral Care Encounter/Spiritual Assessment Type of Contact [] Declined director of tax services visit [] Patient/Family/Request visit [] Outpatient visit [] Follow-up visit [] Physician referral [] Code/Alert [x] Routine visit [] Staff referral [] Actively dying [] Patient sleeping [] Family support [] [] Out of room [] Palliative care [] [x] Receiving care in room [] Pre-surgical visit [] Trauma [] Long length of stay [] ICU visit [] Other: Relational/Emotional Strength [] Patient feels connected with others/family/visitors/staff [] Distress [] Loneliness/isolation [] Abandonment Spirituality of Patient [] Person of Yana [] Attends Bahai of their Yana [] Believes in Prayer [] Reads Bible or Anglican materials [] There are Spiritual issues to be addressed 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 Audit Clerk Interventions [x] Prayer [] Active listening [] Non-anxious presence [] Spiritual/emotional support [] Crisis/trauma care [] Spiritual counseling [] Bereavement support [] Provided bereavement packet [] Provided Bible/devotional materials [] Provided toy/stuffed animal, coloring book to patient or family member [] Provided Communion [] Anointing/[place] [] Salvation [] Completed spiritual assessment [] Other: Impact on Illness or Injury [] Angry [] Fearful [] Anxious [] Often cries [] Exhaustion [] Unable to work [] Unable to attend scientologist [] Unable to walk/stand [] Unable to read [] Unable to drive [] Unable to eat/drink [] Unable to sleep [] Unable to be with family [] Patient intubated [] Other: Summary Time spent with patient
[2023-10-09] MEDS: cyanocobalamin 1,000 mcg Tablet 1000 MCG PO (09:48)
--- NOTE | 2023-10-09 10:28 | PC.SOCIAL ---
IMM Updated Updated pt on IMM. No questions voiced. Provided pt a copy. Initialed, dated, & timed a copy & placed in chart.
--- NOTE | 2023-10-09 12:46 | P.PN_ITS ---
Subjective 2 Subjective: C. difficile negative Patient had 5-6 episodes of loose stools Given Imodium this morning Afebrile Patient is still lethargic and fatigued Awaiting alf placement Vitals/I&O/Wt Last Vital Signs Temp 98.3 F 10/09/23 08:00 Pulse 72 10/09/23 08:12 Resp 18 10/09/23 08:12 BP 112/61 10/09/23 08:00 Pulse Ox 93 10/09/23 08:12 O2 Del Method Room Air 10/09/23 08:12 10/08/23 10/09/23 10/09/23 22:59 06:59 14:59 Intake Total 480 / 1440 170 / 1610 360 / 360 Output Total 750 / 1950 1750 / 3700 Balance -270 / -510 -1580 / -2090 360 / 360 Weight last 48 hrs Weight 96.751 kg Weight 95.793 kg Physical Exam 2 Narrative: Patient is deconditioned Resting tremors Right greater than left Able to answer my question appropriate Hemodynamic stable Nonfocal neuroexam GCS 15 S1, S2 Urinary Catheter Management: Wang: Cath Placed During This Visit: yes, but has since been removed by the nurse Reason for Continuing Indwelling Catheter: Acute Urinary Retention or Obstruction Urinary Catheter Date of Insertion: 10/08/23 Urinary Catheter Time of Insertion: 05:12 Date Urinary Catheter Removed: 10/07/23 Time Urinary Catheter Discontinued: 21:15 Data 10/08/23 02:50 10/08/23 02:50 A&P Assessment and plan (1) S/P TAVR (transcatheter aortic valve replacement): (2) Acute exacerbation of CHF (congestive heart failure): (3) Hypothyroid: Qualifiers: Hypothyroidism type: acquired Qualified Code(s): E03.9 - Hypothyroidism, unspecified (4) Incomplete bladder emptying: (5) Nocturia: (6) Recurrent UTI: (7) Urinary tract infection: (8) Weakness: (9) Falls: (10) HALEY (acute kidney injury): (11) Hyperkalemia: Plan Generalized weakness and fatigue has not improved significantly With Wang catheter placement his creatinine and potassium improved Do not have labs from today Patient will need to stay until gets accepted by alf Continue ceftriaxone Ruled out C. difficile I will give him Imodium for diarrhea Patient failed voiding trial, patient will be discharged to alf with a Wang catheter with outpatient follow-up with the urologist, patient has history of transitional cell cancer of bladder He was doing self cath at home which he stopped recently Full code Cardiac diet Attestations 2 Medical Necessity Statement*: Continue medical management Diagnoses S/P TAVR (transcatheter aortic valve replacement) Z95.2 Acute exacerbation of CHF (congestive heart failure) I50.9 Acquired hypothyroidism E03.9 Hypothyroidism type: acquired Incomplete bladder emptying R33.9 Nocturia R35.1 Recurrent UTI N39.0 Urinary tract infection N39.0 Weakness R53.1 Falls R29.6 HALEY (acute kidney injury) N17.9 Hyperkalemia E87.5
[2023-10-09 13:09] LABS: Basophils % 0.5 %; Eosinophils # 0.1 10^3/uL (0.0-0.8); Eosinophils % 1.3 %; Hematocrit 40.5 % (37-53); Lymphocytes # 0.8 10^3/uL (0.8-4.8); Lymphocytes % 9.7 %; Mean Corpuscular HGB Conc 32.8 g/dL (30-55); Mean Corpuscular Hemoglobin 32.8 pg (27-33); Mean Corpuscular Volume 99.8 fl (82-101); Mean Platelet Volume 9.9 fL (7.4-10.4); Monocytes # 0.6 10^3/uL (0.2-0.9); Monocytes % 6.5 %; Neutrophils # 6.94 10^3/uL (1.8-7.7); Neutrophils % 81.4 %; Nucleated Red Blood Cells % 0 %; Platelet Count 197 10^3/cmm (157-399); Red Blood Count 4.06 10^6/uL (3.85-5.65); Red Cell Distribution Width 13.2 % (12.1-15.1); White Blood Count 8.52 10^3/uL (3.29-11.43)
[2023-10-09 13:28] LABS: Alanine Aminotransferase 12 U/L (0-41); Albumin Level 3.9 g/dL (3.5-5.2); Alkaline Phosphatase 91 U/L (40-130); Anion Gap 15.6 (5-19); Aspartate Amino Transferase 15 U/L (0-40); Blood Urea Nitrogen 24 mg/dL (8-23); Calcium 8.2 mg/dL (8.5-10.5); Carbon Dioxide 22 mmol/L (22-29); Chloride 106 mmol/L (98-107); Creatinine Clr Calc Pharmacy 59.8053; Globulin 2.7 g/dL (1.3-4.6); Glucose 217 mg/dL (65-115); Osmolality Calculated 299 mOsm/kg (285-295); Potassium 4.6 mmol/L (3.5-5.1); Sodium 139 mmol/L (136-145); Total Bilirubin 0.2 mg/dL (0.15-1.2); Total Protein 6.6 g/dL (6.6-8.7)
[2023-10-09] MEDS: acetaminophen 500 mg Tablet PO (18:30)
--- NOTE | 2023-10-09 19:20 | US_ITS ---
WS: [id number] RENAL ULTRASOUND HISTORY: h/o bladder cancer, currentlyy admitted with urinary retenti COMPARISON: None available. TECHNIQUE: 2-D and color Doppler imaging of the kidney submitted. Right kidney: 10.6 cm x 4.8 cm x 5.1 cm. Cortex: 1.2 cm Normal size kidney. No hydronephrosis. A few small acquired simple cortical cysts with the largest in the mid kidney measuring 1.2 x 0.9 x 1.0 cm. The small cysts are new since the study of 05/16/2009. Left kidney: 11.1 cm x 4.1 cm x 4.7 cm. Cortex: 1.4 cm Normal size kidney. No hydronephrosis. Small cortical cyst from the superior pole 1.1 x 1.1 x 1.0 cm. Aorta: Normal. Urinary Bladder: Not identified or visualized. Nondistended. US/US renal BI* [id number] IMPRESSION: 1. No hydronephrosis or solid renal mass. 2. Small bilateral cortical renal cyst.
[2023-10-09] MEDS: atorvastatin 40 mg Tablet PO (20:28)
[2023-10-10] VITALS (7 sets, daily range): BP systolic 114–169; BP diastolic 52–64; PULSE 57–72; RESP 16; TEMP 36.6–37.3; O2SAT 93–94
[2023-10-10] MEDS: acetaminophen 500 mg Tablet PO (03:11)
[2023-10-10] MEDS: levoFLOXacin 750 mg Tablet PO (06:28)
[2023-10-10] MEDS: levothyroxine 25 mcg Tablet PO (06:28)
[2023-10-10 06:54] LABS: Basophils % 0.5 %; Eosinophils # 0.2 10^3/uL (0.0-0.8); Eosinophils % 2.2 %; Hematocrit 36.2 % (37-53); Lymphocytes # 1.2 10^3/uL (0.8-4.8); Lymphocytes % 14.9 %; Mean Corpuscular HGB Conc 32.9 g/dL (30-55); Mean Corpuscular Hemoglobin 32.5 pg (27-33); Mean Corpuscular Volume 98.9 fl (82-101); Mean Platelet Volume 10.3 fL (7.4-10.4); Monocytes # 0.8 10^3/uL (0.2-0.9); Monocytes % 10.4 %; Neutrophils % 71.4 %; Nucleated Red Blood Cells % 0 %; Platelet Count 170 10^3/cmm (157-399); Red Blood Count 3.66 10^6/uL (3.85-5.65); Red Cell Distribution Width 13.1 % (12.1-15.1); White Blood Count 7.85 10^3/uL (3.29-11.43)
[2023-10-10 07:09] LABS: Anion Gap 16.5 (5-19); Blood Urea Nitrogen 24 mg/dL (8-23); Calcium 7.8 mg/dL (8.5-10.5); Carbon Dioxide 21 mmol/L (22-29); Chloride 108 mmol/L (98-107); Creatinine Clr Calc Pharmacy 59.5197; Glucose 116 mg/dL (65-115); Osmolality Calculated 297 mOsm/kg (285-295); Potassium 4.5 mmol/L (3.5-5.1); Sodium 141 mmol/L (136-145)
--- NOTE | 2023-10-10 09:09 | PC.CHAP ---
Pastoral Care Encounter/Spiritual Assessment Type of Contact [] Declined course developer visit [] Patient/Family/Request visit [] Outpatient visit [] Follow-up visit [] Physician referral [] Code/Alert [] Routine visit [] Staff referral [] Actively dying [] Patient sleeping [] Family support [] [] Out of room [] Palliative care [] [X] Receiving care in room [] Pre-surgical visit [] Trauma [] Long length of stay [] ICU visit [] Other: Relational/Emotional Strength [] Patient feels connected with others/family/visitors/staff [] Distress [] Loneliness/isolation [] Abandonment Spirituality of Patient [] Person of Yana [] Attends Yarsanism of their Yana [] Believes in Prayer [] Reads Bible or Rastafarian materials [] There are Spiritual issues to be addressed 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 Interventions [] Prayer [] Active listening [] Non-anxious presence [] Spiritual/emotional support [] Crisis/trauma care [] Spiritual counseling [] Bereavement support [] Provided bereavement packet [] Provided Bible/devotional materials [] Provided toy/stuffed animal, coloring book to patient or family member [] Provided Communion [] Anointing/[place] [] Salvation [] Completed spiritual assessment [] Other: Impact on Illness or Injury [] Angry [] Fearful [] Anxious [] Often cries [] Exhaustion [] Unable to work [] Unable to attend taoist [] Unable to walk/stand [] Unable to read [] Unable to drive [] Unable to eat/drink [] Unable to sleep [] Unable to be with family [] Patient intubated [] Other: Summary Time spent with patient
[2023-10-10] MEDS: amlodipine 10 mg Tablet PO (09:26)
[2023-10-10] MEDS: aspirin 81 mg EC Tablet PO (09:26)
[2023-10-10] MEDS: sennosides-docusate Tablet 2 TAB PO (09:27)
[2023-10-10] MEDS: folic acid 1 mg Tablet PO (09:27)
[2023-10-10] MEDS: cyanocobalamin 1,000 mcg Tablet 1000 MCG PO (09:27)
[2023-10-10] MEDS: tamsulosin 0.4 mg Capsule PO (09:27)
[2023-10-10] MEDS: nystatin powder 15 gm Btl 1 APPLIC TOPICAL (09:27)
[2023-10-10] MEDS: lactulose oral liq 20 gm/30 mL UDC 10 GM PO (09:33)
--- NOTE | 2023-10-10 11:15 | PM.DCS ---
Discharge Providers Date of Admission: 10/06/23 01:18 Date of Discharge: October 10, 2023 Attending Provider at Admission: Princess Morales MD Attending Provider at Discharge: Princess Morales MD Primary Care Provider: Charli Piña MD Diagnoses at Discharge Discharge Diagnosis (1) S/P TAVR (transcatheter aortic valve replacement): Status: Acute (2) Acute exacerbation of CHF (congestive heart failure): Status: Acute (3) Hypothyroid: Status: Acute Qualifiers: Hypothyroidism type: acquired Qualified Code(s): E03.9 - Hypothyroidism, unspecified (4) Incomplete bladder emptying: Status: Acute (5) Nocturia: Status: Acute (6) Recurrent UTI: Status: Acute (7) Urinary tract infection: Status: Acute (8) Weakness: Status: Acute (9) Falls: Status: Acute (10) HALEY (acute kidney injury): Status: Acute (11) Hyperkalemia: Status: Acute Reason for Visit Reason for Visit: Weakness Hospital Course Hospital Course 88-year-old male who lives with his present to the hospital generalized weakness and fatigue at the time of his admission to the hospital he was diagnosed with urinary obstruction causing HALEY and hyperkalemia, which resolved soon as we place Wang catheter, patient had pill-rolling tremor right hand which improved patient was put on B12 supplementation along folic acid, he experienced diarrhea C. difficile was ruled out he was kept on Levaquin for UTI, voiding trial failed patient will be discharged to SNF with a Wang catheter. Please note patient stopped doing self cath at home 3 to 4 months ago, he was following up with urology at [facility]. I will give him referral to see urology Patient is full code Physical Exam Narrative: Awake and alert Pleasant cooperative Currently on room air Hemodynamically stable GCS [address] Urinary Catheter Management: Wang: Cath Placed During This Visit: yes, but has since been removed by the nurse Reason for Continuing Indwelling Catheter: Acute Urinary Retention or Obstruction Urinary Catheter Date of Insertion: 10/08/23 Urinary Catheter Time of Insertion: 05:12 Date Urinary Catheter Removed: 10/07/23 Time Urinary Catheter Discontinued: 21:15 Discharge Data Studies Completed and Pending Completed Studies During Hospitalization Category Date Time Status CT head wo con* [id number] Stat Cat Scan 10/05/23 22:34 Completed XR chest 1V portable [id number] Stat Exams 10/05/23 22:33 Completed US renal BI* [id number] Routine Ultrasound 10/09/23 19:20 Completed Pending at discharge Category Date Time Status Blood Culture Stat Lab 10/05/23 22:48 Results SARS Covid-2 Antigen Stat Lab 10/10/23 11:11 Uncollected Radiology Impressions Chest X-Ray 10/05/23 22:33 IMPRESSION: 1. Cardiomegaly, mild pulmonary vascular congestion and mild interstitial edema. 2. Bibasilar atelectasis versus minimal infiltrate. 3. Sternotomy wires. Head CT 10/05/23 22:34 IMPRESSION: No acute intracranial abnormality. Renal Ultrasound 10/09/23 19:20 IMPRESSION: 1. No hydronephrosis or solid renal mass. 2. Small bilateral cortical renal cyst. Laboratory Results WBC 7.85 10^3/uL (3.29-11.43) 10/10/23 05:54 RBC 3.66 10^6/uL (3.85-5.65) L 10/10/23 05:54 Hgb 11.90 g/dL (11.27-16.99) 10/10/23 05:54 Hct 36.2 % (37-53) L 10/10/23 05:54 MCV 98.9 fl (82-101) 10/10/23 05:54 MCH 32.5 pg (27-33) 10/10/23 05:54 MCHC 32.9 g/dL (30-55) 10/10/23 05:54 RDW 13.1 % (12.1-15.1) 10/10/23 05:54 Plt Count 170 10^3/cmm (157-399) 10/10/23 05:54 MPV 10.3 fL (7.4-10.4) 10/10/23 05:54 Neut % (Auto) 71.4 % 10/10/23 05:54 Lymph % (Auto) 14.9 % 10/10/23 05:54 [place] % (Auto) 10.4 % 10/10/23 05:54 Eos % (Auto) 2.2 % 10/10/23 05:54 Baso % (Auto) 0.5 % 10/10/23 05:54 Neut # (Auto) 5.60 10^3/uL (1.8-7.7) 10/10/23 05:54 Lymph # (Auto) 1.2 10^3/uL (0.8-4.8) 10/10/23 05:54 [place] # (Auto) 0.8 10^3/uL (0.2-0.9) 10/10/23 05:54 Eos # (Auto) 0.2 10^3/uL (0.0-0.8) 10/10/23 05:54 Baso # (Auto) 0.0 10^3/uL (0.0-0.1) 10/10/23 05:54 Nucleated RBC % (auto) 0 % 10/10/23 05:54 Nucleated RBCs # 0.0 /100WBC 10/10/23 05:54 Sodium 141 mmol/L (136-145) 10/10/23 05:54 Potassium 4.5 mmol/L (3.5-5.1) 10/10/23 05:54 Chloride 108 mmol/L (98-107) H 10/10/23 05:54 Carbon Dioxide 21 mmol/L (22-29) L 10/10/23 05:54 Anion Gap 16.5 (5-19) 10/10/23 05:54 BUN 24 mg/dL (8-23) H 10/10/23 05:54 Creatinine 1.0 mg/dL (0.7-1.2) 10/10/23 05:54 GFR Calculation Not Reportable 10/10/23 05:54 Glucose 116 mg/dL (65-115) H 10/10/23 05:54 POC Glucose 110 mg/dL (70-110) 10/06/23 06:21 Calculated Osmolality 297 mOsm/kg (285-295) H 10/10/23 05:54 Lactic Acid 1.6 mmol/L (0.5-2.2) 10/05/23 22:45 Calcium 7.8 mg/dL (8.5-10.5) L 10/10/23 05:54 Phosphorus 3.5 mg/dL (2.5-4.5) 10/06/23 04:21 Magnesium 2.2 mg/dL (1.7-2.3) 10/06/23 04:21 Total Bilirubin 0.2 mg/dL (0.15-1.2) 10/09/23 12:36 AST 15 U/L (0-40) 10/09/23 12:36 ALT 12 U/L (0-41) 10/09/23 12:36 Alkaline Phosphatase 91 U/L (40-130) 10/09/23 12:36 Creatine Kinase 54 U/L (39-308) 10/05/23 22:45 Troponin T Baseline 33 ng/L (0-15) H 10/05/23 22:45 Troponin T 120 Minute 34.91 ng/L (0-15) H 10/06/23 00:30 Delta Troponin T 1.91 ABS# (0-10) 10/06/23 00:30 Troponin T Hi Sens 6Hr 40.91 ng/L (0-15) H 10/06/23 04:21 Troponin T Hi Sens 6Hr Delta 7.91 ng/L (0-12) 10/06/23 04:21 C-Reactive Protein 3.0 mg/L (0.0-4.9) 10/06/23 04:21 Total Protein 6.6 g/dL (6.6-8.7) 10/09/23 12:36 Albumin 3.9 g/dL (3.5-5.2) 10/09/23 12:36 Globulin 2.7 g/dL (1.3-4.6) 10/09/23 12:36 Vitamin B12 223 pg/mL (232-1245) L 10/06/23 04:21 TSH 1.59 uIU/mL (0.27-4.20) 10/06/23 04:21 Urine Color Yellow (Yellow) 10/05/23 23:12 Urine Appearance Slightly cloudy (CLEAR) 10/05/23 23:12 Urine pH 5 (5-7) 10/05/23 23:12 Ur Specific [place] 1.015 (1.005-1.030) 10/05/23 23:12 Urine Protein Trace (Negative) 10/05/23 23:12 Urine Glucose (UA) Norm (Normal) 10/05/23 23:12 Urine Ketones 1+ (Negative) H 10/05/23 23:12 Urine Blood 3+ (Negative) H 10/05/23 23:12 Urine Nitrate Negative (Negative) 10/05/23 23:12 Urine Bilirubin Neg (Negative) 10/05/23 23:12 Urine Urobilinogen Neg mg/dL (Negative) 10/05/23 23:12 Ur Leukocyte Esterase Trace (Negative) H 10/05/23 23:12 Urine RBC 15-25 /hpf (0-2) H 10/05/23 23:12 Urine WBC 10-15 /hpf (0-5) H 10/05/23 23:12 Ur Squamous Epith Cells 10-15 /hpf (0-5) H 10/05/23 23:12 Ur Transition Epith Cell 5-10 /hpf 10/05/23 23:12 Amorphous Sediment 1+ /hpf 10/05/23 23:12 Urine Bacteria 1+ /hpf (NONE) H 10/05/23 23:12 Urine Mucus 2+ /hpf 10/05/23 23:12 C. difficile (PCR) Negative (Negative) 10/08/23 10:05 Vitals Last Vital Signs Temp 97.9 F 10/10/23 07:27 Pulse 66 10/10/23 08:43 Resp 16 10/10/23 08:43 BP 146/61 10/10/23 07:27 Pulse Ox 94 10/10/23 08:43 O2 Del Method Room Air 10/10/23 08:43 Discharge Plan Discharge Patient Disposition: Home Condition: Stable Prescriptions: New nystatin [Nystop] 100,000 unit/gram Powder 1 applic topical BID Qty: 15 0RF cyanocobalamin (vitamin B-12) [Vitamin B-12] 1,000 mcg Tablet 1,000 mcg PO DAILY Qty: 90 0RF loperamide 2 mg Capsule 2 mg PO BID PRN (Reason: Diarrhea) Qty: 4 0RF tamsulosin 0.4 mg Capsule 0.4 mg PO DAILY Qty: 90 2RF folic acid 1 mg Tablet 1 mg PO DAILY Qty: 90 0RF levofloxacin 750 mg Tablet 750 mg PO DAILY@0600 Qty: 5 0RF Continued acetaminophen [Tylenol] 325 mg tablet 500 mg PO QID PRN (Reason: Pain) aspirin 81 mg tablet,delayed release (DR/EC) 81 mg PO DAILY ascorbic acid (vitamin C) 500 mg capsule 500 mg PO BID nitroglycerin 0.4 mg tablet, sublingual 0.4 mg sublingual Q5M PRN (Reason: chest pain) amlodipine 10 mg tablet 10 mg PO DAILY Qty: 90 3RF levothyroxine 25 mcg tablet See Rx Instructions .ROUTE .COMPLEX Qty: 90 3RF Dose Instruction: TAKE 1 TABLET DAILY Rx Instructions: TAKE 1 TABLET DAILY atorvastatin 40 mg tablet See Rx Instructions .ROUTE .COMPLEX Qty: 90 3RF Dose Instruction: TAKE 1 TABLET DAILY Rx Instructions: TAKE 1 TABLET DAILY lisinopril 40 mg tablet See Rx Instructions .ROUTE .COMPLEX Qty: 90 3RF Dose Instruction: TAKE 1 TABLET DAILY FOR HYPERTENSION Rx Instructions: TAKE 1 TABLET DAILY FOR HYPERTENSION methenamine hippurate 1 gram tablet See Rx Instructions .ROUTE .COMPLEX Qty: 180 3RF Dose Instruction: TAKE 1 TABLET TWICE A DAY WITH 1000 MG VITAMIN C Rx Instructions: TAKE 1 TABLET TWICE A DAY WITH 1000 MG VITAMIN C Discharge Orders: Discharge Order (Routine); Ordered 10/10/23 Ordered By: Princess Morales Referrals: Walter Meade MD [Referring] - 2 weeks (bph) Charli Piña MD [Primary Care Provider] - (We have notified your physician's clinic of the need for a follow-up appointment to be scheduled. If you have not heard from them within the next 2 business days, please call them directly. ) Discharge Diet: Cardiac Discharge Activity: As per PT/OT instructions Patient Instructions: Opioid Safety Discharge Attestations Time Spent in Discharge Care*: greater than 30 min Quality Metrics Clinical Quality Measures [ No reported AMI, CVA or VTE this stay] Coding Level of Care Code Acute Code for Chg Fwd Diagnoses S/P TAVR (transcatheter aortic valve replacement) Z95.2 Acute exacerbation of CHF (congestive heart failure) I50.9 Acquired hypothyroidism E03.9 Hypothyroidism type: acquired Incomplete bladder emptying R33.9 Nocturia R35.1 Recurrent UTI N39.0 Urinary tract infection N39.0 Weakness R53.1 Falls R29.6 HALEY (acute kidney injury) N17.9 Hyperkalemia E87.5
[2023-10-10 13:02] LABS: SARS Covid-2 Antigen negative (Negative)
--- NOTE | 2023-10-10 13:13 | PC.NURSE ---
Called report to Haleigh Cárdenas RN at [facility]
== END 2023-10-10 14:10 | disposition skilled nursing facility (03) | DRG 682 ==
LOC: ER 10-06 01:15 → MEDSURG 10-06 01:18
PROVIDERS: Student in an Organized Health Care Education/Training Program; Admitting Provider Internal Medicine; Emergency Provider Emergency Medicine; PCP Family Medicine; Visit Provider Internal Medicine
DX: N17.9 Acute kidney failure, unspecified (principal); I50.33 Acute on chronic diastolic (congestive) heart failure; N39.0 Urinary tract infection, site not specified; E87.5 Hyperkalemia; R19.7 Diarrhea, unspecified; Z96.641 Presence of right artificial hip joint; Z95.3 Presence of xenogenic heart valve; Z95.5 Presence of coronary angioplasty implant and graft; I25.10 Atherosclerotic heart disease of native coronary artery without angina pectoris; Z87.440 Personal history of urinary (tract) infections; M10.9 Gout, unspecified; Z87.891 Personal history of nicotine dependence; R29.6 Repeated falls; Z91.81 History of falling; R53.81 Other malaise; G25.2 Other specified forms of tremor; I34.1 Nonrheumatic mitral (valve) prolapse; E03.9 Hypothyroidism, unspecified; N40.1 Benign prostatic hyperplasia with lower urinary tract symptoms; R39.14 Feeling of incomplete bladder emptying; R35.1 Nocturia; G47.00 Insomnia, unspecified
CPT/HCPCS: 36415; 36416; 51702; 51798; 70450; 71045; 76770; 80048; 80053; 81001; 82550; 82607; 82962; 83605; 83735; 84100; 84443; 84484; 85025; 86140; 87040; 87426; 87493; 93005; 96374; 97110; 97116; 97161; 97530; 99285; J0612; J0696; J1815; J1940; J7799

== ENCOUNTER → 2024-01-24 10:52 | Outpatient (BNVA) | payer MEDICARE, OTHER, SELFPAY | PROVIDERS: PCP Family Medicine; Visit Provider Internal Medicine Cardiovascular Disease | DX: R07.9 Chest pain, unspecified (principal); I25.10 Atherosclerotic heart disease of native coronary artery without angina pectoris; R53.1 Weakness; Z95.2 Presence of prosthetic heart valve; E78.5 Hyperlipidemia, unspecified; I10 Essential (primary) hypertension; I49.9 Cardiac arrhythmia, unspecified; Z87.891 Personal history of nicotine dependence; R00.1 Bradycardia, unspecified; I44.7 Left bundle-branch block, unspecified | CPT/HCPCS: 93005; 99214 ==

== ENCOUNTER 2024-02-15 13:13 | Outpatient (CLI) | payer MEDICARE, OTHER, SELFPAY ==
--- NOTE | 2024-02-15 13:30 | USCV_ITS ---
Ricardo Nelson Age: 88 Gender: M : 1935 Exam Date: 02/15/2024 13:39 Ordering Phys: Omari Marquis MD ([email or web address]) Technologist: JOSÉ Exam Location: [facility] [place] Indication: RECHECKOF AV REPLACEMENT BP: / HR: 78 Rhythm: Sinus Technical Quality: Adequate MEASUREMENTS (Male / Female) Normal Values 2D ECHO LV Diastolic Diameter PLAX 5.2 cm 4.2 - 5.9 / 3.9 - 5.3 cm LV Systolic Diameter PLAX 4.2 cm IVS Diastolic Thickness 1.2 cm 0.6 - 1.0 / 0.6 - 0.9 cm IVS Systolic Thickness 1.5 cm LVPW Diastolic Thickness 1.5 cm 0.6 - 1.0 / 0.6 - 0.9 cm LVPW Systolic Thickness 1.9 cm LVOT Diameter 2.0 cm LV Ejection Fraction 2D Teich 38.0 % LV Ejection Fraction MOD 4C 69.5 % LV Ejection Fraction MOD 2C 59.9 % LV Ejection Fraction 2C AL 69.1 % LA Diameter 3.4 cm LA Sys Volume AL 42.5 cm cubed LA Sys Volume Index AL 20.7 cm cubed/m squared Aorta at Sinotubular Diameter 2.3 cm M-MODE LA Ao Ratio MM 1.9 AV Cusp Separation MM 1.4 cm DOPPLER AV Peak Velocity 190.1 cm/s LVOT Peak Velocity 82.0 cm/s AV Area Cont Eq vti 1.4 cm squared AV Area Cont Eq pk 1.4 cm squared MV Area PHT 2.3 cm squared Mitral E to A Ratio 1.0 TV Peak Velocity 203.5 cm/s TR Peak Velocity 281.0 cm/s TR Peak Gradient 31.6 mmHg TR Mean Velocity 253.0 cm/s TR Mean Gradient 26.2 mmHg TR Velocity Time Integral 78.6 cm TV Peak E Velocity 71.0 cm/s Right Atrial Pressure 3.0 mmHg Pulmonary Artery Systolic Pressu 34.6 mmHg PV Peak Velocity 154.0 cm/s FINDINGS Left Ventricle Normal LV size and ejection fraction. Mild concentric left trickle hypertrophy. Right Ventricle Possibly normal RV size ejection fraction Right Atrium The right atrium is normal in size. Left Atrium The left atrium is normal in size. Mitral Valve No gross abnormalities noted Aortic Valve The bioprosthetic valve the aortic position appears to be well- seated. Peak velocity across the valve is 1.9 m/s. The valve morphology could not be delineated well Tricuspid Valve No gross abnormalities noted Pulmonic Valve Pulmonic valve not well visualized. Pericardium No pericardial effusion. Aorta Normal ascending aorta dimension. IVC Inferior vena cava not visualized. CONCLUSIONS Normal LV size and ejection fraction. Mild concentric left trickle hypertrophy. The bioprosthetic valve the aortic position appears to be well- seated. Peak velocity across the valve is 1.9 m/s. The valve morphology could not be delineated well. Possibly normal chamber sizes. Technically difficult study because of poor ultrasonic windowThere is no pericardial effusion. Dr Omari Marquis MD FACC (Electronically Signed) Final Date: 22 February 2024 10:44 S
== END 2024-02-15 13:14 | disposition home or self-care (01) ==
LOC: RAD 13:15
PROVIDERS: PCP Family Medicine; Visit Provider Internal Medicine Cardiovascular Disease
DX: R06.09 Other forms of dyspnea (principal); Z95.2 Presence of prosthetic heart valve
CPT/HCPCS: 93306

== ENCOUNTER → 2024-07-30 15:48 | Outpatient (BNVA) | payer MEDICARE, OTHER, SELFPAY | PROVIDERS: PCP Family Medicine; Visit Provider Internal Medicine Cardiovascular Disease | DX: R53.83 Other fatigue (principal); I25.10 Atherosclerotic heart disease of native coronary artery without angina pectoris; E78.5 Hyperlipidemia, unspecified; I13.0 Hypertensive heart and chronic kidney disease with heart failure and stage 1 through stage 4 chronic kidney disease, or unspecified chronic kidney disease; N18.9 Chronic kidney disease, unspecified; I50.9 Heart failure, unspecified; Z79.82 Long term (current) use of aspirin; Z95.2 Presence of prosthetic heart valve; Z95.1 Presence of aortocoronary bypass graft; Z95.5 Presence of coronary angioplasty implant and graft; Z87.891 Personal history of nicotine dependence; R07.9 Chest pain, unspecified; R06.02 Shortness of breath | CPT/HCPCS: 36415; 80048; 84443; 85025; 93005; 99214 ==

== ENCOUNTER 2025-01-08 14:49 | Inpatient (IN) | payer MEDICARE, OTHER, SELFPAY ==
[2025-01-08] VITALS (11 sets, daily range): BP systolic 97–127; BP diastolic 41–65; PULSE 83–86; RESP 16–22; TEMP 36.9–37.1; O2SAT 92–96; BMI 28.7; BMI 29.7
--- NOTE | 2025-01-08 14:50 | XR_ITS ---
WS: [id number] XR chest 1V portable [id number] REASON FOR EXAM: dyspnea/cough FINDINGS: Chest is unchanged compared to 10/05/2023. Sternal sutures Endovascular stent prosthetic aortic valve. Cardiomegaly with moderate central pulmonary venous congestion. No definite pulmonary edema. No other acute pulmonary parenchymal or pleural abnormality. XR/XR chest 1V portable [id number] IMPRESSION: Stable chest with cardiomegaly and pulmonary venous hypertension.
--- NOTE | 2025-01-08 14:50 | ECG_ITS ---
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 Measurements Intervals [place] Rate: 80 P: 72 CT: 167 QRS: 104 QRSD: 149 T: 15 QT: 421 QTc: 488 Interpretive Statements SINUS RHYTHM WITH OCCASIONAL SUPRAVENTRICULAR PREMATURE COMPLEXES RIGHT AXIS DEVIATION [QRS AXIS > 100] INTRAVENTRICULAR CONDUCTION DELAY [130+ ms QRS DURATION] Compared to ECG 07/30/2024 15:59:37 Right-axis deviation now present Intraventricular conduction delay now present Sinus bradycardia no longer present Left bundle-branch block no longer present Electronically Signed On 01-08-2025 16:45:06 CDT by Didier Ahuja M.D. [id number] [id number]
[2025-01-08 15:05] LABS: Glucose Urine UA Negative (Normal); Nitrate Urine Negative (Negative); Specific Gravity, Urine 1.013 (1.005-1.030)
[2025-01-08 15:08] LABS: Add Urine Microscopic? YES
[2025-01-08 15:21] LABS: Hematocrit 36.9 % (37-53); Hemoglobin 11.80 g/dL (11.27-16.99); Mean Corpuscular HGB Conc 32.0 g/dL (30-55); Mean Corpuscular Hemoglobin 30.5 pg (27-33); Mean Corpuscular Volume 95.3 fl (82-101); Nucleated Red Blood Cells % 0 %; Platelet Count 198 10^3/cmm (157-399); Red Blood Count 3.87 10^6/uL (3.85-5.65); White Blood Count 3.91 10^3/uL (3.29-11.43)
[2025-01-08 15:33] LABS: Alanine Aminotransferase 10 U/L (0-41); Albumin Level 4.1 g/dL (3.5-5.2); Alkaline Phosphatase 133 U/L (40-130); Anion Gap 20.6 (5-19); Aspartate Amino Transferase 17 U/L (0-40); Blood Urea Nitrogen 35 mg/dL (8-23); Calcium 7.8 mg/dL (8.5-10.5); Carbon Dioxide 19 mmol/L (22-29); Chloride 102 mmol/L (98-107); Creatinine Clr Calc Pharmacy 26.4059; Globulin 2.6 g/dL (1.3-4.6); Glucose 99 mg/dL (65-115); Osmolality Calculated 290 mOsm/kg (285-295); Potassium 5.6 mmol/L (3.5-5.1); Sodium 136 mmol/L (136-145); Total Protein 6.7 g/dL (6.6-8.7); Troponin(5th) Baseline 89 ng/L (0-15)
[2025-01-08 15:36] LABS: UA Slide Review UA Slide Review Perf
--- OUTSIDE RECORDS SUMMARY | 2025-01-08 15:44 | XMS_ITS | Clinical Summary ---
Author Organization [facility] Based Address [address] [place] [address] Care Team Providers Care C D Still Operator Name Role Phone Charli Piña MD Primary Care Provider Allergies No known active allergies Medications acetaminophen (TYLENOL) 500 mg tablet Take 500 mg by mouth every 6 hours as needed. Active ascorbic acid, vitamin C, (VITAMIN C) 500 mg tablet Take 500 mg by mouth daily. Active aspirin (ECOTRIN EC) 81 mg Tablet, Delayed Release (E.C.) Take 81 mg by mouth daily. Active atorvastatin (LIPITOR) 40 mg tablet Take 40 mg by mouth daily. Active levothyroxine 25 mcg tablet Take 25 mcg by mouth daily in the morning. Active lisinopriL (PRINIVIL) 40 mg tablet Take 40 mg by mouth daily. Active methenamine hippurate (HIPREX) 1 gram Tablet Take 1 Gram by mouth 2 times daily. Take with Vit C Active nitroglycerin (NITROSTAT) 0.4 mg Tablet, Sublingual Place 1 Tablet (0.4 mg) under tongue every 5 minutes as needed for Chest Pain. 25 Tablet 3 12/19/2020 Active amLODIPine (NORVASC) 10 mg tablet 01/03/2022 Active Active Problems Problem Noted Date Diagnosed Date S/P TAVR (transcatheter aortic valve replacement ) 01/21/2021 Overview (01/21/2021): 01/20/21: 29 mm Medtronic Pro Plus Chronic diastolic congestive heart failure, NYHA class 3 01/20/2021 Overview (01/20/2021): NYHA class III symptoms Pulmonary hypertension 01/20/2021 Primary hypertension 01/20/2021 DJD (degenerative joint disease) 01/20/2021 Physical deconditioning 01/20/2021 ASHD (arteriosclerotic heart disease) 12/19/2020 Severe aortic stenosis 12/19/2020 Dyslipidemia 12/19/2020 History of sinus bradycardia 12/19/2020 Dyspnea 12/19/2020 Social History Tobacco Use Types Packs/Day Years Used Date Smoking Tobacco: Former Smokeless Tobacco: Never Tobacco Cessation:Counseling Given: Not Answered Sex and Gender Information Value Date Recorded Sex Assigned at Not on file Legal Sex Male 2:00 PM CDT Gender Identity Not on file Sexual Orientation Not on file Last Filed Vital Signs Vital Sign Reading Time Taken Comments Blood Pressure 120/68 02/02/2022 2:36 PM WATCH ASSEMBLER Pulse 60 02/02/2022 2:36 PM WATCH ASSEMBLER Temperature 37.2 C (98.9 F) 01/21/2021 11:45 AM CDT Respiratory Rate 18 01/21/2021 11:45 AM CDT Oxygen Saturation 96% 01/21/2021 11:45 AM CDT Inhaled Oxygen Concentration - - Weight 97.5 kg (215 lb) 02/02/2022 2:36 PM WATCH ASSEMBLER Height 172.7 cm (5' 8 ) 02/02/2022 2:36 PM WATCH ASSEMBLER Body Mass Index 32.69 02/02/2022 2:36 PM WATCH ASSEMBLER Plan of Treatment Health Maintenance Due Date Last Done Comments DTAP/TDAP/TD VACCINES (1 - Tdap) 1956 PNEUMOCOCCAL VACCINE 50+ YEARS (1 of 2 - PCV) 04/30/18 57 ZOSTER VACCINE (1 of 2) 1987 RSV VACCINE (60+ or ) (1 - 1-dose 75+ series) 2012 INFLUENZA VACCINE (#1) 2024 Medical Devices Implanted Type Area Behavior Clinician Device Identifier Shelf Expiration Date Model / Serial / Lot Closure Perclose Proglide 98607 - [id number] Implanted:Qty: 1 on 12/18/2020 at [facility] Closure Device Right: Groin CELIS- VASC DEVICE 09/23/2022 [id number] / / [id number] Closure Perclose Proglide 16624 - [id number] Implanted:Qty: 1 on 01/20/2021 at [facility] Closure Device Right: Groin CELIS- VASC DEVICE 10/24/2022 [id number] / / [id number] Closure Perclose Proglide 32949 - [id number] Implanted:Qty: 1 on 01/20/2021 at [facility] Closure Device Right: Groin CELIS- VASC DEVICE 10/24/2022 [id number] / / [id number] Closure Perclose Proglide 52733 - [id number] Implanted:Qty: 1 on 01/20/2021 at [facility] Closure Device Right: Groin CELIS- VASC DEVICE 08/24/2022 [id number] / / [id number] Stent Synergy Xd 4.0x16mm Monorail [id number] - [id number] Implanted:Qty: 1 on 12/18/2020 by Bart Mcduffie MD at [facility] Stent Left: Coronary [employer] 06/30/2022 [id number] / / [id number] Stent Synergy Xd 4.0x32mm Monorail [id number] - [id number] Implanted:Qty: 1 on 12/18/2020 by Bart Mcduffie MD at [facility] Stent Right: Coronary [employer] 05/26/2022 [id number] / / [id number] Vlv 29mm Evproplus-29us - [id number] Implanted:Qty: 1 on 01/20/2021 at [facility] Valve N/A: Heart [employer] 06/17/2022 EVPROPLUS -29US / [id number] / Insurance MEDICARE PART A AND B [facility] OPTIONS PPO [id number] [facility] Address: [facility] [id number] [place] [address] Advance Directives For more information, please contact: [phone] * Full Code (Latest Code Status on File) Date Activated Date Inactivated Comments 01/20/2021 7:05 AM 01/21/2021 6:01 PM * Full Code Date Activated Date Inactivated Comments 12/18/2020 10:05 AM 12/19/2020 2:52 PM Care Teams C D Still Operator Relationship Specialty Start Date End Date Charli Piña MD [address] [place] [address] PCP - General Family Practice 12/14/20
[2025-01-08 15:55] LABS: Slide Review Slide Review Perform
--- NOTE | 2025-01-08 16:45 | ECG_ITS ---
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 Measurements Intervals [place] Rate: 81 P: 73 NE: 169 QRS: 94 QRSD: 154 T: -36 QT: 436 QTc: 509 Interpretive Statements SINUS RHYTHM WITH FREQUENT VENTRICULAR PREMATURE COMPLEXES BORDERLINE RIGHT AXIS DEVIATION [QRS AXIS > 90] INTRAVENTRICULAR CONDUCTION DELAY [130+ ms QRS DURATION] Compared to ECG 01/08/2025 14:55:16 Ventricular premature complex(es) now present Electronically Signed On 01-14-2025 19:52:43 CDT by Omari Marquis M.D. [id number] [id number]
[2025-01-08 17:30] LABS: Troponin 5 2HR 92.40 ng/L (0-15); Troponin 5 2HR Delta 3.40 ABS# (0-10)
--- NOTE | 2025-01-08 17:44 | W.ED.DIZZY ---
HPI - Dizziness General: Chief Complaint: Dizziness Stated Complaint: Dizziness/ Neausa Time Seen by Provider: 01/08/25 14:49 History of Present Illness: HPI Narrative: 89-year-old male presents emergency room with dizziness tingling bilaterally in his hands. He has a chronic Wang recently was treated for cystitis he has completed the antibiotics we do not have a copy of the culture from that. He took his last antibiotic yesterday he is just generally not feeling well at this time. He denies abdominal pain no shortness of breath cough no chest pain Associated symptoms: Reports malaise; Denies chest pain or chills Related Data Home Medications ?Medication ?Instructions ?Recorded ?Confirmed aspirin 81 mg tablet,delayed 81 mg PO DAILY 08/20/19 01/08/25 release acetaminophen 325 mg tablet 650 mg PO QID PRN Pain 07/21/20 01/08/25 (Tylenol) nitroglycerin 0.4 mg sublingual 0.4 mg sublingual Q5M PRN chest 01/28/21 01/08/25 tablet pain bisacodyl 10 mg rectal suppository 10 mg NE DAILY PRN constipation 01/24/24 01/08/25 (Dulcolax (bisacodyl)) magnesium hydroxide 400 mg/5 mL 30 ml PO BID PRN constipation 01/24/24 01/08/25 oral suspension (Milk of Magnesia) sertraline 50 mg tablet (Zoloft) 50 mg PO DAILY 01/24/24 01/08/25 calcium carbonate 1,000 mg PO DAILY indigestion 01/08/25 01/08/25 dextromethorphan-guaifenesin 10 10 ml PO Q4H PRN Cough 01/08/25 01/08/25 mg-100 mg/5 mL oral liquid (Marcela-Tussin DM) ondansetron HCl 4 mg tablet 4 mg PO Q4H PRN Nausea And Vomiting 01/08/25 01/08/25 polyethylene glycol 3350 17 17 g PO DAILY PRN constipation 01/08/25 01/08/25 gram/dose oral powder (Miralax) sodium phosphates 19 gram-7 118 ml NE DAILY PRN Constipation 01/08/25 01/08/25 gram/118 mL enema (Fleet Enema) Previous Rx's ?Medication ?Instructions ?Recorded levothyroxine 25 mcg tablet See Rx Instructions .Route 03/30/23 .COMPLEX #90 tabs lisinopril 40 mg tablet 40 mg PO DAILY #90 tabs 07/30/24 Allergies Allergy/AdvReac Type Severity Reaction Status Date / Time No Known Allergies Allergy Verified 07/30/24 15:21 Review of Systems Const: Reports: fatigue and malaise; Denies: fever(s) or chills Card: Denies: chest pain Resp: Denies: dyspnea GI: Denies: abdominal pain : Denies: dysuria, urinary frequency or urinary urgency Musc: Denies: neck pain or back pain Skin/Breast: Denies: rash PFSH ED PFSH: Medical History Hyperkalemia HALEY (acute kidney injury) Acute exacerbation of CHF (congestive heart failure) Hx of goiter 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 Falls Weakness Urinary tract infection Hypothyroid Nocturia Atherosclerosis of coronary artery Incomplete bladder emptying Hx of carpal tunnel syndrome History of bradycardia Mitral valve prolapse Recurrent UTI History of paroxysmal supraventricular tachycardia Gouty arthritis Goiter Bladder cancer Surgical History History of bladder surgery History of PTCA Hx of CABG H/O heart artery stent 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 S/P TURP (status post transurethral resection of prostate) Family History Father , at age 69 Suicide Mother , at age 89 CAD (coronary artery disease) Diabetes Sister Diabetes Lung disease Brother Diabetes Stroke Denies family history of Clotting disorder Dementia Chronic kidney disease (CKD) Anesthesia complication Bleeding disorder Cancer Social History Smoking and tobacco/nicotine status: tobacco/nicotine user, details unknown Alcohol intake: never Marital status: Current occupational status: retired Physical Exam Const: GENERAL APPEARANCE: cooperative ORIENTATION/CONSCIOUSNESS: Yes awake, Yes oriented to person, Yes oriented to place and Yes oriented to time HENMT: COMMON NORMALS: normocephalic, atraumatic and hearing grossly normal bilaterally HEAD & SCALP: normocephalic and atraumatic Resp: COMMON NORMALS: normal respiratory effort, No retractions, No use of accessory muscles and clear to auscultation bilaterally AUSCULTATION: clear to auscultation bilaterally Cardio: COMMON NORMALS: regular rate, regular rhythm and No murmurs present (Cardio) RATE: regular rate RHYTHM: regular rhythm GI: COMMON NORMALS: Soft to palpation and No hepatosplenomegaly present AUSCULTATION: Yes normoactive bowel sounds PALPATION: Yes Soft to palpation, No Tenderness to palpation present (GI), No Guarding due to palpation present (GI) and Yes No hepatosplenomegaly present Extremity: COMMON NORMALS: normal to inspection, capillary refill normal, no clubbing, cyanosis or edema, no calf tenderness and no pedal edema Neuro: SENSORIUM/ORIENTATION: Yes oriented to person, Yes oriented to place and Yes oriented to time Skin: COMMON NORMALS: no rashes or lesions noted GENERAL SKIN EXAM: no rashes or lesions noted Course Vital Signs: Vital signs: Vital Signs Temperature 98.4 F 01/08/25 14:50 Pulse Rate 86 01/08/25 17:07 Respiratory Rate 16 01/08/25 14:50 Blood Pressure 116/65 01/08/25 17:07 Pulse Oximetry 92 01/08/25 17:07 Oxygen Delivery Me thod Room Air 01/08/25 17:07 MDM - Dizziness Medical Decision Making Patient has acute kidney injury with hyperkalemia. He was given Kayexalate sodium bicarb and albuterol and calcium gluconate. Also given IV fluids. Discussed Dr. Sharma orders written Medical Records I reviewed the patient's medical records. Lab Data I reviewed the patient's lab results. 01/08/25 14:57 01/08/25 14:57 Radiology Impressions Chest X-Ray 01/08/25 14:50 IMPRESSION: Stable chest with cardiomegaly and pulmonary venous hypertension. Laboratory Results WBC 3.91 10^3/uL (3.29-11.43) 01/08/25 14:57 RBC 3.87 10^6/uL (3.85-5.65) 01/08/25 14:57 Hgb 11.80 g/dL (11.27-16.99) 01/08/25 14:57 Hct 36.9 % (37-53) L 01/08/25 14:57 MCV 95.3 fl (82-101) 01/08/25 14:57 MCH 30.5 pg (27-33) 01/08/25 14:57 MCHC 32.0 g/dL (30-55) 01/08/25 14:57 RDW 14.8 % (12.1-15.1) 01/08/25 14:57 Plt Count 198 10^3/cmm (157-399) 01/08/25 14:57 MPV 10.2 fL (7.4-10.4) 01/08/25 14:57 Neut % (Auto) 93.3 % 01/08/25 14:57 Lymph % (Auto) 3.8 % 01/08/25 14:57 [place] % (Auto) 0.3 % 01/08/25 14:57 Eos % (Auto) 1.5 % 01/08/25 14:57 Baso % (Auto) 0.3 % 01/08/25 14:57 Neut # (Auto) 3.65 10^3/uL (1.8-7.7) 01/08/25 14:57 Lymph # (Auto) 0.2 10^3/uL (0.8-4.8) L 01/08/25 14:57 [place] # (Auto) 0.0 10^3/uL (0.2-0.9) L 01/08/25 14:57 Eos # (Auto) 0.1 10^3/uL (0.0-0.8) 01/08/25 14:57 Baso # (Auto) 0.0 10^3/uL (0.0-0.1) 01/08/25 14:57 Nucleated RBC % (auto) 0 % 01/08/25 14:57 Nucleated RBCs # 0.0 /100WBC 01/08/25 14:57 Sodium 136 mmol/L (136-145) 01/08/25 14:57 Potassium 5.6 mmol/L (3.5-5.1) H 01/08/25 14:57 Chloride 102 mmol/L (98-107) 01/08/25 14:57 Carbon Dioxide 19 mmol/L (22-29) L 01/08/25 14:57 Anion Gap 20.6 (5-19) H 01/08/25 14:57 BUN 35 mg/dL (8-23) H 01/08/25 14:57 Creatinine 2.1 mg/dL (0.7-1.2) H 01/08/25 14:57 GFR Calculation Not Reportable 01/08/25 14:57 Glucose 99 mg/dL (65-115) 01/08/25 14:57 Calculated Osmolality 290 mOsm/kg (285-295) 01/08/25 14:57 Calcium 7.8 mg/dL (8.5-10.5) L 01/08/25 14:57 Total Bilirubin 0.3 mg/dL (0.15-1.2) 01/08/25 14:57 AST 17 U/L (0-40) 01/08/25 14:57 ALT 10 U/L (0-41) 01/08/25 14:57 Alkaline Phosphatase 133 U/L (40-130) H 01/08/25 14:57 Troponin T Baseline 89 ng/L (0-15) H 01/08/25 14:57 Troponin T 120 Minute 92.40 ng/L (0-15) H 01/08/25 16:41 Delta Troponin T 3.40 ABS# (0-10) 01/08/25 16:41 Total Protein 6.7 g/dL (6.6-8.7) 01/08/25 14:57 Albumin 4.1 g/dL (3.5-5.2) 01/08/25 14:57 Globulin 2.6 g/dL (1.3-4.6) 01/08/25 14:57 Urine Color Ages [place] (Yellow) A 01/08/25 14:58 Urine Appearance Turbid (CLEAR) A 01/08/25 14:58 Urine pH 7.0 (5-7) 01/08/25 14:58 Ur Specific [place] 1.013 (1.005-1.030) 01/08/25 14: Urine Protein 1+ (Negative) A 01/08/25 14:58 Urine Glucose (UA) Negative (Normal) 01/08/25 14:58 Urine Ketones Negative (Negative) 01/08/25 14:58 Urine Blood 3+ (Negative) A 01/08/25 14:58 Urine Nitrate Negative (Negative) 01/08/25 14:58 Urine Bilirubin Negative (Negative) 01/08/25 14:58 Urine Urobilinogen 0.2 mg/dL (Negative) 01/08/25 14:58 Ur Leukocyte Esterase 3+ (Negative) A 01/08/25 14:58 Urine RBC >100 /hpf (0-2) H 01/08/25 14:58 Urine WBC >100 /hpf (0-5) H 01/08/25 14:58 Ur Squamous Epith Cells 0-5 /hpf (0-5) 01/08/25 14:58 Ur Transition Epith Cell 0-4 /hpf 01/08/25 14:58 Amorphous Sediment Not Reportable 01/08/25 14:58 Urine Bacteria 3+ /hpf (NONE) H 01/08/25 14:58 Hyaline Casts 17.37 /lpf 01/08/25 14:58 All radiology interpretation(s) finalized by discharge EKG Data EKG 1: Interpretation: EKG 01/08/2025 1455 sinus rhythm occasional PVCs right axis this deviation. Rate of 80 NE interval 167 QTc [address] elevation noted. Compared to EKG 07/30/2024 left bundle branch block no longer present EKG 2: I personally reviewed and interpreted this EKG as follows: EKG interpretation date: 01/08/25 Prior EKG tracings: available for review Interpretation: EKG 01/08/2025 1645 sinus rhythm PVCs rate 81 NE interval 169 QTc 509. Compared to EKG done earlier same day PVCs more frequent no acute ST changes no ST elevation Discharge Plan Discharge Patient Disposition: Placed in Observation Clinical Impression: Bladder cancer, Acute kidney injury, Acute hyperkalemia, Cystitis Coding Level of Care Code ED Staging Technician for Yung Garnica
--- NOTE | 2025-01-08 17:59 | PM.HP ---
Providers/Chief Complaint Admitting Physician: Duglas Sharma MD Primary Care Provider: Charli Piña MD Chief Complaint: Dizziness/ Neausa History of Present Illness Ricardo Nelson is a 89 year old male with past medical history of with past medical history of hypertension, hypothyroidism, TAVR, CAD, chronic indwelling Wang catheter, skilled nursing resident comes from the skilled nursing today because of generalized weakness, nausea along with shivering which started today morning. Symptoms are associated with left lower quadrant abdominal pain which is colicky in nature. Also complains of few episodes of diarrhea. Patient states he was at his baseline health until last night. He has been having frequent episodes of bladder spasms for which they have changed his Wang catheter twice for last 3 weeks. He has been treated with Bactrim for UTI recently as per the family members. Patient examination laying comfortably in bed currently. Denies any nausea, vomiting. Hemodynamically stable. Blood work in the ER shows potassium of 5.6 with creatinine of 2.1 with baseline creatinine of 1-1.1. UA concerning for UTI. Review of Systems General: Reports: 10 or more systems reviewed and unremarkable except in HPI and below Const: Denies: fever(s), chills, body aches, change in appetite, change in weight, malaise, night sweats, diaphoresis, change in sleep pattern, daytime sleepiness or snoring Eyes: Denies: change in vision, blurry vision, photophobia, eye discomfort or eye discharge ENMT: Denies: throat pain, enlarged tonsils, hoarseness, mouth pain, oral sores, dry mouth, tinnitus, nasal congestion or post nasal drip Card: Denies: chest pain, palpitations, irregular heart rhythm, edema, swelling of feet/ankles, lightheadedness, syncope, pre-syncope, dyspnea on exertion, orthopnea, leg pain with exertion or acrocyanosis Resp: Denies: dyspnea, productive cough, non-productive cough, wheezing, stridor, pain on inspiration, change in phlegm color, hemoptysis or chest congestion GI: Denies: abdominal pain, nausea, vomiting, hematemesis, coffee ground emesis, dysphagia, heartburn, diarrhea, constipation, bloating, GI cramping, change in bowel habits, pain on defecation, hematochezia or melena : Denies: flank pain, difficulty urinating, dysuria, urinary frequency, urinary urgency, urinary hesitancy, urinary dribbling, difficulty starting urination, change in urine stream, nocturia or hematuria Musc: Denies: neck pain, back pain, extremity pain, joint pain, joint swelling, joint redness, joint stiffness or limited range of motion Neuro: Denies: headache(s), numbness in extremities, weakness in extremities, sensory changes, lack of coordination, difficulty walking, frequent falls, dizziness, vertigo, confusion, Slurred speech present, difficulty communicating thoughts or seizure-like activity Psych: Denies: anxiety, depression, mood swings, panic attacks, hopelessness or irritability Endo: Denies: polyuria, polydipsia, tired all the time, cold intolerance, excessive sweating, flushing or heat intolerance Teo/Lymph: Denies: easy bruising or easy bleeding All/Imm: Denies: tongue swelling, facial swelling or acute wheezing Medications/Allergies Home Medications ?Medication ?Instructions ?Recorded ?Confirmed ?Last Taken ?Type aspirin 81 mg tablet,delayed 81 mg PO DAILY 08/20/19 01/08/25 01/08/25 History release acetaminophen 325 mg tablet 650 mg PO QID PRN Pain 07/21/20 01/08/25 09/27/22 History (Tylenol) nitroglycerin 0.4 mg sublingual 0.4 mg sublingual Q5M PRN chest 01/28/21 01/08/25 Unknown History tablet pain levothyroxine 25 mcg tablet See Rx Instructions .Route 03/30/23 01/08/25 01/08/25 08:00 Rx .COMPLEX #90 tabs bisacodyl 10 mg rectal suppository 10 mg OR DAILY PRN constipation 01/24/24 01/08/25 Unknown History (Dulcolax (bisacodyl)) magnesium hydroxide 400 mg/5 mL 30 ml PO BID PRN constipation 01/24/24 01/08/25 Unknown History oral suspension (Milk of Magnesia) sertraline 50 mg tablet (Zoloft) 50 mg PO DAILY 01/24/24 01/08/25 01/07/25 19:00 History lisinopril 40 mg tablet 40 mg PO DAILY #90 tabs 07/30/24 01/08/25 01/08/25 08:00 Rx calcium carbonate 1,000 mg PO DAILY indigestion 01/08/25 01/08/25 01/07/25 History dextromethorphan-guaifenesin 10 10 ml PO Q4H PRN Cough 01/08/25 01/08/25 Unknown History mg-100 mg/5 mL oral liquid (Marcela-Tussin DM) ondansetron HCl 4 mg tablet 4 mg PO Q4H PRN Nausea And Vomiting 01/08/25 01/08/25 Unknown History polyethylene glycol 3350 17 17 g PO DAILY PRN constipation 01/08/25 01/08/25 Unknown History gram/dose oral powder (Miralax) sodium phosphates 19 gram-7 118 ml OR DAILY PRN Constipation 01/08/25 01/08/25 Unknown History gram/118 mL enema (Fleet Enema) Allergies Allergy/AdvReac Type Severity Reaction Status Date / Time No Known Allergies Allergy Verified 07/30/24 15:21 PFSH Acute PFSH: Medical History (Updated 01/08/25 @ 18:09 by Duglas Sharma MD) Irregularly irregular pulse rhythm Severe aortic valve stenosis Hyperkalemia HALEY (acute kidney injury) Acute exacerbation of CHF (congestive heart failure) Hx of goiter 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 Falls Weakness Urinary tract infection Hypothyroid Nocturia Atherosclerosis of coronary artery Incomplete bladder emptying Hx of carpal tunnel syndrome History of bradycardia Mitral valve prolapse Recurrent UTI History of paroxysmal supraventricular tachycardia Gouty arthritis Goiter Bladder cancer Surgical History History of bladder surgery History of PTCA Hx of CABG H/O heart artery stent 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 S/P TURP (status post transurethral resection of prostate) Family History Father , at age 69 Suicide Mother , at age 89 CAD (coronary artery disease) Diabetes Sister Diabetes Lung disease Brother Diabetes Stroke Denies family history of Clotting disorder Dementia Chronic kidney disease (CKD) Anesthesia complication Bleeding disorder Cancer Social History Smoking and tobacco/nicotine status: tobacco/nicotine user, details unknown Alcohol intake: never Marital status: Current occupational status: retired Vitals/I&O/Wt Last Vital Signs Temp 98.4 F 01/08/25 14:50 Pulse 86 01/08/25 17:07 Resp 16 01/08/25 14:50 BP 116/65 01/08/25 17:07 Pulse Ox 92 01/08/25 17:07 O2 Del Method Room Air 01/08/25 17:07 Weight last 48 hrs Weight 85.729 kg Physical Exam Narrative: General: No acute distress, AO x3, chronically sick appearing, elderly HEENT: PERRLA, pupils bilaterally equal and reactive Chest: Normal vesicular breath sounds, no added sounds, equal good air entry bilaterally CVS: S1-S2 regular, no murmurs, no tachycardia, no gallops, no rubs Abdomen: Soft, nontender, no organomegaly, bowel sounds present Neuro: No focal deficits, no facial deformity, AO x3, power 5/5 in all limbs Data 01/08/25 14:57 01/08/25 14:57 A&P Assessment and plan 1. Complicated UTI (urinary tract infection): Completed in setting of chronic indwelling Wang catheter. Has been treated with Bactrim recently. UA concerning for UTI with more than 100 RBC and WBC with 3+ bacteria. Check blood culture, follow-up urine culture. Check MRSA swab, trend procalcitonin. High concern for UTI with resistant bacteria. For now start on IV meropenem. De-escalate as per culture sensitivities. Will plan to finish a 7-day course. Wang catheter has been changed recently as per family member. Check CT abdomen pelvis to rule out obstructive nephropathy. 2. Acute kidney injury: Baseline creatinine 1. Currently 2.1. Most likely in setting of home use of lisinopril, dehydration because of poor oral intake along with recent use of Bactrim. Currently associated with hyperkalemia. Medical reconciliation done for nephrotoxic drugs. Repeat BMP in evening. Strict input output charting. NS at 75 cc/h. 3. Acute hyperkalemia: Treated in the ER with sodium bicarbonate, albuterol and Kayexalate. Repeat potassium level at 8 PM. Will treat accordingly. 4. Benign essential HTN: Goal blood pressure less than 140/90 mmHg. Takes lisinopril 40 mg daily at home. Hold off on antihypertensive for now. If needed will start on low-dose amlodipine. 5. Atherosclerosis of coronary artery of [place] heart without angina pectoris: Denies any active chest pain. Check A1c, lipid panel. Continue with home dose of aspirin. Will start on statin depending on lipid panel. 6. History of transcatheter aortic valve replacement (TAVR): Last echocardiogram from January 2024 showed an normal EF with normal functioning and placed bioprosthetic aortic valve. 7. Failure of outpatient treatment: Plan: Patient complaining of diarrhea. Check stool studies. Low concern for C. difficile for now. Full code. Daughter will be DPOA. Cardiac diet. Famotidine for PUD prophylaxis Heparin 5000 every 12 hourly for DVT prophylaxis PDMP PDMP Reviewed: Not Reviewed Attestations Medical Necessity Statement*: Admission for more than 2 midnights for management of acute injury with hyperkalemia in setting of dehydration, Bactrim, complicated UTI with failure to outpatient treatment Diagnoses Complicated UTI (urinary tract infection) N39.0 Acute kidney injury N17.9 Acute hyperkalemia E87.5 Benign essential HTN I10 Atherosclerosis of coronary artery of [place] heart without angina pectoris I25.10 History of transcatheter aortic valve replacement (TAVR) Z95.2 Failure of outpatient treatment Z78.9
[2025-01-08 18:36] LABS: Procalcitonin 1.37 ng/mL (0-0.5)
[2025-01-08] MEDS: calcium gluconate 0.1 gm/mL 10% SDV 10mL 1 GM IVP (20:15)
[2025-01-08] MEDS: meropenem 1,000 mg SDV 1000 MG IVP (20:16)
[2025-01-08] MEDS: heparin 5,000 unit/mL INJ 1 mL 5000 UNIT SUBCUT (20:16)
[2025-01-08 20:18] LABS: Estmated Average Glucose 131; Hemoglobin A1C 6.2 % (4.0-6.0)
--- NOTE | 2025-01-08 20:48 | ECG_ITS ---
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 Measurements Intervals [place] Rate: 80 P: 0 MN: 0 QRS: -32 QRSD: 162 T: 117 QT: 456 QTc: 527 Interpretive Statements ECTOPIC ATRIAL RHYTHM WITH VENTRICULAR ECTOPIC BEATS LEFT AXIS DEVIATION [QRS AXIS < -30] LEFT BUNDLE BRANCH BLOCK [120+ ms QRS DURATION, 80+ ms Q/S IN V1/V2, 85+ ms R IN I/aVL/V5/V6] Compared to ECG 01/08/2025 16:45:31 Left-axis deviation now present Sinus rhythm no longer present Electronically Signed On 01-08-2025 21:51:40 CDT by Cameron Hill M.D. [email or web address] [id number]
[2025-01-08 21:41] LABS: Troponin 5 6HR 83.01 ng/L (0-15)
[2025-01-08 21:42] LABS: Troponin 5 6HR Delta -5.99 ng/L (0-12)
[2025-01-08 21:43] LABS: Anion Gap 21.0 (5-19); Blood Urea Nitrogen 38 mg/dL (8-23); Calcium 7.4 mg/dL (8.5-10.5); Carbon Dioxide 18 mmol/L (22-29); Chloride 104 mmol/L (98-107); Creatinine Clr Calc Pharmacy 23.4819; Glucose 179 mg/dL (65-115); Osmolality Calculated 300 mOsm/kg (285-295); Potassium 5.0 mmol/L (3.5-5.1); Sodium 138 mmol/L (136-145)
[2025-01-08 21:45] LABS: Lactic Sepsis W/Reflex 1.8 mmol/L (0.5-2.2)
[2025-01-09] VITALS (11 sets, daily range): BP systolic 98–164; BP diastolic 39–96; PULSE 69–96; RESP 14–26; TEMP 36.6–37.3; O2SAT 92–98
[2025-01-09 00:28] LABS: Vitamin B12 425 pg/mL (232-1245)
[2025-01-09 03:34] LABS: Hematocrit 32.2 % (37-53); Hemoglobin 10.10 g/dL (11.27-16.99); Mean Corpuscular HGB Conc 31.4 g/dL (30-55); Mean Corpuscular Hemoglobin 30.6 pg (27-33); Mean Corpuscular Volume 97.6 fl (82-101); Nucleated Red Blood Cells % 0 %; Platelet Count 180 10^3/cmm (157-399); Red Blood Count 3.30 10^6/uL (3.85-5.65); White Blood Count 25.69 10^3/uL (3.29-11.43)
[2025-01-09 03:56] LABS: Alanine Aminotransferase 8 U/L (0-41); Albumin Level 3.4 g/dL (3.5-5.2); Alkaline Phosphatase 105 U/L (40-130); Anion Gap 18.7 (5-19); Aspartate Amino Transferase 16 U/L (0-40); Blood Urea Nitrogen 40 mg/dL (8-23); Calcium 7.2 mg/dL (8.5-10.5); Carbon Dioxide 21 mmol/L (22-29); Chloride 106 mmol/L (98-107); Creatinine Clr Calc Pharmacy 22.5427; Globulin 2.6 g/dL (1.3-4.6); Glucose 128 mg/dL (65-115); Magnesium 2.1 mg/dL (1.7-2.3); Osmolality Calculated 301 mOsm/kg (285-295); Potassium 5.7 mmol/L (3.5-5.1); Sodium 140 mmol/L (136-145); Total Protein 6.0 g/dL (6.6-8.7)
[2025-01-09 03:59] LABS: Cholesterol 123 mg/dL (0-200); HDL Cholesterol 30 mg/dL (60-100); Triglycerides 102 mg/dL (0-150)
[2025-01-09 04:24] LABS: Procalcitonin > 100.00 ng/mL (0-0.5)
[2025-01-09] MEDS: lactulose oral liq 20 gm/30 mL UDC 10 GM PO (05:06)
[2025-01-09] MEDS: meropenem 1,000 mg SDV 1000 MG IVP ×2 (07:41→20:28)
[2025-01-09] MEDS: heparin 5,000 unit/mL INJ 1 mL 5000 UNIT SUBCUT ×2 (07:41→20:28)
[2025-01-09] MEDS: morphine 4 mg/mL SDV 1 mL 2 MG IVP (07:53)
--- NOTE | 2025-01-09 08:00 | CTR_ITS ---
PROCEDURE INFORMATION: Exam: CT Abdomen And Pelvis Without Contrast Exam date and time: 01/09/2025 4:43 AM Age: 89 years old Clinical indication: Abdominal pain; Additional info: Diony TECHNIQUE: Imaging protocol: Computed tomography of the abdomen and pelvis without contrast. Radiation optimization: All CT scans at this facility use at least one of these dose optimization techniques: automated exposure control; mA and/or kV adjustment per patient size (includes targeted exams where dose is matched to clinical indication); or iterative reconstruction. COMPARISON: US renal BI* [id number] 10/09/2023 7:12 AM RADIATION DOSE METRICS: Total DLP (mGy-cm): 987.53 FINDINGS: Lungs: Bronchiectasis with mucous plugging is visible in each lower lobe. Subpleural nodularity is present. The largest is on the right and measures 2.4 x 1.0 cm in size. Three six-month follow-up chest CT recommended to ensure stability. Trace left pleural effusion. Pleural spaces: Trace left pleural effusion. Heart: TAVR. Liver: Scattered low-attenuation structures within the liver, predominantly the left lobe measure up to 13 mm in diameter. These are probably cysts. Likely hepatic cysts. Gallbladder and biliary ducts: Normal. No calcified stones. No ductal dilation. Pancreas: Normal. No ductal dilation. Spleen: Normal. No splenomegaly. Adrenal glands: Normal. No mass. Kidneys and ureters: Poorly defined high density material within the left renal pelvis is probably a staghorn calculus, poorly calcified. Stomach and bowel: Unremarkable. No obstruction. No mucosal thickening. Appendix: No evidence of appendicitis. Intraperitoneal space: Unremarkable. No free air. No significant fluid collection. Vasculature: Unremarkable. No abdominal aortic aneurysm. Lymph nodes: Unremarkable. No enlarged lymph nodes. Urinary bladder: The urinary bladder is collapsed around a Wang catheter. Vesicular calculi are present as well. Reproductive: Unremarkable as visualized. Bones/joints: Right hip replacement. Soft tissues: Unremarkable. CT/CT abdomen pelvis wo con [id number] IMPRESSION: 1. Left renal and vesicular calculi. 2. Subpleural nodularity. 3-6 month follow-up chest CT recommended. For patients at low risk (minimal or absent history of smoking and of other known risk factors), recommend CT Chest at 3-6 months, then consider CT Chest at 18-24 months. For patients at high risk (history of smoking or of other known risk factors), recommend CT Chest at 3-6 months, then CT Chest at 18-24 months. (Reference: Ana Laura) REFERENCES: Ana Laura Yanez, et al. Guidelines for Management of Incidental Pulmonary Nodules Detected on CT Images: From the Fleischner Society 2017. Radiology. 2017;284(1):228-243.
--- NOTE | 2025-01-09 08:00 | PC.NURSE ---
Patient from [facility]. Chronic briggs catheter in place.
[2025-01-09] MEDS: insulin regular-human 100 units/1 mL 10 UNIT IVP ×2 (10:27→17:26)
[2025-01-09 11:17] LABS: Potassium, Radom Urine 54 mmol/L; Urine Random Chloride 34 mmol/L; Urine Random Sodium 49 mmol/L
--- NOTE | 2025-01-09 11:58 | P.PN_ITS ---
Subjective 2 Subjective: No acute events overnight. Patient laying comfortably in bed. Continues to have multiple soft bowel movements. Denies any nausea, vomiting today. States abdominal pain is better. Has remained hemodynamically stable and afebrile. Vitals/I&O/Wt Last Vital Signs Temp 97.8 F 01/09/25 08:00 Pulse 90 01/09/25 09:16 Resp 20 H 01/09/25 09:16 BP 140/96 01/09/25 08:00 Pulse Ox 97 01/09/25 09:16 O2 Del Method Room Air 01/09/25 09:16 01/08/25 01/09/25 01/09/25 22:59 06:59 14:59 Intake Total 120 / 120 2335 / 2335 Output Total 100 / 100 250 / 350 Balance -100 / -100 -130 / -230 2335 / 2335 Weight last 48 hrs Weight 90.1 kg Weight 88.8 kg Weight 85.729 kg Physical Exam 2 Narrative: General: No acute distress, AO x3, chronically sick appearing, elderly HEENT: PERRLA, pupils bilaterally equal and reactive Chest: Normal vesicular breath sounds, no added sounds, equal good air entry bilaterally CVS: S1-S2 regular, no murmurs, no tachycardia, no gallops, no rubs Abdomen: Soft, nontender, no organomegaly, bowel sounds present Neuro: No focal deficits, no facial deformity, AO x3, power 5/5 in all limbs Data 01/09/25 03:02 01/09/25 03:02 Micro: Microbiology 01/09/25 10:47 Bacterial Antigens - Final Urine Kidney 01/08/25 14:58 Urine Culture - Preliminary Urine,Clean Catch Gram Negative Rods 01/09/25 09:26 Blood Culture - Preliminary Blood SPECIMEN COLLECTED 01/09/25 09:22 Blood Culture - Preliminary Blood SPECIMEN COLLECTED A&P Assessment and plan 1. Complicated UTI (urinary tract infection): Completed in setting of chronic indwelling Wang catheter. Has been treated with Bactrim recently. UA concerning for UTI with more than 100 RBC and WBC with 3+ bacteria. Follow-up blood cultures and urine culture. So far urine culture growing gram- negative rods. MRSA swab pending. Appreciate positive trend and procalcitonin. Procalcitonin more than 100 today. High concern for UTI with resistant bacteria. For now start on IV meropenem. De-escalate as per culture sensitivities. Will plan to finish a 7-day course. Wang catheter has been changed recently as per family member. Appreciate CT on pelvis. 2. Acute kidney injury: Baseline creatinine 1. Creatinine worsened to 2.5. Does have mild uremia with BUN up to 40. Most likely in setting of home use of lisinopril, dehydration because of poor oral intake along with recent use of Bactrim. Currently associated with hyperkalemia. Medical reconciliation done for nephrotoxic drugs. Holding off on home dose of lisinopril. Bactrim discontinued. Repeat BMP in evening. Strict input output charting. NS at 75 cc/h. 3. Acute hyperkalemia: Treated in the ER with sodium bicarbonate, albuterol and Kayexalate. Repeat potassium level at 8 PM. Will treat accordingly. Hyperkalemia resolved. Today again patient has potassium of more than 5. Repeat dose of Kayexalate. Will give D10 and 10 units of insulin. Repeat potassium in evening. 4. Benign essential HTN: Goal blood pressure less than 140/90 mmHg. Takes lisinopril 40 mg daily at home. Hold off on antihypertensive for now. If needed will start on low-dose amlodipine. 5. Atherosclerosis of [place] coronary artery of [place] heart without angina pectoris: Denies any active chest pain. Appreciate A1c, lipid panel. Continue with home dose of aspirin. Hold off on starting statin for now. 6. History of transcatheter aortic valve replacement (TAVR): Last echocardiogram from January 2024 showed an normal EF with normal functioning and placed bioprosthetic aortic valve. 7. Failure of outpatient treatment: Plan: Patient has worsening leukocytosis today. Continues to have diarrhea. Stool studies pending. Concern for C. difficile. Full code. Daughter will be DPOA. Cardiac diet. Famotidine for PUD prophylaxis Heparin 5000 every 12 hourly for DVT prophylaxis PDMP PDMP Reviewed: Not Reviewed Attestations 2 Medical Necessity Statement*: Requires further hospitalization for management of HALEY with hyperkalemia, complicated UTI, diarrhea while C. difficile ruled out Diagnoses Complicated UTI (urinary tract infection) N39.0 Acute kidney injury N17.9 Acute hyperkalemia E87.5 Benign essential HTN I10 Atherosclerosis of [place] coronary artery of [place] heart without angina pectoris I25.10 Coronary Disease-Associated Artery/Lesion type: [place] artery History of transcatheter aortic valve replacement (TAVR) Z95.2 Failure of outpatient treatment Z78.9
[2025-01-09 12:11] LABS: MRSA PCR OZH (swab) MRSA Detected (Negative)
[2025-01-09 12:12] LABS: Urine Eosinophil Count 5 (0-0)
[2025-01-09 15:41] LABS: Anion Gap 18.1 (5-19); Blood Urea Nitrogen 43 mg/dL (8-23); Calcium 7.0 mg/dL (8.5-10.5); Carbon Dioxide 18 mmol/L (22-29); Chloride 107 mmol/L (98-107); Creatinine Clr Calc Pharmacy 21.0146; Glucose 101 mg/dL (65-115); Osmolality Calculated 297 mOsm/kg (285-295); Potassium 5.1 mmol/L (3.5-5.1); Sodium 138 mmol/L (136-145)
--- NOTE | 2025-01-09 21:00 | ECG_ITS ---
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 Measurements Intervals [place] Rate: 144 P: 5 MD: 110 QRS: 16 QRSD: 168 T: 135 QT: 313 QTc: 486 Interpretive Statements SINUS TACHYCARDIA WITH SHORT MD INTERVAL, POSSIBLE ATRIAL FLUTTER LEFT BUNDLE BRANCH BLOCK [120+ ms QRS DURATION, 80+ ms Q/S IN V1/V2, 85+ ms R IN I/aVL/V5/V6] Compared to ECG 01/08/2025 20:48:56 Ectopic atrial rhythm no longer present Left-axis deviation no longer present Electronically Signed On 01-11-2025 12:02:07 CDT by Didier Ahuja M.D. [id number]
[2025-01-09] MEDS: metoprolol tartrate 1 mg/1 mL SDV 5 mL 5 MG (21:09)
[2025-01-09] MEDS: ondansetron 2 mg/ML SDV 2 mL 4 MG IVP (21:09)
--- NOTE | 2025-01-09 21:19 | P.EN_ITS ---
Event Note Event Note: patient had tachycardia, sinus in nature, without any BP drop patient clinically euvolemic, alert and oriented, clear chest ascultation urgent EKG showed sinus tachy metoprolol 5mg iv stat trop electrolytes K, Mg and Ca with BMP telemetry to continue monitor hemodynamics Event Notes Attestations Time Spent in Patient Care: 16 - 35 minutes (>than 50% of time sp ent in counselling and/or direct pt care on unit) .
[2025-01-09 21:40] LABS: Troponin(5th) Baseline 84 ng/L (0-15)
[2025-01-09 21:43] LABS: Anion Gap 25.4 (5-19); Blood Urea Nitrogen 43 mg/dL (8-23); Calcium 6.9 mg/dL (8.5-10.5); Carbon Dioxide 16 mmol/L (22-29); Chloride 103 mmol/L (98-107); Creatinine Clr Calc Pharmacy 19.5653; Glucose 113 mg/dL (65-115); Magnesium 2.0 mg/dL (1.7-2.3); Osmolality Calculated 302 mOsm/kg (285-295); Potassium 4.4 mmol/L (3.5-5.1); Sodium 140 mmol/L (136-145)
[2025-01-09] MEDS: calcium gluconate 0.9% NaCL 1 GM/50 ML PREMIX IV ×2 (22:19→23:52)
--- NOTE | 2025-01-09 23:02 | ECG_ITS ---
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 Measurements Intervals [place] Rate: 92 P: 80 MO: 144 QRS: 119 QRSD: 158 T: -24 QT: 435 QTc: 541 Interpretive Statements SINUS RHYTHM WITH FREQUENT VENTRICULAR PREMATURE COMPLEXES RIGHT AXIS DEVIATION [QRS AXIS > 100] INTRAVENTRICULAR CONDUCTION DELAY [130+ ms QRS DURATION] Compared to ECG 01/09/2025 21:00:18 Ventricular premature complex(es) now present Right-axis deviation now present Intraventricular conduction delay now present Left bundle-branch block no longer present Electronically Signed On 01-11-2025 12:09:08 CDT by Didier Ahuja M.D. [id number] [id number]
[2025-01-10] VITALS (7 sets, daily range): BP systolic 99–135; BP diastolic 43–58; PULSE 74–94; RESP 18–30; TEMP 36.6–37.1; O2SAT 92–94; BMI 30.5
[2025-01-10 00:02] LABS: Troponin 5 2HR 104.1 ng/L (0-15); Troponin 5 2HR Delta 20.1 ABS# (0-10)
[2025-01-10] MEDS: morphine 4 mg/mL SDV 1 mL 2 MG IVP ×2 (02:01→23:03)
--- NOTE | 2025-01-10 02:11 | USCV_ITS ---
Ricardo Nelson Age: 89 Gender: M : 1935 Exam Date: 01/10/2025 03:36 Ordering Phys: Jose Tomas MD Technologist: HÉCTOR Exam Location: [facility] [place] Indication: intermittent tachycardia, history of TAVR, CAD, HTN BP: 118 / 39 HR: 95 Rhythm: Sinus Technical Quality: Adequate MEASUREMENTS (Male / Female) Normal Values 2D ECHO LV Diastolic Diameter PLAX 5.5 cm 4.2 - 5.9 / 3.9 - 5.3 cm IVS Diastolic Thickness 1.5 cm 0.6 - 1.0 / 0.6 - 0.9 cm IVS Systolic Thickness 1.6 cm LVPW Diastolic Thickness 1.4 cm 0.6 - 1.0 / 0.6 - 0.9 cm LVPW Systolic Thickness 1.3 cm LVOT Diameter 1.9 cm LV Ejection Fraction 2D Teich 21.9 % LV Ejection Fraction MOD 4C 28.0 % LV Ejection Fraction MOD 2C 45.9 % LV Ejection Fraction 2C AL 45.8 % LA Diameter 3.9 cm Aorta at Sinotubular Diameter 2.2 cm IVC Diameter 1.6 cm M-MODE LA Ao Ratio MM 1.4 AV Cusp Separation MM 1.8 cm DOPPLER AV Peak Velocity 147.0 cm/s LVOT Peak Velocity 91.0 cm/s AV Area Cont Eq vti 2.1 cm squared AV Area Cont Eq pk 1.8 cm squared MV Peak Velocity 177.0 cm/s MV Area PHT 3.7 cm squared Mitral E to A Ratio 0.8 TV Peak E Velocity 80.0 cm/s PV Peak Velocity 137.0 cm/s FINDINGS Left Ventricle Moderately increased left ventricular cavity size. Severely decreased left ventricular systolic function. Left ventricular ejection fraction is estimated at 30 %. Global left ventricular hypokinesis with septal bounce which could be secondary to interventricular conduction delay. Grade I/IV diastolic dysfunction (abnormal relaxation filling pattern), normal to mildly elevated filling pressures. Right Ventricle Normal right ventricular size and systolic function. Right Atrium Normal right atrial size. Left Atrium Normal left atrial size. IA Septum Normal appearance of the interatrial septum. Mitral Valve Normal mitral valve structure. No mitral valve stenosis , trace regurgitation. Aortic Valve Bioprosthetic aortic valve is sitting in normal position without significant stenosis, there appeared to be mild possible paravalvular leak, WILFREDO is a better modality to assess it for further detail if indicated Tricuspid Valve Trace tricuspid valve regurgitation. Pulmonic Valve Moderate pulmonary valve regurgitation. Pericardium No pericardial effusion. Aorta Normal IVC Dilated IVC with decreased respiratory variation. CONCLUSIONS Moderately increased left ventricular cavity size. Severely decreased left ventricular systolic function. Left ventricular ejection fraction is estimated at 30 %. Global left ventricular hypokinesis with septal bounce which could be secondary to interventricular conduction delay. Grade I/IV diastolic dysfunction (abnormal relaxation filling pattern), normal to mildly elevated filling pressures. Bioprosthetic aortic valve is sitting in normal position without significant stenosis, there appeared to be mild possible paravalvular leak, WILFREDO is a better modality to assess it for further detail if indicated Moderate pulmonary valve regurgitation. There is no pericardial effusion. Right atrial pressure is around 15 mm of mercury. Princess Colmenares MD (Electronically Signed) Final Date: 10 January 2025 16:33 S
[2025-01-10 03:31] LABS: Hematocrit 31.1 % (37-53); Hemoglobin 9.80 g/dL (11.27-16.99); Mean Corpuscular HGB Conc 31.5 g/dL (30-55); Mean Corpuscular Hemoglobin 30.5 pg (27-33); Mean Corpuscular Volume 96.9 fl (82-101); Nucleated Red Blood Cells % 0 %; Platelet Count 144 10^3/cmm (157-399); Red Blood Count 3.21 10^6/uL (3.85-5.65); White Blood Count 11.95 10^3/uL (3.29-11.43)
[2025-01-10 04:06] LABS: Troponin 5 6HR 120.1 ng/L (0-15); Troponin 5 6HR Delta 36.1 ng/L (0-12)
[2025-01-10 04:07] LABS: Alanine Aminotransferase 10 U/L (0-41); Albumin Level 3.2 g/dL (3.5-5.2); Alkaline Phosphatase 134 U/L (40-130); Anion Gap 23.9 (5-19); Aspartate Amino Transferase 17 U/L (0-40); Blood Urea Nitrogen 43 mg/dL (8-23); Calcium 7.2 mg/dL (8.5-10.5); Carbon Dioxide 15 mmol/L (22-29); Chloride 105 mmol/L (98-107); Creatinine Clr Calc Pharmacy 20.2641; Globulin 2.1 g/dL (1.3-4.6); Glucose 114 mg/dL (65-115); Magnesium 2.0 mg/dL (1.7-2.3); Osmolality Calculated 300 mOsm/kg (285-295); Potassium 4.9 mmol/L (3.5-5.1); Sodium 139 mmol/L (136-145); Total Protein 5.3 g/dL (6.6-8.7)
--- NOTE | 2025-01-10 04:24 | PC.NURSE ---
Nurse notified of low bp.
--- NOTE | 2025-01-10 04:50 | PC.NURSE ---
Dr wanted the heparin drip to start at 12units/kg/hr instead of 14. Calculated 90kg per patients weight and was noted to be 22 rounded ml/hour starting rate. Verified with charge nurse accurate dosing.
[2025-01-10] MEDS: heparin drip 25,000 UNIT/500 ML PREMIX 22 UNIT IV (05:12)
[2025-01-10 05:27] LABS: Thyroid Stimulating Hormone 2.25 uIU/mL (0.27-4.20)
[2025-01-10 08:45] LABS: Anion Gap 22.0 (5-19); Blood Urea Nitrogen 42 mg/dL (8-23); Calcium 7.3 mg/dL (8.5-10.5); Carbon Dioxide 18 mmol/L (22-29); Chloride 106 mmol/L (98-107); Creatinine Clr Calc Pharmacy 21.1237; Glucose 108 mg/dL (65-115); Osmolality Calculated 303 mOsm/kg (285-295); Potassium 5.0 mmol/L (3.5-5.1); Sodium 141 mmol/L (136-145)
[2025-01-10] MEDS: meropenem 1,000 mg SDV 1000 MG IVP ×2 (09:11→21:03)
--- NOTE | 2025-01-10 11:08 | PC.SOCIAL ---
IMM Updated Updated pt on IMM. No questions voiced. Provided pt a copy. Initialed, dated, & timed a copy & placed in chart.
--- NOTE | 2025-01-10 12:44 | USR_ITS ---
PROCEDURE INFORMATION: Exam: US Retroperitoneal, Complete, Kidneys and Bladder Exam date and time: 01/10/2025 5:16 PM Age: 89 years old Clinical indication: Abnormal findings; Abnormal radiologic finding of the abdomen; Radiologic exam and body structure: CT kidney stone; Additional info: Kidney stone, hydronephrosis TECHNIQUE: Imaging protocol: Real-time ultrasound of the retroperitoneum with image documentation. Complete exam focused on the bilateral kidneys and urinary bladder. COMPARISON: US renal BI* [id number] 10/09/2023 7:12 AM FINDINGS: Right kidney: Simple cyst in the right kidney measures 1.0 x 1.1 x 1.2 cm. No right-sided hydronephrosis or nephrolithiasis. No right-sided hydronephrosis. The right kidney measures 11.4 cm in length Left kidney: Simple cysts in the left kidney measures 1.5 x 1.1 x 1.5 cm and 1.2 x 1.1 x 1.8 cm, respectively. Mild left-sided hydronephrosis. No nephrolithiasis. The left kidney measures 13.0 cm in length Urinary bladder: Decompressed bladder with Wang catheter in place. Gallbladder: Incidentally, there is the suggestion of mild gallbladder wall thickening which may be a component of perihepatic fat as the remaining portions of the gallbladder wall are thin and normal in thickness. There is no definite pericholecystic fluid. No cholelithiasis. If there is clinical concern for acute cholecystitis further evaluation with HIDA scan could be considered. Aorta: The aorta is normal in caliber measuring 2.0 cm. US/US renal BI* [id number] IMPRESSION: 1. Mild left-sided hydronephrosis compatible with prior CT examination of 01/09/2025. No nephrolithiasis. The ureter is not well-visualized. 2. No right-sided hydronephrosis. Trace fluid just inferior to the right kidney similar to prior CT. 3. Simple cysts in both kidneys. 4. Incidentally, there is the suggestion of mild gallbladder wall thickening which may be a component of perihepatic fat as the remaining portions of the gallbladder wall is thin and normal in thickness. There is no definite pericholecystic fluid. No cholelithiasis. If there is clinical concern for acute cholecystitis further evaluation with HIDA scan could be considered.
[2025-01-10 12:50] LABS: Partial Thromboplastin Time 95.8 SECONDS (23.9-36.7)
--- NOTE | 2025-01-10 12:50 | P.PN_ITS ---
Subjective 2 Subjective: Overnight patient had episode of chills along with tachycardia. On telemetry it seems he had sinus tachycardia going up to 120. Patient continues to have occasional episodes of diarrhea. Denies any nausea, vomiting currently. Denies any difficulty in breathing. Has remained hemodynamically stable and afebrile. Vitals/I&O/Wt Last Vital Signs Temp 97.9 F 01/10/25 11:50 Pulse 82 01/10/25 11:50 Resp 18 01/10/25 11:50 BP 118/54 01/10/25 11:50 Pulse Ox 92 01/10/25 11:50 O2 Del Method Room Air 01/10/25 11:50 01/09/25 01/10/25 01/10/25 22:59 06:59 14:59 Intake Total 1385 / 3720 702.5 / 4422.5 1240 / 1240 Output Total 450 / 450 250 / 700 Balance 935 / 3270 452.5 / 3722.5 1240 / 1240 Weight last 48 hrs Weight 91.1 kg Weight 90.1 kg Weight 88.8 kg Weight 85.729 kg Physical Exam 2 Narrative: General: No acute distress, AO x3, chronically sick appearing, elderly HEENT: PERRLA, pupils bilaterally equal and reactive Chest: Normal vesicular breath sounds, no added sounds, equal good air entry bilaterally CVS: S1-S2 regular, no murmurs, no tachycardia, no gallops, no rubs Abdomen: Soft, nontender, no organomegaly, bowel sounds present Neuro: No focal deficits, no facial deformity, AO x3, power 5/5 in all limbs Data 01/10/25 02:53 01/10/25 08:09 Micro: Microbiology 01/09/25 09:26 Blood Culture - Preliminary Blood NEGATIVE TO DATE 01/09/25 09:22 Blood Culture - Preliminary Blood NEGATIVE TO DATE 01/09/25 10:47 Bacterial Antigens - Final Urine Kidney 01/08/25 14:58 Urine Culture - Preliminary Urine,Clean Catch Gram Negative Rods A&P Assessment and plan 1. Complicated UTI (urinary tract infection): Completed in setting of chronic indwelling Wang catheter. Has been treated with Bactrim recently. UA concerning for UTI with more than 100 RBC and WBC with 3+ bacteria. Follow-up blood cultures and urine culture. So far urine culture growing gram- negative rods. MRSA swab pending. Appreciate positive trend and procalcitonin. Procalcitonin more than 100 today. High concern for UTI with resistant bacteria. For now start on IV meropenem. De-escalate as per culture sensitivities. Will plan to finish a 7-day course. Wang catheter has been changed recently as per family member. Appreciate CT on pelvis. 2. Acute kidney injury: Baseline creatinine 1. Creatinine worsened to 2.5. Does have mild uremia with BUN up to 40. Most likely in setting of home use of lisinopril, dehydration because of poor oral intake along with recent use of Bactrim. Currently associated with hyperkalemia. Medical reconciliation done for nephrotoxic drugs. Holding off on home dose of lisinopril. Bactrim discontinued. Repeat BMP in evening. Strict input output charting. NS at 75 cc/h. 3. Acute hyperkalemia: Treated in the ER with sodium bicarbonate, albuterol and Kayexalate. Repeat potassium level at 8 PM. Will treat accordingly. Hyperkalemia resolved. Today again patient has potassium of more than 5. Repeat dose of Kayexalate. Will give D10 and 10 units of insulin. Repeat potassium in evening. 4. Benign essential HTN: Goal blood pressure less than 140/90 mmHg. Takes lisinopril 40 mg daily at home. Hold off on antihypertensive for now. If needed will start on low-dose amlodipine. 5. Atherosclerosis of [place] coronary artery of [place] heart without angina pectoris: Denies any active chest pain. Appreciate A1c, lipid panel. Continue with home dose of aspirin. Hold off on starting statin for now. 6. History of transcatheter aortic valve replacement (TAVR): Last echocardiogram from January 2024 showed an normal EF with normal functioning and placed bioprosthetic aortic valve. 7. Failure of outpatient treatment: Plan: Patient has worsening leukocytosis today. Continues to have diarrhea. Stool studies pending. Concern for C. difficile. Full code. Daughter will be DPOA. Renal nondialysis diet Famotidine for PUD prophylaxis Heparin 5000 every 12 hourly for DVT prophylaxis Plan for the day: As per nursing staff from [facility] Wang catheter was changed on December 25. Will plan for bladder scan. If no retaining urine we will continue with current Wang catheter otherwise will plan to replace and flush the Wang catheter. Follow-up urine culture. So far positive for gram-negative rods. For now continue with current dose of IV meropenem. Most likely patient may have to 7-day course of antibiotics given concern for complicated UTI. Repeat Pro-Maximo in AM. Kidney functions continue to remain high. Start on sodium bicarb oral tablets. Switch to renal dialysis diet. Monitor BMP in afternoon. Will consult nephrology for further recommendations. Plan for ultrasound kidney to rule out hydronephrosis and kidney stone. Replace 1 g of IV calcium. Switch to half NS at 75 cc/h. No hypokalemia today. Continue to monitor. IV Lasix 20 mg one-time. No active chest pain. Troponin cycle appreciated. Low concerns for non-ST elevation [place] for now. High concerns for demand ischemia. Follow-up echocardiogram results. For now continue with heparin drip. if no regional wall motion abnormality will discontinue echocardiogram. Repeat troponin later in the day. Continue with baby aspirin. Will plan for aspirin 325 one-time. Tried calling patient's Ms. Mary Jane Nelson over the phone. Unfortunately could not leave a message. PDMP PDMP Reviewed: Not Reviewed Attestations 2 Medical Necessity Statement*: Requires further hospitalization for management of HALEY with hyperkalemia, complicated UTI, diarrhea while C. difficile ruled out, non-ST elevation [place] versus demand ischemia Diagnoses Complicated UTI (urinary tract infection) N39.0 Acute kidney injury N17.9 Acute hyperkalemia E87.5 Benign essential HTN I10 Atherosclerosis of [place] coronary artery of [place] heart without angina pectoris I25.10 Coronary Disease-Associated Artery/Lesion type: [place] artery History of transcatheter aortic valve replacement (TAVR) Z95.2 Failure of outpatient treatment Z78.9
[2025-01-10] MEDS: FUROsemide 10 mg/mL SDV 2mL 20 MG IVP (13:30)
[2025-01-10] MEDS: ondansetron 2 mg/ML SDV 2 mL 4 MG IVP (13:38)
[2025-01-10] MEDS: calcium gluconate 0.9% NaCL 1 GM/50 ML PREMIX IV (13:51)
--- NOTE | 2025-01-10 16:10 | PM.CONSULT ---
Providers/Reason For Consult Consulting Physician/Specialty*: Princess Colmenares MD Reason for Consult*: [id number] PA New onset of heart failure New onset of LV dysfunction Sinus tachycardia History of coronary artery disease Urosepsis Attending Physician: Duglas Sharma MD Primary Care Provider: Charli Piña MD History of Present Illness History of Present Illness Ricardo Nelson is a 89 year old male past medical history significant for chronic kidney disease, coronary artery disease, bioprosthetic aortic valve status post IV was admitted with urosepsis shortness of breath noted to be tachycardic and hyperkalemia last night, troponin was checked which was high in the range of 105 with delta 36 from the baseline, it is the reason we have been asked to see the patient. Patient categorically denies any chest pain admits to shortness of breath shivering according to him last night he had pretty bad shivering with palpitations. He is feeling somewhat better. He does admit to shortness of breath. Baseline EKG showed sinus rhythm with left bundle branch block which is not new and PVCs. Medications/Allergies Home Medications ?Medication ?Instructions ?Recorded ?Confirmed ?Last Taken ?Type aspirin 81 mg tablet,delayed 81 mg PO DAILY 08/20/19 01/08/25 01/08/25 History release acetaminophen 325 mg tablet 650 mg PO QID PRN Pain 07/21/20 01/08/25 09/27/22 History (Tylenol) nitroglycerin 0.4 mg sublingual 0.4 mg sublingual Q5M PRN chest 01/28/21 01/08/25 Unknown History tablet pain levothyroxine 25 mcg tablet See Rx Instructions .Route 03/30/23 01/08/25 01/08/25 08:00 Rx .COMPLEX #90 tabs bisacodyl 10 mg rectal suppository 10 mg NC DAILY PRN constipation 01/24/24 01/08/25 Unknown History (Dulcolax (bisacodyl)) magnesium hydroxide 400 mg/5 mL 30 ml PO BID PRN constipation 01/24/24 01/08/25 Unknown History oral suspension (Milk of Magnesia) sertraline 50 mg tablet (Zoloft) 50 mg PO DAILY 01/24/24 01/08/25 01/07/25 19:00 History lisinopril 40 mg tablet 40 mg PO DAILY #90 tabs 07/30/24 01/08/25 01/08/25 08:00 Rx calcium carbonate 1,000 mg PO DAILY indigestion 01/08/25 01/08/25 01/07/25 History dextromethorphan-guaifenesin 10 10 ml PO Q4H PRN Cough 01/08/25 01/08/25 Unknown History mg-100 mg/5 mL oral liquid (Marcela-Tussin DM) ondansetron HCl 4 mg tablet 4 mg PO Q4H PRN Nausea And Vomiting 01/08/25 01/08/25 Unknown History polyethylene glycol 3350 17 17 g PO DAILY PRN constipation 01/08/25 01/08/25 Unknown History gram/dose oral powder (Miralax) sodium phosphates 19 gram-7 118 ml NC DAILY PRN Constipation 01/08/25 01/08/25 Unknown History gram/118 mL enema (Fleet Enema) Allergies Allergy/AdvReac Type Severity Reaction Status Date / Time No Known Allergies Allergy Verified 07/30/24 15:21 Current Medications Generic Name Dose Route Start Last Admin Trade Name Freq PRN Reason Stop Dose Admin Acetaminophen 650 mg 01/08/25 19:38 01/09/25 18:53 Acetaminophen 325 Mg Tablet PO 650 mg Q6H PRN Administration Mild/Mod Pain Or Temp >/= 101 Aspirin 81 mg 01/09/25 05:00 01/10/25 04:35 Aspirin 81 Mg Ec Tablet PO 81 mg DAILY ELIZA Administration Famotidine 20 mg 01/08/25 19:38 01/10/25 04:36 Famotidine 20 Mg/2 Ml Inj IVP 20 mg Q12H ELIZA Administration Heparin Sodium/Sodium Chloride 25,000 unit in 500 mls @ 0 mls/hr 01/10/25 04:45 01/10/25 12:56 Heparin Drip IV 9.43 unit/kg/hr CONT ELIZA 17 mls/hr Protocol Titration Per Protocol Sodium Chloride 1,000 mls @ 75 mls/hr 01/10/25 13:00 01/10/25 13:38 Sodium Chloride 0.45% IV 75 mls/hr .[id number] ELIZA Administration Insulin Human Lispro 0 unit 01/09/25 12:00 01/10/25 11:52 Insulin Lispro 100 Unit/1 Ml SUBCUT Not Given WM&BEDTIME ELIZA Protocol Lactulose 10 gm 01/08/25 19:38 01/09/25 05:06 Lactulose Oral Liq 20 Gm/30 Ml Udc PO 10 gm DAILY PRN Administration Constipation (see protocol) Protocol Levothyroxine Sodium 25 mcg 01/09/25 05:00 01/10/25 04:36 Levothyroxine 25 Mcg Tablet PO 25 mcg DAILY ELIZA Administration Magnesium Hydroxide 30 ml 01/08/25 19:38 01/09/25 05:06 Magnesium Hydroxide 30 Ml Udc PO 30 ml DAILY PRN Administration Constipation (see protocol) Protocol Meropenem 1,000 mg 01/08/25 19:38 01/10/25 09:11 Meropenem 1,000 Mg Sdv IVP 1,000 mg Q12H ELIZA Administration Protocol Metoprolol Tartrate 12.5 mg 01/10/25 05:00 01/10/25 04:36 Metoprolol Tartrate 25 Mg Tablet PO Not Given BID ELIZA Morphine Sulfate 2 mg 01/08/25 19:38 01/10/25 02:01 Morphine 4 Mg/Ml Sdv 1 Ml IVP 2 mg Q4H PRN Administration SEVERE PAIN Ondansetron HCl 4 mg 01/08/25 19:38 01/10/25 13:38 Ondansetron 2 Mg/Ml Sdv 2 Ml IVP 4 mg Q6H PRN Administration vomiting, or N/V if npo Sertraline HCl 50 mg 01/09/25 05:00 01/10/25 04:36 Sertraline 50 Mg Tablet PO 50 mg DAILY ELIZA Administration PFSH Acute PFSH: Medical History (Updated 01/10/25 @ 16:45 by Princess Colmenares MD) CKD (chronic kidney disease) Irregularly irregular pulse rhythm Severe aortic valve stenosis Hyperkalemia HALEY (acute kidney injury) Acute exacerbation of CHF (congestive heart failure) Hx of goiter 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 Falls Weakness Urinary tract infection Hypothyroid Nocturia Atherosclerosis of coronary artery Incomplete bladder emptying Hx of carpal tunnel syndrome History of bradycardia Mitral valve prolapse Recurrent UTI History of paroxysmal supraventricular tachycardia Gouty arthritis Goiter Bladder cancer Surgical History History of bladder surgery History of PTCA Hx of CABG H/O heart artery stent 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 S/P TURP (status post transurethral resection of prostate) Family History Father , at age 69 Suicide Mother , at age 89 CAD (coronary artery disease) Diabetes Sister Diabetes Lung disease Brother Diabetes Stroke Denies family history of Clotting disorder Dementia Chronic kidney disease (CKD) Anesthesia complication Bleeding disorder Cancer Social History Smoking and tobacco/nicotine status: tobacco/nicotine user, details unknown Alcohol intake: never Marital status: Current occupational status: retired Vitals/I&O/Wt Last Vital Signs Temp 97.9 F 01/10/25 11:50 Pulse 82 01/10/25 11:50 Resp 18 01/10/25 11:50 BP 118/54 01/10/25 11:50 Pulse Ox 92 01/10/25 11:50 O2 Del Method Room Air 01/10/25 11:50 01/10/25 01/10/25 01/10/25 06:59 14:59 22:59 Intake Total 702.5 / 4422.5 1410.133 / 1410.133 50 / 1460.133 Output Total 250 / 700 300 / 300 Balance 452.5 / 3722.5 1110.133 / 1110.133 50 / 1160.133 Weight last 48 hrs Weight 200 lb 13.458 oz Weight 198 lb 10.184 oz Weight 195 lb 12.328 oz Physical Exam Const: OTHER: GENERAL: Patient is sitting in the bed does not appear to be distressed however some shortness of breath HEART: Regular but no murmur S1-S2 LUNGS: Decreased breath sound without any significant crackles y. CENTRAL NERVOUS SYSTEM: Grossly nonfocal. EXTREMITIES: Lower extremities with trace edema bilaterally. Data 01/10/25 02:53 01/10/25 08:09 Micro: Microbiology 01/09/25 09:26 Blood Culture - Preliminary Blood NEGATIVE TO DATE 01/09/25 09:22 Blood Culture - Preliminary Blood NEGATIVE TO DATE 01/09/25 10:47 Bacterial Antigens - Final Urine Kidney A&P Assessment and plan 1. Non-ST elevation [place] (NSTEMI): 2. Left ventricular systolic dysfunction (LVSD): 3. Tachycardia: 4. History of bioprosthetic transcatheter aortic valve implantation (REBEKAH): 5. CKD (chronic kidney disease): Plan: It appeared to be in that patient may have type II non-ST elevation PA secondary to urosepsis/tachycardia in the face of reduced creatinine clearance Currently he is in sinus rhythm Continue treating with antibiotics Patient has underlying chronic kidney disease, medicine has held lisinopril On physical examination does not appear to be volume overloaded however if becomes shortness of breath Lasix challenge with 40 mg IV twice daily can be given Once cleared from UTI perspective further plan medical management versus invasive strategy versus stress test to ascertain cause of decreased left ventricular function will be discussed given his advanced age other morbidities and underlying chronic kidney disease. Continue metoprolol which can be uptitrated to 25 twice daily, add aspirin and statin Further plan will be advised as per progress the patient PDMP PDMP Reviewed: Not Reviewed Consult Attestations Medical Necessity Statement: Patient require continuation of hospitalization for above defined care. Coding Level of Care Code Acute Code for [facility] Diagnoses Non-ST elevation [place] (NSTEMI) I21.4 Left ventricular systolic dysfunction (LVSD) I51.89 Tachycardia R00.0 History of bioprosthetic transcatheter aortic valve implantation (REBEKAH) Z95.3 CKD (chronic kidney disease) N18.9
[2025-01-10 16:13] LABS: Troponin T (5th) Once 105 ng/L (0-15)
[2025-01-10 17:19] LABS: C.Diff PCR (Lab) NEGATIVE (Negative)
--- NOTE | 2025-01-10 17:26 | PM.CONSULT ---
Providers/Reason For Consult Consulting Physician/Specialty*: kommana/nephrology Reason for Consult*: Acute kidney injury Attending Physician: Duglas Sharma MD Primary Care Provider: Charli Piña MD History of Present Illness History of Present Illness Ricardo Nelson is a 89 year old male Patient is 89-year-old male with past medical history significant for hypertension hypothyroidism, coronary artery disease history of TAVR indwelling Wang catheter due to obstruction patient is a resident of [facility] presented due to generalized weakness nausea. Further workup has showed potassium of 5.6 and creatinine was 2.1 on presentation. Baseline creatinine seems to be in the 1-1.2 range. UA was consistent with UTI. Patient has chronic indwelling Wang catheter that was recently changed in the first week of December. He was also recently treated with Bactrim for urinary tract infection. Over the course of the next 3 days patient's creatinine continued to get worse up to 2.9 and today creatinine is at 2.7. Also has mild metabolic acidosis on presentation with a bicarb of 19. Abdominal CT has showed that known staghorn calculus. Patient follows with urology as outpatient. . Review of Systems Narrative: Negative Medications/Allergies Home Medications ?Medication ?Instructions ?Recorded ?Confirmed ?Last Taken ?Type aspirin 81 mg tablet,delayed 81 mg PO DAILY 08/20/19 01/08/25 01/08/25 History release acetaminophen 325 mg tablet 650 mg PO QID PRN Pain 07/21/20 01/08/25 09/27/22 History (Tylenol) nitroglycerin 0.4 mg sublingual 0.4 mg sublingual Q5M PRN chest 01/28/21 01/08/25 Unknown History tablet pain levothyroxine 25 mcg tablet See Rx Instructions .Route 03/30/23 01/08/25 01/08/25 08:00 Rx .COMPLEX #90 tabs bisacodyl 10 mg rectal suppository 10 mg HI DAILY PRN constipation 01/24/24 01/08/25 Unknown History (Dulcolax (bisacodyl)) magnesium hydroxide 400 mg/5 mL 30 ml PO BID PRN constipation 01/24/24 01/08/25 Unknown History oral suspension (Milk of Magnesia) sertraline 50 mg tablet (Zoloft) 50 mg PO DAILY 10/30/24 10/15/25 10/14/25 19:00 History lisinopril 40 mg tablet 40 mg PO DAILY #90 tabs 07/30/24 01/08/25 01/08/25 08:00 Rx calcium carbonate 1,000 mg PO DAILY indigestion 01/08/25 01/08/25 01/07/25 History dextromethorphan-guaifenesin 10 10 ml PO Q4H PRN Cough 01/08/25 01/08/25 Unknown History mg-100 mg/5 mL oral liquid (Marcela-Tuartemin DM) ondansetron HCl 4 mg tablet 4 mg PO Q4H PRN Nausea And Vomiting 01/08/25 01/08/25 Unknown History polyethylene glycol 3350 17 17 g PO DAILY PRN constipation 01/08/25 01/08/25 Unknown History gram/dose oral powder (Miralax) sodium phosphates 19 gram-7 118 ml HI DAILY PRN Constipation 01/08/25 01/08/25 Unknown History gram/118 mL enema (Fleet Enema) Allergies Allergy/AdvReac Type Severity Reaction Status Date / Time No Known Allergies Allergy Verified 07/30/24 15:21 Current Medications Generic Name Dose Route Start Last Admin Trade Name Freq PRN Reason Stop Dose Admin Acetaminophen 650 mg 01/08/25 19:38 01/09/25 18:53 Acetaminophen 325 Mg Tablet PO 650 mg Q6H PRN Administration Mild/Mod Pain Or Temp >/= 101 Aspirin 81 mg 01/09/25 05:00 01/10/25 04:35 Aspirin 81 Mg Ec Tablet PO 81 mg DAILY ELIZA Administration Famotidine 20 mg 01/08/25 19:38 01/10/25 04:36 Famotidine 20 Mg/2 Ml Inj IVP 20 mg Q12H ELIZA Administration Heparin Sodium/Sodium Chloride 25,000 unit in 500 mls @ 0 mls/hr 01/10/25 04:45 01/10/25 12:56 Heparin Drip IV 9.43 unit/kg/hr CONT ELIZA 17 mls/hr Protocol Titration Per Protocol Sodium Chloride 1,000 mls @ 75 mls/hr 01/10/25 13:00 01/10/25 13:38 Sodium Chloride 0.45% IV 75 mls/hr .[id number] ELIZA Administration Insulin Human Lispro 0 unit 01/09/25 12:00 01/10/25 11:52 Insulin Lispro 100 Unit/1 Ml SUBCUT Not Given WM&BEDTIME ELIZA Protocol Lactulose 10 gm 01/08/25 19:38 01/09/25 05:06 Lactulose Oral Liq 20 Gm/30 Ml Udc PO 10 gm DAILY PRN Administration Constipation (see protocol) Protocol Levothyroxine Sodium 25 mcg 01/09/25 05:00 01/10/25 04:36 Levothyroxine 25 Mcg Tablet PO 25 mcg DAILY ELIZA Administration Magnesium Hydroxide 30 ml 01/08/25 19:38 01/09/25 05:06 Magnesium Hydroxide 30 Ml Udc PO 30 ml DAILY PRN Administration Constipation (see protocol) Protocol Meropenem 1,000 mg 01/08/25 19:38 01/10/25 09:11 Meropenem 1,000 Mg Sdv IVP 1,000 mg Q12H ELIZA Administration Protocol Metoprolol Tartrate 12.5 mg 01/10/25 05:00 01/10/25 04:36 Metoprolol Tartrate 25 Mg Tablet PO Not Given BID [facility] Morphine Sulfate 2 mg 01/08/25 19:38 01/10/25 02:01 Morphine 4 Mg/Ml Sdv 1 Ml IVP 2 mg Q4H PRN Administration SEVERE PAIN Ondansetron HCl 4 mg 01/08/25 19:38 01/10/25 13:38 Ondansetron 2 Mg/Ml Sdv 2 Ml IVP 4 mg Q6H PRN Administration vomiting, or N/V if npo Sertraline HCl 50 mg 01/09/25 05:00 01/10/25 04:36 Sertraline 50 Mg Tablet PO 50 mg DAILY ELIZA Administration PFSH Acute PFSH: Medical History (Updated 01/10/25 @ 16:45 by Princess Colmenares MD) CKD (chronic kidney disease) Irregularly irregular pulse rhythm Severe aortic valve stenosis Hyperkalemia HALEY (acute kidney injury) Acute exacerbation of CHF (congestive heart failure) Hx of goiter 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 Falls Weakness Urinary tract infection Hypothyroid Nocturia Atherosclerosis of coronary artery Incomplete bladder emptying Hx of carpal tunnel syndrome History of bradycardia Mitral valve prolapse Recurrent UTI History of paroxysmal supraventricular tachycardia Gouty arthritis Goiter Bladder cancer Surgical History History of bladder surgery History of PTCA Hx of CABG H/O heart artery stent 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 S/P TURP (status post transurethral resection of prostate) Family History Father , at age 69 Suicide Mother , at age 89 CAD (coronary artery disease) Diabetes Sister Diabetes Lung disease Brother Diabetes Stroke Denies family history of Clotting disorder Dementia Chronic kidney disease (CKD) Anesthesia complication Bleeding disorder Cancer Social History Smoking and tobacco/nicotine status: tobacco/nicotine user, details unknown Alcohol intake: never Marital status: Current occupational status: retired Vitals/I&O/Wt Last Vital Signs Temp 98.3 F 01/10/25 16:00 Pulse 81 01/10/25 16:00 Resp 28 H 01/10/25 16:00 BP 135/56 01/10/25 16:00 Pulse Ox 92 01/10/25 16:00 O2 Del Method Room Air 01/10/25 16:00 01/10/25 01/10/25 01/10/25 06:59 14:59 22:59 Intake Total 702.5 / 4422.5 1410.133 / 1410.133 50 / 1460.133 Output Total 250 / 700 300 / 300 Balance 452.5 / 3722.5 1110.133 / 1110.133 50 / 1160.133 Weight last 48 hrs Weight 91.1 kg Weight 90.1 kg Weight 88.8 kg Physical Exam Narrative: Patient is awake alert, no acute distress No JVD PERRLA S1-S2 regular rate and rhythm Lungs clear bilaterally Abdomen soft nontender Extremities no edema Skin no rash Data 01/10/25 02:53 01/10/25 08:09 Micro: Microbiology 01/08/25 15:44 Stool Lactoferrin - Final Stool 01/08/25 14:58 Urine Culture - Final Urine,Clean Catch Proteus mirabilis 01/09/25 09:26 Blood Culture - Preliminary Blood NEGATIVE TO DATE 01/09/25 09:22 Blood Culture - Preliminary Blood NEGATIVE TO DATE A&P Assessment and plan 1. Acute kidney injury: Plan: 1. Acute on chronic kidney disease: Creatinine baseline 1.1, currently has HAELY with a creatinine of 2.1 on presentation and 2.7 currently. Etiology likely multifactorial in the setting of ATN due to acute infection, possible Bactrim inhibiting creatinine secretion, and also possible AIN due to presence of urine eosinophils but no fever and no rash. Initial UA showed 1+ protein and 3+ blood but in the setting of chronic Wang. Will repeat UA. - At this time creatinine is stable in the 2.7-2.9 range, we will continue to watch the creatinine for now, can discontinue IV fluids - Avoid IV contrast and follow - If creatinine remains stable, should follow as outpatient for resolution and return of creatinine back to baseline. 2. Hyperkalemia: Potassium was 5.6 on presentation improved now to 5.0, placed on low K diet 3. Metabolic acidosis: Mild, in the setting of HALEY, continue to monitor., Will add a dose of Bicitra. 4. Urinary tract infection, currently on meropenem, cultures showing gram-negative rods 5. Chronic indwelling Wang catheter Patient evaluated using audiovisual cart. Time spent 40 minutes PDMP PDMP Reviewed: Not Reviewed Consult Attestations Medical Necessity Statement: Per medicine team Coding Level of Care Code Acute Code for [facility] Diagnoses Acute kidney injury N17.9
[2025-01-10] MEDS: albumin 25 G/100 ML BAG 60 G IV (18:08)
[2025-01-10 19:52] LABS: Partial Thromboplastin Time 68.0 SECONDS (23.9-36.7)
[2025-01-11] VITALS (7 sets, daily range): BP systolic 132–177; BP diastolic 45–71; PULSE 74–82; RESP 24–28; TEMP 36.5–37.3; O2SAT 91–96
[2025-01-11 01:08] LABS: Hematocrit 29.2 % (37-53); Hemoglobin 9.40 g/dL (11.27-16.99); Mean Corpuscular HGB Conc 32.2 g/dL (30-55); Mean Corpuscular Hemoglobin 30.0 pg (27-33); Mean Corpuscular Volume 93.3 fl (82-101); Nucleated Red Blood Cells % 0 %; Platelet Count 119 10^3/cmm (157-399); Red Blood Count 3.13 10^6/uL (3.85-5.65); White Blood Count 15.37 10^3/uL (3.29-11.43)
[2025-01-11 01:24] LABS: Partial Thromboplastin Time 55.0 SECONDS (23.9-36.7)
[2025-01-11 01:30] LABS: Alanine Aminotransferase 11 U/L (0-41); Albumin Level 3.3 g/dL (3.5-5.2); Alkaline Phosphatase 125 U/L (40-130); Anion Gap 16.6 (5-19); Aspartate Amino Transferase 14 U/L (0-40); Blood Urea Nitrogen 51 mg/dL (8-23); Calcium 7.1 mg/dL (8.5-10.5); Carbon Dioxide 19 mmol/L (22-29); Chloride 104 mmol/L (98-107); Globulin 2.7 g/dL (1.3-4.6); Glucose 123 mg/dL (65-115); Magnesium 2.1 mg/dL (1.7-2.3); Osmolality Calculated 295 mOsm/kg (285-295); Potassium 4.6 mmol/L (3.5-5.1); Sodium 135 mmol/L (136-145); Total Protein 6.0 g/dL (6.6-8.7)
[2025-01-11 01:31] LABS: Creatinine Clr Calc Pharmacy 18.3980
[2025-01-11] MEDS: heparin 5,000 unit/mL INJ 1 mL IVP (01:37)
[2025-01-11] MEDS: albumin 25 G/100 ML BAG 60 G IV ×2 (05:08→16:21)
[2025-01-11] MEDS: heparin drip 25,000 UNIT/500 ML PREMIX 19 UNIT IV (05:35)
[2025-01-11 06:31] LABS: Procalcitonin > 100.00 ng/mL (0-0.5)
[2025-01-11] MEDS: meropenem 1,000 mg SDV 1000 MG IVP ×2 (07:59→19:57)
[2025-01-11 08:37] LABS: Partial Thromboplastin Time 39.1 SECONDS (23.9-36.7)
--- NOTE | 2025-01-11 10:15 | P.PN_ITS ---
Subjective 2 Subjective: Denies SOB, CP, palpitaitons. Vitals/I&O/Wt Last Vital Signs Temp 97.7 F 01/11/25 07:16 Pulse 81 01/11/25 07:16 Resp 27 H 01/11/25 07:16 BP 177/55 01/11/25 07:16 Pulse Ox 93 01/11/25 07:16 O2 Del Method Room Air 01/11/25 07:16 01/10/25 01/11/25 01/11/25 22:59 06:59 14:59 Intake Total 270 / 9861.308 1205.95 / 3091.083 486.25 / 486.25 Output Total 250 / 550 150 / 700 Balance 20 / 2483.035 4836.95 / 2391.083 486.25 / 486.25 Weight last 48 hrs Weight 207 lb 10.807 oz Weight 200 lb 13.458 oz Physical Exam 2 Narrative: General: In no acute distress Neck: No jugular venous distention Heart: Normal S1 and S2 with a regular rate and rhythm, no cardiac murmurs Lungs: Normal respiratory effort with no use of intercostal muscles, clear lungs sounds to auscultation Extremities: No lower extremity edema Neuro: Alert and oriented Urinary Catheter Management: Wang: Cath Placed During This Visit: no Reason for Continuing Indwelling Catheter: Chronic Indwelling Urinary Catheter on Admission Data 01/11/25 00:59 01/11/25 00:59 Micro: Microbiology 01/08/25 15:44 Stool Lactoferrin - Final Stool 01/08/25 14:58 Urine Culture - Final Urine,Clean Catch Proteus mirabilis 01/09/25 09:26 Blood Culture - Preliminary Blood NEGATIVE TO DATE 01/09/25 09:22 Blood Culture - Preliminary Blood NEGATIVE TO DATE A&P Assessment and plan 1. Non-ST elevation [place] (NSTEMI): 2. Left ventricular systolic dysfunction (LVSD): 3. Tachycardia: 4. History of bioprosthetic transcatheter aortic valve implantation (REBEKAH): 5. HALEY (acute kidney injury): Plan: Having no angina or CHF symptoms despite EF 40% continue ASA, metoprolol, and start atorvastatin 20mg qhs Renal function worsening - Renal on board Uncontrolled HTN - ok to allow some mild HTN in setting of HALEY. Avoid drop in BP that could worsen HALEY Avoid all nephrotoxins No need for diuretic at this time from cardiac standpoint Eventual nonurgent cardiomyopathy work up and more GDMT therapy one urosepsis and renal function more stable PDMP PDMP Reviewed: Not Reviewed Attestations 2 Medical Necessity Statement*: needs 2 more midnights of hospitalization treatment for Type II NSTEMI and urosepsis/HALEY Coding Level of Care Code Acute Code for Chg Fwd Diagnoses Non-ST elevation [place] (NSTEMI) I21.4 Left ventricular systolic dysfunction (LVSD) I51.89 Tachycardia R00.0 History of bioprosthetic transcatheter aortic valve implantation (REBEKAH) Z95.3 HALEY (acute kidney injury) N17.9
--- NOTE | 2025-01-11 11:35 | PM.PN ---
Subjective Subjective: poor PO intake Medications: Reviewed: Yes Vitals/I&O/Wt Last Vital Signs Temp 98.4 F 01/11/25 11:18 Pulse 81 01/11/25 11:18 Resp 28 H 01/11/25 11:18 BP 143/59 01/11/25 11:18 Pulse Ox 95 01/11/25 11:18 O2 Del Method Nasal Cannula 01/11/25 11:18 O2 Flow Rate 2 01/11/25 11:18 01/10/25 01/11/25 01/11/25 22:59 06:59 14:59 Intake Total 270 / 1336.371 0927.95 / 3091.083 486.25 / 486.25 Output Total 250 / 550 150 / 700 Balance 20 / 8944.112 8110.95 / 2391.083 486.25 / 486.25 Weight last 48 hrs Weight 94.2 kg Weight 91.1 kg Physical Exam Narrative: Patient is awake alert, no acute distress No JVD PERRLA S1-S2 regular rate and rhythm Lungs clear bilaterally Abdomen soft nontender Extremities no edema Skin no rash Urinary Catheter Management: Wang: Cath Placed During This Visit: no Reason for Continuing Indwelling Catheter: Chronic Indwelling Urinary Catheter on Admission Data 01/11/25 00:59 01/11/25 00:59 Micro: Microbiology 01/08/25 15:44 Stool Lactoferrin - Final Stool 01/08/25 14:58 Urine Culture - Final Urine,Clean Catch Proteus mirabilis 01/09/25 09:26 Blood Culture - Preliminary Blood NEGATIVE TO DATE 01/09/25 09:22 Blood Culture - Preliminary Blood NEGATIVE TO DATE A&P Assessment and plan 1. Acute kidney injury: Plan: 1. Acute on chronic kidney disease: Creatinine baseline 1.1, currently has HALEY with a creatinine of 2.1 on presentation and 2.7 currently. Etiology likely multifactorial in the setting of ATN due to acute infection, possible Bactrim inhibiting creatinine secretion, and also possible AIN due to presence of urine eosinophils but no fever and no rash. Initial UA showed 1+ protein and 3+ blood but in the setting of chronic Wang. Will repeat UA. - Cr worsened today , likely due to prerenal/poor intake , resume IVFs , we will continue to watch the creatinine for now, - If no improvement , will consider steroids for possible AIN - Avoid IV contrast and follow - If creatinine remains stable, should follow as outpatient for resolution and return of creatinine back to baseline. 2. Hyperkalemia: Potassium was 5.6 on presentation improved now to 5.0, placed on low K diet 3. Metabolic acidosis: Mild, in the setting of HALEY, continue to monitor., Will add a dose of Bicitra. 4. Urinary tract infection, currently on meropenem, cultures showing gram-negative rods 5. Chronic indwelling Wang catheter Patient evaluated using audiovisual cart. Time spent 40 minutes PDMP PDMP Reviewed: Not Reviewed Attestations Medical Necessity Statement*: per tonimn Coding Level of Care Code Acute Code for [facility] Diagnoses Acute kidney injury N17.9
--- NOTE | 2025-01-11 12:55 | P.PN_ITS ---
Subjective 2 Subjective: Patient seen in room being fed by staff. Patient tolerated liquids. Only tolerating yogurt. Was unable to eat the regular diet needs to be pur?ed Vitals/I&O/Wt Last Vital Signs Temp 98.4 F 01/11/25 11:18 Pulse 81 01/11/25 11:18 Resp 28 H 01/11/25 11:18 BP 143/59 01/11/25 11:18 Pulse Ox 95 01/11/25 11:18 O2 Del Method Nasal Cannula 01/11/25 11:18 O2 Flow Rate 2 01/11/25 11:18 01/10/25 01/11/25 01/11/25 22:59 06:59 14:59 Intake Total 270 / 9087.930 2435.95 / 3191.083 486.25 / 486.25 Output Total 250 / 550 150 / 700 Balance 20 / 2561.296 7341.95 / 2491.083 486.25 / 486.25 Weight last 48 hrs Weight 94.2 kg Weight 91.1 kg Physical Exam 2 Narrative: Leaning to the left side barely opens eyes, limited communication Heart regular normal S1-S2 no loud murmur Lungs clear to auscultation without wheezes rales or rhonchi Abdomen soft nontender nondistended positive bowel sounds Extremities no clubbing cyanosis or edema Urinary Catheter Management: Wang: Cath Placed During This Visit: no Reason for Continuing Indwelling Catheter: Chronic Indwelling Urinary Catheter on Admission Data 01/11/25 00:59 01/11/25 00:59 Micro: Microbiology 01/08/25 15:44 Stool Lactoferrin - Final Stool 01/08/25 14:58 Urine Culture - Final Urine,Clean Catch Proteus mirabilis 01/09/25 09:26 Blood Culture - Preliminary Blood NEGATIVE TO DATE 01/09/25 09:22 Blood Culture - Preliminary Blood NEGATIVE TO DATE A&P Assessment and plan 1. Complicated UTI (urinary tract infection): Completed in setting of chronic indwelling Wang catheter. Has been treated with Bactrim recently. UA concerning for UTI with more than 100 RBC and WBC with 3+ bacteria. urine culture growing gram-negative rods. MRSA swab pending. Appreciate positive trend and procalcitonin. Procalcitonin more than 100 today. High concern for UTI with resistant bacteria. Started on IV meropenem, yesterday 01/10/2025 de-escalate as per culture sensitivities. Will plan to finish a 7-day course. Wang catheter has been changed recently as per family member. 2. Acute kidney injury: Baseline creatinine 1. Creatinine worsened to 2.5. Does have mild uremia with BUN up to 40. Most likely in setting of home use of lisinopril, dehydration because of poor oral intake along with recent use of Bactrim. Currently associated with hyperkalemia. Medical reconciliation done for nephrotoxic drugs. Holding off on home dose of lisinopril. Bactrim discontinued. Discussed with nephrology today 01/11/2025. She had stopped IV fluids overnight. She now will resume. She does not think it is due to Bactrim. She recommends follow-up BMP this afternoon. Could consider steroids however doubt long-term plan would include kidney biopsy and treatment for AIN. 3. Acute hyperkalemia: Acute treatment in the ER with sodium bicarbonate, albuterol and Kayexalate. Repeat potassium level at 8 PM. Resolved and then elevated on 01/10/2025 and given a dose of Kayexalate. As well as D10 and 10 units of insulin. Potassium 4.6 today 4. Benign essential HTN: Off home dose of lisinopril. BP as high as 177 systolic. 5. Atherosclerosis of [place] coronary artery of [place] heart without angina pectoris: Continue with home dose of aspirin. 6. History of transcatheter aortic valve replacement (TAVR): Last echocardiogram from January 2024 showed an normal EF with normal functioning bioprosthetic aortic valve. 7. Failure of outpatient treatment: Plan: worsening renal function. As per discussion with nephrology resume fluids. Would like to discuss with family. Previous hospitalist attempted to call yesterday no result. I will attempt as well PDMP PDMP Reviewed: Not Reviewed Attestations 2 Medical Necessity Statement*: Requires further hospitalization for management of HALEY with hyperkalemia, complicated UTI, diarrhea while C. difficile ruled out, non-ST elevation [place] versus demand ischemia Coding Level of Care Code Acute Code for Chg Fwd Diagnoses Complicated UTI (urinary tract infection) N39.0 Acute kidney injury N17.9 Acute hyperkalemia E87.5 Benign essential HTN I10 Atherosclerosis of [place] coronary artery of [place] heart without angina pectoris I25.10 Coronary Disease-Associated Artery/Lesion type: [place] artery History of transcatheter aortic valve replacement (TAVR) Z95.2 Failure of outpatient treatment Z78.9
[2025-01-11 15:49] LABS: Partial Thromboplastin Time 50.0 SECONDS (23.9-36.7)
[2025-01-11 15:59] LABS: Anion Gap 18.2 (5-19); Blood Urea Nitrogen 54 mg/dL (8-23); Calcium 7.1 mg/dL (8.5-10.5); Carbon Dioxide 16 mmol/L (22-29); Chloride 103 mmol/L (98-107); Glucose 170 mg/dL (65-115); Osmolality Calculated 295 mOsm/kg (285-295); Potassium 4.2 mmol/L (3.5-5.1); Sodium 133 mmol/L (136-145)
[2025-01-11 16:00] LABS: Creatinine Clr Calc Pharmacy 18.6925
[2025-01-11] MEDS: methylPREDNISolone sod succ 125 mg/2 mL INJ 60 MG IVP (16:20)
[2025-01-11] MEDS: morphine 4 mg/mL SDV 1 mL 2 MG IVP (19:57)
[2025-01-12] VITALS: BP 160/53; PULSE 67; RESP 23; O2SAT 94
[2025-01-12 04:00] VITALS: BP 152/58; PULSE 78; RESP 20; TEMP 36.9; O2SAT 95
[2025-01-12] MEDS: methylPREDNISolone sod succ 125 mg/2 mL INJ 60 MG IVP (04:22)
[2025-01-12] MEDS: albumin 25 G/100 ML BAG 60 G IV ×2 (04:26→16:06)
[2025-01-12 07:08] VITALS: BP 151/68; PULSE 77; RESP 22; TEMP 36.4; O2SAT 96
[2025-01-12] MEDS: meropenem 1,000 mg SDV 1000 MG IVP (08:38)
[2025-01-12 09:35] LABS: Hematocrit 32.5 % (37-53); Hemoglobin 10.40 g/dL (11.27-16.99); Mean Corpuscular HGB Conc 32.0 g/dL (30-55); Mean Corpuscular Hemoglobin 31.0 pg (27-33); Mean Corpuscular Volume 97.0 fl (82-101); Nucleated Red Blood Cells % 0 %; Platelet Count 114 10^3/cmm (157-399); Red Blood Count 3.35 10^6/uL (3.85-5.65); White Blood Count 10.29 10^3/uL (3.29-11.43)
[2025-01-12 09:51] LABS: Anion Gap 24.1 (5-19); Blood Urea Nitrogen 58 mg/dL (8-23); Calcium 7.5 mg/dL (8.5-10.5); Carbon Dioxide 15 mmol/L (22-29); Chloride 102 mmol/L (98-107); Creatinine Clr Calc Pharmacy 22.3438; Glucose 221 mg/dL (65-115); Osmolality Calculated 307 mOsm/kg (285-295); Potassium 4.1 mmol/L (3.5-5.1); Sodium 137 mmol/L (136-145)
--- NOTE | 2025-01-12 10:36 | P.PN_ITS ---
Subjective 2 Subjective: poor po intake Medications: Reviewed: Yes Vitals/I&O/Wt Last Vital Signs Temp 97.6 F 01/12/25 07:08 Pulse 77 01/12/25 07:08 Resp 22 H 01/12/25 07:08 BP 151/68 01/12/25 07:08 Pulse Ox 96 01/12/25 07:08 O2 Del Method Nasal Cannula 01/12/25 07:08 O2 Flow Rate 1 01/12/25 07:08 01/11/25 01/12/25 01/12/25 22:59 06:59 14:59 Intake Total 1840 / 2566.25 1460 / 4026.25 480 / 480 Output Total 300 / 550 200 / 750 Balance 154 / 2016. 1260 / 3276.25 480 / 480 Weight last 48 hrs Weight 94.7 kg Weight 94.2 kg Physical Exam 2 Narrative: Patient is awake alert, no acute distress No JVD PERRLA S1-S2 regular rate and rhythm Lungs clear bilaterally Abdomen soft nontender Extremities no edema Skin no rash Urinary Catheter Management: Wang: Cath Placed During This Visit: no Reason for Continuing Indwelling Catheter: Accurate Measurement of Urinary Output in Critically Ill Patients Data 01/12/25 09:12 01/12/25 09:12 A&P Assessment and plan 1. Acute kidney injury: Plan: 1. Acute on chronic kidney disease: Creatinine baseline 1.1, currently has HALEY with a creatinine of 2.1 on presentation and 2.7 currently. Etiology likely multifactorial in the setting of ATN due to acute infection, possible Bactrim inhibiting creatinine secretion, and also possible AIN due to presence of urine eosinophils but no fever and no rash. Initial UA showed 1+ protein and 3+ blood but in the setting of chronic Wang. Will repeat UA. - Cr worsened yesterday , likely due to prerenal/poor intake , resumed IVFs , also added steroids for possible AIN , cr better today - Avoid IV contrast and follow - If creatinine remains stable, should follow as outpatient for resolution and return of creatinine back to baseline. 2. Hyperkalemia: Potassium was 5.6 on presentation improved now to 5.0, placed on low K diet 3. Metabolic acidosis: Mild, in the setting of HALEY, continue to monitor., Will add a dose of Bicitra. 4. Urinary tract infection, currently on meropenem, cultures showing gram- negative rods 5. Chronic indwelling Wang catheter Patient evaluated using audiovisual cart. Time spent 40 minutes PDMP PDMP Reviewed: Not Reviewed Attestations 2 Medical Necessity Statement*: per bisi Coding Level of Care Code Acute Code for Chg Fwd Diagnoses Acute kidney injury N17.9
[2025-01-12 11:01] VITALS: BP 150/67; PULSE 79; RESP 24; TEMP 36.4; O2SAT 96
[2025-01-12] MEDS: citric acid-sodium citrate 30 mL UDC 60 ML PO (11:02)
--- NOTE | 2025-01-12 11:02 | P.PN_ITS ---
Subjective 2 Subjective: Denies SOB and CP Vitals/I&O/Wt Last Vital Signs Temp 97.6 F 01/12/25 11:01 Pulse 79 01/12/25 11:01 Resp 24 H 01/12/25 11:01 BP 150/67 01/12/25 11:01 Pulse Ox 96 01/12/25 11:01 O2 Del Method Room Air 01/12/25 11:01 O2 Flow Rate 1 01/12/25 07:08 01/11/25 01/12/25 01/12/25 22:59 06:59 14:59 Intake Total 1840 / 2566.25 1460 / 4026.25 480 / 480 Output Total 300 / 550 200 / 750 Balance 1540 / 2016.25 1260 / 3276.25 480 / 480 Weight last 48 hrs Weight 208 lb 12.444 oz Weight 207 lb 10.807 oz Physical Exam 2 Narrative: General: In no acute distress Neck: No jugular venous distention Heart: Normal S1 and S2 with a regular rate and rhythm, no cardiac murmurs Lungs: Normal respiratory effort with no use of intercostal muscles, clear lungs sounds to auscultation Extremities: No lower extremity edema Neuro: Alert and oriented Urinary Catheter Management: Wang: Cath Placed During This Visit: no Reason for Continuing Indwelling Catheter: Accurate Measurement of Urinary Output in Critically Ill Patients Data 01/12/25 09:12 01/12/25 09:12 Other data: Echo 01/10/25: Moderately increased left ventricular cavity size. Severely decreased left ventricular systolic function. Left ventricular ejection fraction is estimated at 30 %. Global left ventricular hypokinesis with septal bounce which could be secondary to interventricular conduction delay. Grade I/IV diastolic dysfunction (abnormal relaxation filling pattern), normal to mildly elevated filling pressures. Bioprosthetic aortic valve is sitting in normal position without significant stenosis, there appeared to be mild possible paravalvular leak, WILFREDO is a better modality to assess it for further detail if indicated Moderate pulmonary valve regurgitation. There is no pericardial effusion. A&P Assessment and plan 1. Non-ST elevation [place] (NSTEMI): Suspect Type II NSTEMI in setting of urosepsis 2. Left ventricular systolic dysfunction (LVSD): 3. Tachycardia: 4. History of bioprosthetic transcatheter aortic valve implantation (REBEKAH): 5. HALEY (acute kidney injury): Plan: Having no angina or CHF symptoms despite EF 30% Appears more alert and stronger overall today Renal function mildly improved today Uncontrolled HTN - ok to allow some mild HTN in setting of HALEY. Continue current medical regimen Avoid all nephrotoxins No need for diuretic at this time from cardiac standpoint Eventual nonurgent cardiomyopathy work up and more GDMT therapy once renal function improves further PDMP PDMP Reviewed: Not Reviewed Attestations 2 Medical Necessity Statement*: needs 2 more midnights of stay due to sepsis Coding Level of Care Code Acute Code for Chg Fwd Diagnoses Non-ST elevation [place] (NSTEMI) I21.4 Left ventricular systolic dysfunction (LVSD) I51.89 Tachycardia R00.0 History of bioprosthetic transcatheter aortic valve implantation (REBEKAH) Z95.3 HALEY (acute kidney injury) N17.9
--- NOTE | 2025-01-12 11:46 | P.PN_ITS ---
Vitals/I&O/Wt Last Vital Signs Temp 97.6 F 01/12/25 11:01 Pulse 79 01/12/25 11:01 Resp 24 H 01/12/25 11:01 BP 150/67 01/12/25 11:01 Pulse Ox 96 01/12/25 11:01 O2 Del Method Room Air 01/12/25 11:01 O2 Flow Rate 1 01/12/25 07:08 01/11/25 01/12/25 01/12/25 22:59 06:59 14:59 Intake Total 1840 / 2566.25 1460 / 4026.25 480 / 480 Output Total 300 / 550 200 / 750 Balance 1540 / 2015. 1260 / 3276.25 480 / 480 Weight last 48 hrs Weight 208 lb 12.444 oz Weight 207 lb 10.807 oz Physical Exam 2 Urinary Catheter Management: Wang: Cath Placed During This Visit: no Reason for Continuing Indwelling Catheter: Accurate Measurement of Urinary Output in Critically Ill Patients Data 01/12/25 09:12 01/12/25 09:12 A&P PDMP PDMP Reviewed: Not Reviewed Coding Level of Care Code Acute Code for Chg Fwd
--- NOTE | 2025-01-12 13:04 | PM.PN ---
Subjective Subjective: Patient awake and alert today. No family at the bedside today. Patient tells me he recognizes me and knows that I am a doctor. He also reports that he knows his main issue is his kidneys. He states that sometimes his breathing is a little short. Vitals/I&O/Wt Last Vital Signs Temp 97.6 F 01/12/25 11:01 Pulse 79 01/12/25 11:01 Resp 24 H 01/12/25 11:01 BP 150/67 01/12/25 11:01 Pulse Ox 96 01/12/25 11:01 O2 Del Method Room Air 01/12/25 11:01 O2 Flow Rate 1 01/12/25 07:08 01/11/25 01/12/25 01/12/25 22:59 06:59 14:59 Intake Total 1840 / 2566.25 1460 / 4026.25 960 / 960 Output Total 300 / 550 200 / 750 Balance 1540 / 2016.25 1260 / 3276.25 960 / 960 Weight last 48 hrs Weight 94.7 kg Weight 94.2 kg Physical Exam Narrative: Awake sitting more upright in bed today. Eyes open. Communicative. Heart regular normal S1-S2 no loud murmur Lungs overall diminished. There is a slight expiratory squeak. Abdomen soft nontender nondistended positive bowel sounds Extremities no significant edema Urinary Catheter Management: Wang: Cath Placed During This Visit: no Reason for Continuing Indwelling Catheter: Accurate Measurement of Urinary Output in Critically Ill Patients Data 01/12/25 09:12 01/12/25 09:12 A&P Assessment and plan 1. Complicated UTI (urinary tract infection): Patient has been on meropenem. Culture and sensitivity show Proteus mirabilis. There is fair sensitivity. However given the possibility of AIN will avoid cephalosporins and penicillins. Therefore we will prescribe levofloxacin. Will ask pharmacy to dose given creatinine clearance. 2. Acute kidney injury: Baseline creatinine 1. Creatinine worsened to 3.1. Most likely multifactorial with lisinopril, dehydration because of poor oral intake and recent use of Bactrim. Currently associated with hyperkalemia. Medical reconciliation done for nephrotoxic drugs. Holding off on home dose of lisinopril. Bactrim discontinued. Yesterday repeat BMP showed creatinine stable at 3.1. Steroids were initiated at 1 mg/kg/day. Today serum creatinine is 2.6. I question if serum creatinine was already on its way down despite the steroid treatment. I discussed this with the daughter. The steroids seem to be helping his alertness and mood. Plan for short-term course of steroids. As per discussion yesterday patient is not interested in renal biopsy or further aggressive measures. 3. Left ventricular systolic dysfunction (LVSD): As documented below last echo January 2024 showed normal EF. Echo on this admission shows: Left Ventricle Moderately increased left ventricular cavity size. Severely decreased left ventricular systolic function. Left ventricular ejection fraction is estimated at 30 %. Global left ventricular hypokinesis with septal bounce which could be secondary to interventricular conduction delay. Grade I/IV diastolic dysfunction (abnormal relaxation filling pattern), normal to mildly elevated filling pressures. 4. Acute hyperkalemia: Acute treatment in the ER with sodium bicarbonate, albuterol and Kayexalate. Repeat potassium level at 8 PM. Resolved and then elevated on 01/10/2025 and given a dose of Kayexalate. As well as D10 and 10 units of insulin. Potassium now normalized 5. Benign essential HTN: Off home dose of lisinopril. BP as high as 177 systolic. Allow permissive hypertension in setting of acute kidney injury. Patient has been started on metoprolol in the hospital 6. Atherosclerosis of [place] coronary artery of [place] heart without angina pectoris: Continue with home dose of aspirin. 7. History of transcatheter aortic valve replacement (TAVR): Last echocardiogram from January 2024 showed an normal EF with normal functioning bioprosthetic aortic valve. 8. Failure of outpatient treatment: Plan: Discussed with cardiology today. Appreciate their assistance. I conveyed to cardiology the discussion I had with the patient's daughter yesterday. Patient does not wish to pursue aggressive therapy and therefore no stress test or heart cath will be ordered per his wishes. Medical management as aggressively as able given the acute kidney injury. Will need to hold off on lisinopril. He has been started on a beta-nabila. Continue aspirin. I would hold off on statin therapy given his age comorbidities and his wishes. Noted nephrology input today providing a dose of citric acid. As above changed to oral antibiotics for UTI. Will observe for another 24 hours. Start to wean steroids. Plan for short course approximately 5-day steroid burst. He can follow-up as an outpatient with labs. Patient daughter and other family members should meet with long term to discuss no escalation of care and more conservative management at the long term. PDMP PDMP Reviewed: Not Reviewed Attestations Medical Necessity Statement*: Requires further hospitalization for management of HALEY, newly diagnosed CHF Coding Level of Care Code Acute Code for Chg Fwd Diagnoses Complicated UTI (urinary tract infection) N39.0 Acute kidney injury N17.9 Left ventricular systolic dysfunction (LVSD) I51.89 Acute hyperkalemia E87.5 Benign essential HTN I10 Atherosclerosis of [place] coronary artery of [place] heart without angina pectoris I25.10 Coronary Disease-Associated Artery/Lesion type: [place] artery History of transcatheter aortic valve replacement (TAVR) Z95.2 Failure of outpatient treatment Z78.9
[2025-01-12 15:02] VITALS: BP 142/89; PULSE 78; RESP 27; TEMP 36.4; O2SAT 97
[2025-01-12] MEDS: methylPREDNISolone sod succ 125 mg/2 mL INJ 40 MG IVP (16:05)
[2025-01-12 19:34] VITALS: BP 155/72; PULSE 79; RESP 29; TEMP 36.4; O2SAT 94
[2025-01-13] VITALS (8 sets, daily range): BP systolic 130–167; BP diastolic 57–85; PULSE 61–91; RESP 9–27; TEMP 36.1–36.7; O2SAT 93–96
[2025-01-13] MEDS: methylPREDNISolone sod succ 125 mg/2 mL INJ 40 MG IVP ×2 (05:36→17:39)
[2025-01-13] MEDS: albumin 25 G/100 ML BAG 60 G IV ×2 (06:23→17:38)
[2025-01-13] MEDS: morphine 4 mg/mL SDV 1 mL 2 MG IVP (10:02)
[2025-01-13 10:16] LABS: Anion Gap 17.6 (5-19); Blood Urea Nitrogen 68 mg/dL (8-23); Calcium 7.4 mg/dL (8.5-10.5); Carbon Dioxide 20 mmol/L (22-29); Chloride 101 mmol/L (98-107); Creatinine Clr Calc Pharmacy 24.6229; Glucose 187 mg/dL (65-115); Osmolality Calculated 305 mOsm/kg (285-295); Potassium 3.6 mmol/L (3.5-5.1); Sodium 135 mmol/L (136-145)
--- NOTE | 2025-01-13 10:35 | PC.SOCIAL ---
IMM Update pg 2 of IMM Updated and reviewed w/ patient. Copy provided and copy dated, initialed and placed in chart.
--- NOTE | 2025-01-13 11:13 | PC.NURSE ---
per Dr Ballard decrease IV fluid to 50ml/hr.
--- NOTE | 2025-01-13 14:41 | P.PN_ITS ---
Subjective 2 Subjective: no new c/o Medications: Reviewed: Yes Vitals/I&O/Wt Last Vital Signs Temp 96.9 F L 01/13/25 11:25 Pulse 70 01/13/25 11:25 Resp 23 H 01/13/25 11:25 BP 167/69 01/13/25 11:25 Pulse Ox 93 01/13/25 11:25 O2 Del Method Room Air 01/13/25 11:25 O2 Flow Rate 1 01/12/25 07:08 01/12/25 01/13/25 01/13/25 22:59 06:59 14:59 Intake Total 1580 / 2540 1580 / 1580 Output Total 150 / 400 400 / 800 Balance 1430 / 2140 -400 / 1740 1580 / 1580 Weight last 48 hrs Weight 98.1 kg Weight 98.1 kg Weight 94.7 kg Physical Exam 2 Narrative: Patient is awake alert, no acute distress No JVD PERRLA S1-S2 regular rate and rhythm Lungs clear bilaterally Abdomen soft nontender Extremities no edema Skin no rash Urinary Catheter Management: Wang: Cath Placed During This Visit: no Reason for Continuing Indwelling Catheter: Accurate Measurement of Urinary Output in Critically Ill Patients Data 01/12/25 09:12 01/13/25 09:27 A&P Assessment and plan 1. Acute kidney injury: Plan: 1. Acute on chronic kidney disease: Creatinine baseline 1.1, currently has HALEY with a creatinine of 2.1 on presentation and 2.7 currently. Etiology likely multifactorial in the setting of ATN due to acute infection, possible Bactrim inhibiting creatinine secretion, and also possible AIN due to presence of urine eosinophils but no fever and no rash. Initial UA showed 1+ protein and 3+ blood but in the setting of chronic Wang. Will repeat UA. - Cr stable , on steroids for possible AIN , plan for short course strroids and follow up labs as out pt - Avoid IV contrast and follow - If creatinine remains stable, should follow as outpatient for resolution of HALEY 2. Hyperkalemia: Potassium was 5.6 on presentation improved now , placed on low K diet 3. Metabolic acidosis: Mild, in the setting of HALEY, continue to monitor., S/P of [place]. 4. Urinary tract infection, currently on meropenem, cultures showing gram- negative rods 5. Chronic indwelling Wang catheter Pt and family wishes to persue conservative measures Patient evaluated using audiovisual cart. Time spent 40 minutes PDMP PDMP Reviewed: Not Reviewed Attestations 2 Medical Necessity Statement*: per bisi Coding Level of Care Code Acute Code for Chg Fwd Diagnoses Acute kidney injury N17.9
--- NOTE | 2025-01-13 17:24 | PM.PN ---
Subjective Subjective: 89-year-old male states he had nausea vomiting on admission now improved. He is companied by his sister Chitra Baez. Patient is from [facility]. His has dementia and also lives at [facility]. Per H&P patient had chronic indwelling Wang catheter, coronary artery disease, TAVR, hypertension, hypothyroidism and had weakness nausea shivering date of admission with left lower quadrant pain. Patient had frequent episodes of bladder spasms for which his Wang catheter was changed twice in the preceding 3 weeks and concomitantly treated with Bactrim. He was found to have acute kidney injury with creatinine rise to 2.1 Patient has been seen by Dr. Latonia St of nephrology for acute kidney injury possibly acute interstitial nephritis and started on a short course of steroids. Creatinine has improved potassium elevation resolved Medications: Reviewed: Yes Vitals/I&O/Wt Last Vital Signs Temp 97.6 F 01/13/25 15:47 Pulse 91 01/13/25 15:47 Resp 27 H 01/13/25 15:47 BP 146/85 01/13/25 15:47 Pulse Ox 96 01/13/25 15:47 O2 Del Method Room Air 01/13/25 11:25 O2 Flow Rate 1 01/12/25 07:08 01/13/25 01/13/25 01/13/25 06:59 14:59 22:59 Intake Total 1580 / 1580 Output Total 400 / 800 400 / 400 Balance -400 / 1740 1580 / 1580 -400 / 1180 Weight last 48 hrs Weight 98.1 kg Weight 98.1 kg Weight 94.7 kg Physical Exam Narrative: General well-developed well-nourished obese male in no acute cardiopulmonary stress CV regular rate and rhythm Lungs clear to auscultation with diminished breath sounds at bases Abdomen positive bowel tones soft nontender Calves no tenderness cords pedal edema Urinary Catheter Management: Wang: Cath Placed During This Visit: no Reason for Continuing Indwelling Catheter: Accurate Measurement of Urinary Output in Critically Ill Patients Data 01/12/25 09:12 01/13/25 09:27 Echo: My impression: Moderately increased left ventricular cavity size. Severely decreased left ventricular systolic function. Left ventricular ejection fraction is estimated at 30 %. Global left ventricular hypokinesis with septal bounce which could be secondary to interventricular conduction delay. Grade I/IV diastolic dysfunction (abnormal relaxation filling pattern), normal to mildly elevated filling pressures. Bioprosthetic aortic valve is sitting in normal position without significant stenosis, there appeared to be mild possible paravalvular leak, WILFREDO is a better modality to assess it for further detail if indicated Moderate pulmonary valve regurgitation. There is no pericardial effusion. Right atrial pressure is around 15 mm of mercury. A&P Assessment and plan 1. Complicated UTI (urinary tract infection): Patient has been on pharmacy dosed Levaquin 750 mg every 48 hours culture and sensitivity showed Proteus mirabilis. There is fair sensitivity. However given the possibility of AIN will avoid cephalosporins and penicillins. Therefore we will prescribe levofloxacin. Will ask pharmacy to dose given creatinine clearance. 2. Acute kidney injury: Baseline creatinine 1. Creatinine worsened to 3.1. Most likely multifactorial with lisinopril, dehydration because of poor oral intake and recent use of Bactrim. Currently associated with hyperkalemia. Medical reconciliation done for nephrotoxic drugs. Holding off on home dose of lisinopril. Bactrim discontinued. Yesterday repeat BMP showed creatinine stable at 3.1. Steroids were initiated at 1 mg/kg/day. Today serum creatinine is 2.6. I question if serum creatinine was already on its way down despite the steroid treatment. I discussed this with the daughter. The steroids seem to be helping his alertness and mood. Plan for short-term course of steroids. With discharge tomorrow after labs back to [facility] As per discussion yesterday patient is not interested in renal biopsy or further aggressive measures. 3. Left ventricular systolic dysfunction (LVSD): As documented below last echo January 2024 showed normal EF. Echo on this admission shows: Left Ventricle Moderately increased left ventricular cavity size. Severely decreased left ventricular systolic function. Left ventricular ejection fraction is estimated at 30 %. Global left ventricular hypokinesis with septal bounce which could be secondary to interventricular conduction delay. Grade I/IV diastolic dysfunction (abnormal relaxation filling pattern), normal to mildly elevated filling pressures. 4. Acute hyperkalemia: n. Potassium now normalized. BMP in the morning anticipate discharge at that time 5. Benign essential HTN: Off home dose of lisinopril. BP as high as 177 systolic. Allow permissive hypertension in setting of acute kidney injury. Patient has been started on metoprolol in the hospital 6. Atherosclerosis of [place] coronary artery of [place] heart without angina pectoris: Continue with home dose of aspirin. 7. History of transcatheter aortic valve replacement (TAVR): Last echocardiogram from January 2024 showed an normal EF with normal functioning bioprosthetic aortic valve. 8. Failure of outpatient treatment: Plan: Conservative treatment anticipate discharge tomorrow PDMP PDMP Reviewed: Not Reviewed Attestations Medical Necessity Statement*: Patient observed 1 more night for response to steroids and current dose of Levaquin. If creatinine stable or improving home tomorrow Coding Level of Care Code 19338 Diagnoses Complicated UTI (urinary tract infection) N39.0 Acute kidney injury N17.9 Left ventricular systolic dysfunction (LVSD) I51.89 Acute hyperkalemia E87.5 Benign essential HTN I10 Atherosclerosis of [place] coronary artery of [place] heart without angina pectoris I25.10 Coronary Disease-Associated Artery/Lesion type: [place] artery History of transcatheter aortic valve replacement (TAVR) Z95.2 Failure of outpatient treatment Z78.9 Time Spent (min) 35
[2025-01-14] VITALS: BP 156/70; PULSE 69; RESP 22; TEMP 36.9; O2SAT 94
[2025-01-14 03:06] VITALS: BP 175/60; PULSE 69; RESP 18; TEMP 37; O2SAT 94
[2025-01-14] MEDS: methylPREDNISolone sod succ 125 mg/2 mL INJ 40 MG IVP (04:59)
[2025-01-14] MEDS: albumin 25 G/100 ML BAG 100 G IV (05:00)
[2025-01-14 05:49] LABS: Anion Gap 21.6 (5-19); Blood Urea Nitrogen 71 mg/dL (8-23); Calcium 7.8 mg/dL (8.5-10.5); Carbon Dioxide 19 mmol/L (22-29); Chloride 105 mmol/L (98-107); Creatinine Clr Calc Pharmacy 28.2386; Glucose 176 mg/dL (65-115); Osmolality Calculated 317 mOsm/kg (285-295); Potassium 4.6 mmol/L (3.5-5.1); Sodium 141 mmol/L (136-145)
[2025-01-14 07:15] VITALS: BP 197/79; PULSE 75; RESP 23; TEMP 36.4; O2SAT 97
--- NOTE | 2025-01-14 10:35 | P.DS_ITS ---
Discharge Providers Date of Admission: 01/08/25 17:54 Date of Discharge: January 14, 2025 Attending Provider at Admission: Duglas Sharma MD Attending Provider at Discharge: Lul Fagan MD Consults: Latonia St MD nephrology Princess Colmenares MD cardiology Primary Care Provider: Charli Piña MD Diagnoses at Discharge Discharge Diagnosis 1. Complicated UTI (urinary tract infection): Details from hospital stay: Patient with difficult UTI history recently treated with Bactrim but creatinine baseline 1 flavio to 2.1 in the setting of concomitant lisinopril, dehydration and A1c 6.2. He is found to have Proteus greater 100,000-colony count sensitive to Levaquin. Change Wang prior to discharge today. [facility] Patient has mild left-sided hydronephrosis but right side does not have hydronephrosis. Ultrasound from 10/09/2023 did not have hydronephrosis Patient has left renal and vesicular calculi potential cause for recurrent urinary tract infection 2. Acute kidney injury: Details from hospital stay: Acute on chronic kidney disease: Creatinine baseline 1.1, currently has HALEY with a creatinine of 2.1 on presentation and flavio to 3.1 and decreased back to 2.1 currently. Etiology likely multifactorial in the setting of ATN due to acute infection, possible Bactrim inhibiting creatinine secretion, and also possible AIN due to presence of urine eosinophils but no fever and no rash. Initial UA showed 1+ protein and 3+ blood but in the setting of chronic Wang. Will repeat UA. - Cr stable , on steroids for possible AIN , plan for short course strroids and follow up labs as out pt - Avoid IV contrast and follow - follow as outpatient for resolution of HALEY Patient was seen by Dr. St and treated with steroid burst albumin Bicitra and gentle saline diuresis. Bactrim was held and we dosed Levaquin 750 mg every 48 hours based on creatinine clearance 3. Left ventricular systolic dysfunction (LVSD): Details from hospital stay: Patient with EF of 30% but not angina. Plan outpatient cardiomyopathy workup and additional medical treatment as per patient's desire for conservative noninvasive measures. At this time his kidney function limits some of his medication options. Follow-up outpatient 4. Benign essential HTN: Details from hospital stay: Change metoprolol to Coreg 6.25 mg twice daily and add hydralazine 25 mg 3 times daily. Avoid lisinopril at this time due to recent acute kidney injury 5. Atherosclerosis of [place] coronary artery of [place] heart without angina pec toris: Details from hospital stay: Stable no angina 6. History of transcatheter aortic valve replacement (TAVR): Details from hospital stay: Stable Reason for Visit Reason for Visit: Dizziness/ Neausa Brief History: Ricardo Nelson is a 89 year old male with past medical history of with past medical history of hypertension, hypothyroidism, TAVR, CAD, chronic indwelling Wang catheter, long term resident comes from the long term today because of generalized weakness, nausea along with shivering which started today morning. Symptoms are associated with left lower quadrant abdominal pain which is colicky in nature. Also complains of few episodes of diarrhea. Patient states he was at his baseline health until last night. He has been having frequent episodes of bladder spasms for which they have changed his Wang catheter twice for last 3 weeks. He has been treated with Bactrim for UTI recently as per the family members. Patient examination laying comfortably in bed currently. Denies any nausea, vomiting. Hemodynamically stable. Blood work in the ER shows potassium of 5.6 with creatinine of 2.1 with baseline creatinine of 1-1.1. UA concerning for UTI. Hospital Course Hospital Course 89-year-old male admitted with acute kidney injury attributed to Bactrim treatment for complicated UTI. Creatinine flavio from 1.1-3.1 and back down to 2.1 at time of discharge he was treated with Levaquin 7 or 50 mg every 48 hours for remainder of his antibiotic course. [facility] had [facility] where he and his who has dementia both reside in neighboring rooms. Patient was treated by Dr. St of the joinery patternmaker with gentle saline diuresis, Bicitra and albumin as well as steroids. Patient had episode of tachycardia on 01/09/2025 echo showed EF of 30% with moderately increased LV cavity size, right atrial pressure 15 mmHg Patient was seen by healthcare economics consultant and joinery patternmaker. Due to his acute kidney injury he was not a good candidate for acute setting angiogram. Patient elected for conservative measures with medical management and not intervention. He had an episode of tachycardia now managed with carvedilol for his hypertension. KINGSLEY inhibitor was discontinued and he is on hydralazine. Patient to follow-up outpatient in a week with labs Physical Exam Narrative: General well-developed well-nourished obese male in no acute cardiopulmonary stress CV regular rate and rhythm Lungs clear to auscultation with diminished breath sounds at bases Abdomen positive bowel tones soft nontender Calves no tenderness cords pedal edema Urinary Catheter Management: Wang: Cath Placed During This Visit: no Reason for Continuing Indwelling Catheter: Accurate Measurement of Urinary Output in Critically Ill Patients Discharge Data Studies Completed and Pending Completed Studies During Hospitalization Category Date Time Status CT abdomen pelvis wo con [id number] Stat Cat Scan 01/09/25 08:00 Completed XR chest 1V portable [id number] Stat Exams 01/08/25 14:50 Completed CV. echo complete* [id number] Routine Ultrasound 01/10/25 02:11 Completed US renal BI* [id number] Routine Ultrasound 01/10/25 12:44 Completed Pending at discharge Category Date Time Status OVA and Parasites, Conc and PE Routine Lab 01/08/25 15:44 Results Salmonella / Shigella / Campy Routine Lab 01/08/25 15:44 Results Radiology Impressions Chest X-Ray 01/08/25 14:50 IMPRESSION: Stable chest with cardiomegaly and pulmonary venous hypertension. Abdomen/Pelvis CT 01/09/25 08:00 IMPRESSION: 1. Left renal and vesicular calculi. 2. Subpleural nodularity. 3-6 month follow-up chest CT recommended. For patients at low risk (minimal or absent history of smoking and of other known risk factors), recommend CT Chest at 3-6 months, then consider CT Chest at 18-24 months. For patients at high risk (history of smoking or of other known risk factors), recommend CT Chest at 3-6 months, then CT Chest at 18-24 months. (Reference: Ana Laura) REFERENCES: Nancyhomaribell H, et al. Guidelines for Management of Incidental Pulmonary Nodules Detected on CT Images: From the Fleischner Society 2017. Radiology. 2017;284(1):228-243. Renal Ultrasound 01/10/25 12:44 IMPRESSION: 1. Mild left-sided hydronephrosis compatible with prior CT examination of 01/09/2025. No nephrolithiasis. The ureter is not well-visualized. 2. No right-sided hydronephrosis. Trace fluid just inferior to the right kidney similar to prior CT. 3. Simple cysts in both kidneys. 4. Incidentally, there is the suggestion of mild gallbladder wall thickening which may be a component of perihepatic fat as the remaining portions of the gallbladder wall is thin and normal in thickness. There is no definite pericholecystic fluid. No cholelithiasis. If there is clinical concern for acute cholecystitis further evaluation with HIDA scan could be considered. Laboratory Results WBC 10.29 10^3/uL (3.29-11.43) 01/12/25 09:12 RBC 3.35 10^6/uL (3.85-5.65) L 01/12/25 09:12 Hgb 10.40 g/dL (11.27-16.99) L 01/12/25 09:12 Hct 32.5 % (37-53) L 01/12/25 09:12 MCV 97.0 fl (82-101) 01/12/25 09:12 MCH 31.0 pg (27-33) 01/12/25 09:12 MCHC 32.0 g/dL (30-55) 01/12/25 09:12 RDW 15.2 % (12.1-15.1) H 01/12/25 09:12 Plt Count 114 10^3/cmm (157-399) L 01/12/25 09:12 MPV 10.7 fL (7.4-10.4) H 01/12/25 09:12 Neut % (Auto) 95.3 % 01/12/25 09:12 Lymph % (Auto) 2.7 % 01/12/25 09:12 Ocean % (Auto) 1.4 % 01/12/25 09:12 Eos % (Auto) 0.0 % 01/12/25 09:12 Baso % (Auto) 0.1 % 01/12/25 09:12 Neut # (Auto) 9.81 10^3/uL (1.8-7.7) H 01/12/25 09:12 Lymph # (Auto) 0.3 10^3/uL (0.8-4.8) L 01/12/25 09:12 Ocean # (Auto) 0.1 10^3/uL (0.2-0.9) L 01/12/25 09:12 Eos # (Auto) 0.0 10^3/uL (0.0-0.8) 01/12/25 09:12 Baso # (Auto) 0.0 10^3/uL (0.0-0.1) 01/12/25 09:12 Nucleated RBC % (auto) 0 % 01/12/25 09:12 Nucleated RBCs # 0.0 /100WBC 01/12/25 09:12 APTT 50.0 SECONDS (23.9-36.7) H 01/11/25 15:16 Sodium 141 mmol/L (136-145) 01/14/25 04:45 Potassium 4.6 mmol/L (3.5-5.1) 01/14/25 04:45 Chloride 105 mmol/L (98-107) 01/14/25 04:45 Carbon Dioxide 19 mmol/L (22-29) L 01/14/25 04:45 Anion Gap 21.6 (5-19) H 01/14/25 04:45 BUN 71 mg/dL (8-23) H 01/14/25 04:45 Creatinine 2.1 mg/dL (0.7-1.2) H 01/14/25 04:45 GFR Calculation Not Reportable 01/14/25 04:45 Glucose 176 mg/dL (65-115) H 01/14/25 04:45 POC Glucose 175 mg/dL (70-110) H 01/14/25 06:27 Estimat Average Glucose 131 01/08/25 14:57 Hemoglobin A1c 6.2 % (4.0-6.0) H 01/08/25 14:57 Calculated Osmolality 317 mOsm/kg (285-295) H 01/14/25 04:45 Lactic Acid 1.8 mmol/L (0.5-2.2) 01/08/25 21:00 Calcium 7.8 mg/dL (8.5-10.5) L 01/14/25 04:45 Phosphorus 4.3 mg/dL (2.5-4.5) 01/11/25 00:59 Magnesium 2.1 mg/dL (1.7-2.3) 01/11/25 00:59 Total Bilirubin 0.3 mg/dL (0.15-1.2) 01/11/25 00:59 AST 14 U/L (0-40) 01/11/25 00:59 ALT 11 U/L (0-41) 01/11/25 00:59 Alkaline Phosphatase 125 U/L (40-130) 01/11/25 00:59 Troponin T 5th Gen ng/L 105 ng/L (0-15) H* 01/10/25 15:31 Troponin T Baseline 84 ng/L (0-15) H 01/09/25 21:07 Troponin T 120 Minute 104.1 ng/L (0-15) H 01/09/25 23:20 Delta Troponin T 20.1 ABS# (0-10) H* 01/09/25 23:20 Troponin T Hi Sens 6Hr 120.1 ng/L (0-15) H 01/10/25 02:53 Troponin T Hi Sens 6Hr Delta 36.1 ng/L (0-12) H* 01/10/25 02:53 Total Protein 6.0 g/dL (6.6-8.7) L 01/11/25 00:59 Albumin 3.3 g/dL (3.5-5.2) L 01/11/25 00:59 Globulin 2.7 g/dL (1.3-4.6) 01/11/25 00:59 Triglycerides 102 mg/dL (0-150) 01/09/25 03:02 Cholesterol 123 mg/dL (0-200) 01/09/25 03:02 LDL Cholesterol, Calc 73 mg/dL (50-129) 01/09/25 03:02 HDL Cholesterol 30 mg/dL (60-100) L 01/09/25 03:02 LDL/HDL Ratio 2.43 RATIO (0.00-3.22) 01/09/25 03:02 Cholesterol/HDL Ratio 4.10 mg/dL (1.0-5.00) 01/09/25 03:02 Vitamin B12 425 pg/mL (232-1245) 01/08/25 21:00 Folate 3.9 ng/mL (4.5-32.2) L 01/09/25 03:02 Procalcitonin > 100.00 ng/mL (0-0.5) H 01/11/25 00:59 TSH 2.25 uIU/mL (0.27-4.20) 01/10/25 02:53 Urine Color Rose[place] (Yellow) A 01/08/25 14:58 Urine Appearance Turbid (CLEAR) A 01/08/25 14:58 Urine pH 7.0 (5-7) 01/08/25 14:58 Ur Specific [place] 1.013 (1.005-1.030) 01/08/25 14:58 Urine Protein 1+ (Negative) A 01/08/25 14:58 Urine Glucose (UA) Negative (Normal) 01/08/25 14:58 Urine Ketones Negative (Negative) 01/08/25 14:58 Urine Blood 3+ (Negative) A 01/08/25 14:58 Urine Nitrate Negative (Negative) 01/08/25 14:58 Urine Bilirubin Negative (Negative) 01/08/25 14:58 Urine Urobilinogen 0.2 mg/dL (Negative) 01/08/25 14:58 Ur Leukocyte Esterase 3+ (Negative) A 01/08/25 14:58 Urine RBC >100 /hpf (0-2) H 01/08/25 14:58 Urine WBC >100 /hpf (0-5) H 01/08/25 14:58 Ur Eosinophil Smear 5 (0-0) H 01/09/25 10:47 Ur Squamous Epith Cells 0-5 /hpf (0-5) 01/08/25 14:58 Ur Transition Epith Cell 0-4 /hpf 01/08/25 14:58 Amorphous Sediment Not Reportable 01/08/25 14:58 Urine Bacteria 3+ /hpf (NONE) H 01/08/25 14:58 Hyaline Casts 17.37 /lpf 01/08/25 14:58 Urine Eosinophils Eosinophils seen H 01/09/25 10:47 Ur Random Sodium 49 mmol/L 01/09/25 10:47 Ur Random Potassium 54 mmol/L 01/09/25 10:47 Ur Random Chloride 34 mmol/L 01/09/25 10:47 Urine Creatinine 115 mg/dL (39-259) 01/09/25 10:47 Nasal MRSA (PCR) Mrsa detected (Negative) A 01/09/25 10:47 C. difficile (PCR) Negative (Negative) 01/08/25 15:44 Vitals Last Vital Signs Temp 97.6 F 01/14/25 07:15 Pulse 75 01/14/25 07:15 Resp 23 H 01/14/25 07:15 BP 197/79 01/14/25 07:15 Pulse Ox 97 10/21/25 07:15 O2 Del Method Room Air 01/14/25 07:15 O2 Flow Rate 1 01/12/25 07:08 Discharge Plan Discharge Patient Disposition: Home Condition: Stable Prescriptions: New sodium bicarbonate 650 mg Tablet 650 mg PO BID Qty: 30 0RF hydralazine 25 mg tablet 25 mg PO TID Qty: 90 0RF Rx Instructions: hold if sbp below 130 carvedilol 6.25 mg Tablet 6.25 mg PO BID Qty: 60 0RF prednisone 10 mg tablet 10 mg PO DIRECTED Qty: 10 0RF Rx Instructions: 2 daily for 3 days then 1 daily for 4 days and stop lactulose 10 gram/15 mL Solution 10 g PO DAILY PRN (Reason: Constipation (see protocol)) Qty: 1200 0RF levofloxacin 750 mg Tablet 750 mg PO Q48H Qty: 3 0RF Continued acetaminophen [Tylenol] 325 mg tablet 650 mg PO QID PRN (Reason: Pain) aspirin 81 mg tablet,delayed release (DR/EC) 81 mg PO DAILY nitroglycerin 0.4 mg tablet, sublingual 0.4 mg sublingual Q5M PRN (Reason: chest pain) magnesium hydroxide [Milk of Magnesia] 400 mg/5 mL suspension 30 ml PO BID PRN (Reason: constipation ) bisacodyl [Dulcolax (bisacodyl)] 10 mg suppository 10 mg OH DAILY PRN (Reason: constipation ) sertraline [Zoloft] 50 mg tablet 50 mg PO DAILY levothyroxine 25 mcg tablet See Rx Instructions .ROUTE .COMPLEX Qty: 90 3RF Dose Instruction: TAKE 1 TABLET DAILY Rx Instructions: TAKE 1 TABLET DAILY dextromethorphan-guaifenesin [Marcela-Tussin DM] 10-100 mg/5 mL Liquid 10 ml PO Q4H PRN (Reason: Cough) ondansetron HCl 4 mg tablet 4 mg PO Q4H PRN (Reason: Nausea And Vomiting) Fleet Enema 19-7 gram/118 mL Enema 118 ml OH DAILY PRN (Reason: Constipation) calcium carbonate [Tums 500] 500 mg calcium (1,250 mg) Tablet,Chewable 1,000 mg PO DAILY polyethylene glycol 3350 [Miralax] 17 gram/dose Powder 17 g PO DAILY PRN (Reason: constipation ) Discontinued lisinopril 40 mg tablet 40 mg PO DAILY Qty: 90 3RF Electrician Telephone OK for DC: Nephrology Other Ambulatory Orders: Basic Metabolic Panel (Routine) Timeframe: 1 Week Facility: [facility] - Location: Lab - Main Lab Ordered By: Lul Fagan Referrals: Charli Piña MD [Primary Care Provider, [facility]] - 7-10 days Patient Instructions: Chronic Kidney Disease (IP), Chronic Kidney Disease Diet (GEN), Obesity (GEN), Obesity and Weight Control, Opioid Safety, Patient Portal & David Instructions Activity Restrictions/Additional Instructions: You were admitted for kidney injury attributed to Bactrim Do not take Bactrim in the future Do not take any NSAIDs such as ibuprofen or Aleve Try to lose weight to get down to a BMI of 25 or a weight around 160 pounds by losing 2 pounds a week. This will help your breathing and also your kidneys Follow-up with your physician Dr. Piña to further consider options for treatment of urinary retention and left kidney stones and mild hydronephrosis Discharge Attestations Time Spent in Discharge Care*: greater than 30 min Time Spent in Smoking Cessation: Patient is not a smoker Quality Metrics Clinical Quality Measures [ No reported AMI, CVA or VTE this stay] Coding Level of Care Code 86846 Diagnoses Complicated UTI (urinary tract infection) N39.0 Acute kidney injury N17.9 Left ventricular systolic dysfunction (LVSD) I51.89 Benign essential HTN I10 Athe[address]clerosis [address] [place] coronary artery of [place] heart without angina pectoris I25.10 Coronary Disease-Associated Artery/Lesion type: [place] artery History of transcatheter aortic valve replacement (TAVR) Z95.2 Time Spent (min) 45
[2025-01-14 11:14] VITALS: BP 142/66; PULSE 81; RESP 25; TEMP 36.3; O2SAT 96
[2025-01-14 14:11] VITALS: BP 142/66; PULSE 81; RESP 25; TEMP 36.3; O2SAT 96
[2025-01-14 16:00] VITALS: BP 173/70; PULSE 82; RESP 22; TEMP 36.6; O2SAT 94
--- NOTE | 2025-01-14 19:41 | PM.PN ---
Subjective Subjective: no new c/o Medications: Reviewed: Yes Vitals/I&O/Wt Last Vital Signs Temp 97.9 F 01/14/25 16:00 Pulse 82 01/14/25 16:00 Resp 22 H 01/14/25 16:00 BP 173/70 01/14/25 16:00 Pulse Ox 94 01/14/25 16:00 O2 Del Method Room Air 01/14/25 16:00 O2 Flow Rate 1 01/12/25 07:08 01/14/25 01/14/25 01/14/25 06:59 14:59 22:59 Intake Total 580 / 2280.833 1959 / 1960 240 / 2200 Output Total 250 / 875 250 / 250 75 / 325 Balance 330 / 2437.377 9155 / 1710 165 / 1875 Weight last 48 hrs Weight 98.8 kg Weight 98.1 kg Weight 98.1 kg Physical Exam Narrative: Patient is awake alert, no acute distress No JVD PERRLA S1-S2 regular rate and rhythm Lungs clear bilaterally Abdomen soft nontender Extremities no edema Skin no rash Urinary Catheter Management: Wang: Cath Placed During This Visit: no Reason for Continuing Indwelling Catheter: Accurate Measurement of Urinary Output in Critically Ill Patients Data 01/12/25 09:12 01/14/25 04:45 Micro: Microbiology 01/09/25 09:22 Blood Culture - Final Blood NO GROWTH AFTER 5 DAYS 01/09/25 09:26 Blood Culture - Final Blood NO GROWTH AFTER 5 DAYS 01/08/25 15:44 E. coli Shiga-like Toxin (PCR) - Final Stool Campylobacter (PCR) - Final A&P Assessment and plan 1. Acute kidney injury: Plan: 1. Acute on chronic kidney disease: Creatinine baseline 1.1, currently has HALEY with a creatinine of 2.1 on presentation and 2.7 currently. Etiology likely multifactorial in the setting of ATN due to acute infection, possible Bactrim inhibiting creatinine secretion, and also possible AIN due to presence of urine eosinophils but no fever and no rash. Initial UA showed 1+ protein and 3+ blood but in the setting of chronic Wang. Will repeat UA. - Cr stable , on steroids for possible AIN , plan for short course strroids and follow up labs as out pt - Avoid IV contrast and follow - If creatinine remains stable, should follow as outpatient for resolution of HALEY 2. Hyperkalemia: Potassium was 5.6 on presentation improved now , placed on low K diet 3. Metabolic acidosis: Mild, in the setting of HALEY, continue to monitor., S/P of Bicitra. 4. Urinary tract infection, currently on meropenem, cultures showing gram-negative rods 5. Chronic indwelling Wang catheter Pt and family wishes to persue conservative measures Patient evaluated using audiovisual cart. Time spent 40 minutes PDMP PDMP Reviewed: Not Reviewed Attestations Medical Necessity Statement*: per bisi Coding Level of Care Code Acute Code for [facility] Diagnoses Acute kidney injury N17.9
== END 2025-01-14 19:27 | disposition skilled nursing facility (03) | DRG 698 ==
LOC: ER 17:53 → CSU 17:55
PROVIDERS: Hospitalist; Internal Medicine; Student in an Organized Health Care Education/Training Program; Admitting Provider Student in an Organized Health Care Education/Training Program; Emergency Provider Family Medicine; PCP Family Medicine; Visit Provider Internal Medicine
DX: T83.511A Infection and inflammatory reaction due to indwelling urethral catheter, initial encounter (principal); I21.A1 Myocardial infarction type 2; N13.2 Hydronephrosis with renal and ureteral calculous obstruction; N13.30 Unspecified hydronephrosis; N17.9 Acute kidney failure, unspecified; E87.20 Acidosis, unspecified; N39.0 Urinary tract infection, site not specified; B96.89 Other specified bacterial agents as the cause of diseases classified elsewhere; B96.4 Proteus (mirabilis) (morganii) as the cause of diseases classified elsewhere; I12.9 Hypertensive chronic kidney disease with stage 1 through stage 4 chronic kidney disease, or unspecified chronic kidney disease; N18.9 Chronic kidney disease, unspecified; I51.89 Other ill-defined heart diseases; I25.10 Atherosclerotic heart disease of native coronary artery without angina pectoris; R19.7 Diarrhea, unspecified; E03.9 Hypothyroidism, unspecified; E87.5 Hyperkalemia; Z95.2 Presence of prosthetic heart valve; Z95.1 Presence of aortocoronary bypass graft; Z85.46 Personal history of malignant neoplasm of prostate; Z87.440 Personal history of urinary (tract) infections; Z79.82 Long term (current) use of aspirin
CPT/HCPCS: 36415; 36416; 51702; 71045; 74176; 76770; 80048; 80053; 80061; 81001; 82436; 82570; 82607; 82746; 82962; 83036; 83605; 83630; 83735; 84100; 84133; 84145; 84300; 84443; 84484; 85025; 85730; 85999; 86403; 87040; 87045; 87077; 87086; 87177; 87186; 87209; 87427; 87449; 87493; 92523; 92526; 92610; 93005; 93306; 94664; 96372; 96374; 96376; 99285; J0612; J1644; J1815; J1938; J2185; J2270; J2405; J2919; J3490; J7030; J7120; J7799; J9999; P9046; Q3014

== ENCOUNTER 2025-01-15 04:22 | Inpatient (IN) | payer MEDICARE, OTHER, SELFPAY ==
--- OUTSIDE RECORDS SUMMARY | 2023-11-23 12:20 | XMS_ITS ---
Author Organization [facility] Address [address] [place] [address] Care Team Providers Care Jeeper Operator Name Role Phone Charli Piña Primary Care Provider GABO Self [phone] REASON FOR VISIT BPH Encounters Encounter Location Date Provider Diagnosis [facility] [address] [facility] [place] [address] 11/23/2023 GABO CONROY Plan Of Treatment No Information Progress Notes * Ricardo BINGHAMDOB:1935 (89 yo M)Acc No.[id number]:11/23/2023 Progress Notes Patient: Ricardo HIDALGO Provider: Michi CONROY MD :1935 A ge:88 Y S ex:Male Date:11/23/2023 Address:[address] [place], [place] [id number] Pcp:Charli Piña Subjective: * Chief Complaints: * 1 . BPH. * Medical History: Objective: * Vitals: Assessment: Plan: * Treatment: * Billing Information: * Visit Code: * Procedure Codes: * Electronic signature of AUST IN MD MARYCARMEN on 01/15/2025 at 04:34 AM CDT Sign off status: Pending * Provider: Michi CONROY MD Date: 0 11/23/2023 Generated for Julio elias/Fina/eTransmitting on: 04:34 AM CDT
[2025-01-15] VITALS (15 sets, daily range): BP systolic 123–177; BP diastolic 56–74; PULSE 55–73; RESP 20–28; TEMP 36–36.9; O2SAT 95–100; BMI 28.7
--- OUTSIDE RECORDS SUMMARY | 2025-01-15 04:34 | XMS_ITS | Clinical Summary ---
Author Organization [facility] Based Address [address] [place] [address] Care Team Providers Care In Store Banker Name Role Phone Charli Piña MD Primary [...] Comments Blood Pressure 120/68 02/02/2022 2:36 PM ASIAN STUDIES PROFESSOR Pulse 60 02/02/2022 2:36 PM ASIAN STUDIES PROFESSOR Temperature 37.2 C (98.9 F) 01/21/2021 11:45 AM CDT Respiratory Rate 18 01/21/2021 11:45 AM CDT Oxygen Saturation 96% 01/21/2021 11:45 AM CDT Inhaled Oxygen Concentration - - Weight 97.5 kg (215 lb) 02/02/2022 2:36 PM ASIAN STUDIES PROFESSOR Height 172.7 cm (5' 8 ) 02/02/2022 2:36 PM ASIAN STUDIES PROFESSOR Body Mass Index 32.69 02/02/2022 2:36 PM ASIAN STUDIES PROFESSOR Plan of Treatment Health Maintenance Due Date Last Done Comments DTAP/TDAP/TD VACCINES (1 - Tdap) 1954 PNEUMOCOCCAL VACCINE 50+ YEARS (1 of 2 - PCV) 04/30/18 57 ZOSTER VACCINE (1 of 2) 1987 RSV VACCINE (60+ or ) (1 - 1-dose 75+ series) 2012 INFLUENZA VACCINE (#1) 2024 Medical Devices Implanted Type Area System Software Developer Device Identifier Shelf Expiration Date Model / Serial / Lot Closure Perclose Proglide [id number] - [id number] Implanted:Qty: 1 on 12/18/2020 at [facility] Closure Device Right: Groin CELIS- VASC DEVICE 09/23/2022 [id number] / / [id number] Closure Perclose Proglide 66851 - [id number] Implanted:Qty: 1 on 01/20/2021 at [facility] Closure Device Right: Groin CELIS- VASC DEVICE 10/24/2022 [id number] / / [id number] Closure Perclose Proglide 18650 - [id number] Implanted:Qty: 1 on 01/20/2021 at [facility] Closure Device Right: Groin CELIS- VASC DEVICE 10/24/2022 [id number] / / [id number] Closure Perclose Proglide 45228 - [id number] Implanted:Qty: 1 on 01/20/2021 at [facility] Closure Device Right: Groin CELIS- VASC DEVICE 08/24/2022 [id number] / / [id number] Stent Synergy Xd 4.0x16mm Monorail [id number] - [id number] Implanted:Qty: 1 on 12/18/2020 by Bart Mcduffie MD at [facility] Stent Left: Coronary [employer] 06/30/2022 [id number] / / [id number] Stent Synergy Xd 4.0x32mm Monorail [id number] - [id number] Implanted:Qty: 1 on 12/18/2020 by Bart Mcduffie MD at [facility] Stent Right: Coronary [employer] 05/26/2022 [id number] / / [id number] Vlv 29mm Evproplus-29us - [id number] Implanted:Qty: 1 on 01/20/2021 at [facility] Valve N/A: Heart [employer] 06/17/2022 EVPROPLUS -29US / [id number] / Insurance MEDICARE PART A AND B [facility] OPTIONS PPO [id number] Advance Directives For more information, please contact: [phone] * Full Code (Latest Code Status on File) Date Activated Date Inactivated Comments 01/20/2021 7:05 AM 01/21/2021 6:01 PM * Full Code Date Activated Date Inactivated Comments 12/18/2020 10:05 AM 12/19/2020 2:52 PM Care Teams In Store Banker Relationship Specialty Start Date End Date Charli Piña MD [address] [place] [address] PCP - General Family Practice 12/14/20
--- OUTSIDE RECORDS SUMMARY | 2025-01-15 04:34 | XMS_ITS | Patient Health Record ---
Author Organization [facility] Address [address] [place] [address] Care Team Providers Care Bench Hand Machine Name Role Phone Charli Piña Primary Care Provider GABO Self Unavailable [phone] Reason For Referral No Information Plan Of Treatment No Information Insurance Providers Payer Name Payer Address Payer Phone Subscriber Number Group Number Insured Name Patient Relationship to Insured Coverage Start Date Coverage End Date [place] [address] [place], [place] [id number] Ricardo Nelson Self - patient is the insured [facility] [address] [address] [place], [place] [id number] Ricardo Nelson Self - patient is the insured
--- NOTE | 2025-01-15 04:56 | ECG_ITS ---
[facility] Date: 2025-01-15 Pat Name: Ricardo Nelson Department: Room: Gender: Male Senior Hr Generalist: : 1935 Requested By: Montse Shipley Order Number: [id number] Jackie MD: Omari Marquis M.D. Measurements Intervals Carbon Rate: 67 P: 85 TX: 168 QRS: 89 QRSD: 169 T: 85 QT: 471 QTc: 500 Interpretive Statements SINUS RHYTHM INTRAVENTRICULAR CONDUCTION DELAY [130+ ms QRS DURATION] Compared to ECG 01/09/2025 23:46:14 Ventricular premature complex(es) no longer present Right-axis deviation no longer present Electronically Signed On 01-15-2025 22:53:14 CDT by Omari Marquis M.D. [email or web address]
--- NOTE | 2025-01-15 04:56 | XRR_ITS ---
PROCEDURE INFORMATION: Exam: XR Chest Exam date and time: 01/15/2025 5:01 AM Age: 89 years old Clinical indication: Shortness of breath TECHNIQUE: Imaging protocol: Radiologic exam of the chest. Views: 1 view. COMPARISON: CR XR chest 1V portable [id number] 01/08/2025 2:50 PM FINDINGS: Tubes, catheters and devices: Median sternotomy suture wires. Lungs: Vascular engorgement with interstitial edema. Congestive heart failure is probably present. Poor inspiratory effort. Hazy diffuse mild right-sided infiltrate likely early pulmonary edema. Pleural spaces: Unremarkable. No pleural effusion. No pneumothorax. Heart/Mediastinum: See Vasculature finding. Vasculature: Mild cardiomegaly and uncoiling of the thoracic aorta. Bones/joints: Unremarkable. XR/XR chest 1V portable [id number] IMPRESSION: Likely CHF. Superimposed pneumonia on the right side not excluded.
[2025-01-15 05:05] LABS: Hematocrit 32.8 % (37-53); Hemoglobin 10.60 g/dL (11.27-16.99); Mean Corpuscular HGB Conc 32.3 g/dL (30-55); Mean Corpuscular Hemoglobin 30.0 pg (27-33); Mean Corpuscular Volume 92.9 fl (82-101); Nucleated Red Blood Cells % 0 %; Platelet Count 140 10^3/cmm (157-399); Red Blood Count 3.53 10^6/uL (3.85-5.65); White Blood Count 15.64 10^3/uL (3.29-11.43)
[2025-01-15 05:14] LABS: Lactic Sepsis W/Reflex 1.5 mmol/L (0.5-2.2)
[2025-01-15 05:16] LABS: Troponin(5th) Baseline 69 ng/L (0-15)
[2025-01-15 05:25] LABS: Procalcitonin 8.43 ng/mL (0-0.5)
[2025-01-15 05:38] LABS: Alanine Aminotransferase 10 U/L (0-41); Albumin Level 4.1 g/dL (3.5-5.2); Alkaline Phosphatase 91 U/L (40-130); Aspartate Amino Transferase 13 U/L (0-40); Blood Urea Nitrogen 73 mg/dL (8-23); Calcium 7.6 mg/dL (8.5-10.5); Carbon Dioxide 19 mmol/L (22-29); Chloride 105 mmol/L (98-107); Creatinine Clr Calc Pharmacy 26.4059; Globulin 1.9 g/dL (1.3-4.6); Glucose 138 mg/dL (65-115); Osmolality Calculated 318 mOsm/kg (285-295); Sodium 142 mmol/L (136-145); Total Protein 6.0 g/dL (6.6-8.7)
[2025-01-15 05:40] LABS: Anion Gap 22.9 (5-19); Potassium 4.9 mmol/L (3.5-5.1)
[2025-01-15 05:52] LABS: NT Pro B Type Natriuretic Pept > 70000 pg/mL (0-450)
--- NOTE | 2025-01-15 06:11 | W.ED.SOB ---
HPI - SOB/Dyspnea General: Chief Complaint: Shortness of Breath/Dyspnea Stated Complaint: sob Time Seen by Provider: 01/15/25 04:25 History of Present Illness: HPI Narrative: 89-year-old male presents to the emergency room with complaints of difficulty breathing that began overnight. He was recently hospitalized with an acute kidney injury and hyperkalemia secondary to Bactrim use for his cystitis. He was discharged yesterday in the afternoon. He does normally does not wear oxygen . He is reporting some moderate sputum production increasing shortness of breath. He has a known history of congestive heart failure with a left ventricular ejection fraction of 30%. He denies any chest pain at this time has a history of a TAVR. At time of discharge it was noted they planned outpatient cardiac workup with maximizing medical therapy as patient did not wish to have any invasive procedures. Associated symptoms: Reports chest congestion and orthopnea; Deny abdominal pain, chest pain or fever(s) Related Data Home Medications ?Medication ?Instructions ?Recorded ?Confirmed aspirin 81 mg tablet,delayed 81 mg PO DAILY 08/20/19 01/08/25 release acetaminophen 325 mg tablet 650 mg PO QID PRN Pain 07/21/20 01/08/25 (Tylenol) nitroglycerin 0.4 mg sublingual 0.4 mg sublingual Q5M PRN chest 01/28/21 01/08/25 tablet pain bisacodyl 10 mg rectal suppository 10 mg OK DAILY PRN constipation 01/24/24 01/08/25 (Dulcolax (bisacodyl)) magnesium hydroxide 400 mg/5 mL 30 ml PO BID PRN constipation 01/24/24 01/08/25 oral suspension (Milk of Magnesia) sertraline 50 mg tablet (Zoloft) 50 mg PO DAILY 01/24/24 01/08/25 calcium carbonate 1,000 mg PO DAILY indigestion 01/08/25 01/08/25 dextromethorphan-guaifenesin 10 10 ml PO Q4H PRN Cough 01/08/25 01/08/25 mg-100 mg/5 mL oral liquid (Marcela-Tussin DM) ondansetron HCl 4 mg tablet 4 mg PO Q4H PRN Nausea And Vomiting 01/08/25 01/08/25 polyethylene glycol 3350 17 17 g PO DAILY PRN constipation 01/08/25 01/08/25 gram/dose oral powder (Miralax) sodium phosphates 19 gram-7 118 ml OK DAILY PRN Constipation 01/08/25 01/08/25 gram/118 mL enema (Fleet Enema) Previous Rx's ?Medication ?Instructions ?Recorded levothyroxine 25 mcg tablet See Rx Instructions .Route 03/30/23 .COMPLEX #90 tabs carvedilol 6.25 mg tablet 6.25 mg PO BID #60 tabs 01/14/25 hydralazine 25 mg tablet 25 mg PO TID #90 tabs 01/14/25 lactulose 10 gram/15 mL oral 10 g (15 mL) PO DAILY PRN 01/14/25 solution Constipation (see protocol) #1,200 mL levofloxacin 750 mg tablet 750 mg PO Q48H #3 tabs 01/14/25 prednisone 10 mg tablet 10 mg PO DIRECTED #10 tabs 01/14/25 sodium bicarbonate 650 mg tablet 650 mg PO BID #30 tabs 01/14/25 Allergies Allergy/AdvReac Type Severity Reaction Status Date / Time No Known Allergies Allergy Verified 07/30/24 15:21 Review of Systems Const: Denies: fever(s) or chills Card: Reports: edema and orthopnea; Denies: chest pain Resp: Reports: dyspnea, productive cough and chest congestion GI: Denies: abdominal pain : Denies: dysuria, urinary frequency or urinary urgency Musc: Denies: neck pain or back pain Skin/Breast: Denies: rash PFSH ED PFSH: Medical History CKD (chronic kidney disease) Irregularly irregular pulse rhythm Severe aortic valve stenosis Hyperkalemia HALEY (acute kidney injury) Acute exacerbation of CHF (congestive heart failure) Hx of goiter 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 Falls Weakness Urinary tract infection Hypothyroid Nocturia Atherosclerosis of coronary artery Incomplete bladder emptying Hx of carpal tunnel syndrome History of bradycardia Mitral valve prolapse Recurrent UTI History of paroxysmal supraventricular tachycardia Gouty arthritis Goiter Bladder cancer Surgical History History of bladder surgery History of PTCA Hx of CABG H/O heart artery stent 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 S/P TURP (status post transurethral resection of prostate) Family History Father , at age 69 Suicide Mother , at age 89 CAD (coronary artery disease) Diabetes Sister Diabetes Lung disease Brother Diabetes Stroke Denies family history of Clotting disorder Dementia Chronic kidney disease (CKD) Anesthesia complication Bleeding disorder Cancer Social History Smoking and tobacco/nicotine status: tobacco/nicotine user, details unknown Alcohol intake: never Marital status: Current occupational status: retired Physical Exam Const: GENERAL APPEARANCE: cooperative ORIENTATION/CONSCIOUSNESS: Yes awake, Yes oriented to person, Yes oriented to place and Yes oriented to time HENMT: COMMON NORMALS: normocephalic, atraumatic and hearing grossly normal bilaterally HEAD & SCALP: normocephalic and atraumatic Resp: EFFORT & INSPECTION: No able to speak in complete sentences, Yes tachypneic, Yes uses accessory muscles and Yes audible wheezes Cardio: COMMON NORMALS: regular rate, regular rhythm and No murmurs present (Cardio) RATE: regular rate RHYTHM: regular rhythm GI: COMMON NORMALS: Soft to palpation and No hepatosplenomegaly present AUSCULTATION: Yes normoactive bowel sounds PALPATION: Yes Soft to palpation, No Tenderness to palpation present (GI), No Guarding due to palpation present (GI) and Yes No hepatosplenomegaly present Extremity: COMMON NORMALS: normal to inspection, capillary refill normal, no clubbing, cyanosis or edema, no calf tenderness and no pedal edema Neuro: SENSORIUM/ORIENTATION: Yes oriented to person, Yes oriented to place and Yes oriented to time Skin: COMMON NORMALS: no rashes or lesions noted GENERAL SKIN EXAM: no rashes or lesions noted Course Vital Signs: Vital signs: Vital Signs Temperature 96.8 F L 01/15/25 04:39 Pulse Rate 63 01/15/25 06:40 Respiratory Rate 26 H 01/15/25 06:28 Blood Pressure 177/74 01/15/25 04:39 Pulse Oximetry 98 01/15/25 06:40 Oxygen Delivery Me thod Nasal Cannula 01/15/25 06:28 Oxygen Flow Rate 2 01/15/25 06:28 Fraction of Inspir ed Oxygen 28 01/15/25 06:40 MDM - SOB/Dyspnea Medical Decision Making Patient seen initially and were initial workup ordered differential diagnose includes acute coronary syndrome congestive heart failure pneumonia acute renal failure. Reviewed discharge summary from yesterday also Dr. Dr. Fagan who had discharged the patient. They had discharged evidently holding his diuretics due to his acute renal failure that occurred during a previous hospitalization. This was done in consultation with cardiology and nephrology and discussion with the family members. Appears now he may require this difficult to maintain. He has been given Lasix we started him on antibiotics and cultured the patient. Will admit to CSU discussed Dr. Fagan orders are written. Medical Records I reviewed the patient's medical records. Lab Data I reviewed the patient's lab results. 01/15/25 04:07 01/15/25 04:07 Labs/Radiology: Radiology Impressions Chest X-Ray 01/15/25 04:56 IMPRESSION: Likely CHF. Superimposed pneumonia on the right side not excluded. Laboratory Results WBC 15.64 10^3/uL (3.29-11.43) H 01/15/25 04:07 RBC 3.53 10^6/uL (3.85-5.65) L 01/15/25 04:07 Hgb 10.60 g/dL (11.27-16.99) L 01/15/25 04:07 Hct 32.8 % (37-53) L 01/15/25 04:07 MCV 92.9 fl (82-101) 01/15/25 04:07 MCH 30.0 pg (27-33) 01/15/25 04:07 MCHC 32.3 g/dL (30-55) 01/15/25 04:07 RDW 15.1 % (12.1-15.1) 01/15/25 04:07 Plt Count 140 10^3/cmm (157-399) L 01/15/25 04:07 MPV 11.7 fL (7.4-10.4) H 01/15/25 04:07 Neut % (Auto) 85.5 % 01/15/25 04:07 Lymph % (Auto) 5.8 % 01/15/25 04:07 [place] % (Auto) 6.6 % 01/15/25 04:07 Eos % (Auto) 0.0 % 01/15/25 04:07 Baso % (Auto) 0.1 % 01/15/25 04:07 Neut # (Auto) 13.37 10^3/uL (1.8-7.7) H 01/15/25 04:07 Lymph # (Auto) 0.9 10^3/uL (0.8-4.8) 01/15/25 04:07 [place] # (Auto) 1.0 10^3/uL (0.2-0.9) H 01/15/25 04:07 Eos # (Auto) 0.0 10^3/uL (0.0-0.8) 01/15/25 04:07 Baso # (Auto) 0.0 10^3/uL (0.0-0.1) 01/15/25 04:07 Nucleated RBC % (auto) 0 % 01/15/25 04:07 Nucleated RBCs # 0.0 /100WBC 01/15/25 04:07 Specimen Type Arterial 01/15/25 06:13 Sample Site Radial, right 01/15/25 06:13 ABG pH 7.43 (7.35-7.45) 01/15/25 06:13 ABG pCO2 30.8 mmHg (35-45) L 01/15/25 06:13 ABG pO2 84.7 mmHg (80.0-100.0) 01/15/25 06:13 ABG PO2/FiO2 Ratio 302 01/15/25 06:13 ABG HCO3 20.3 mmol/L (22-26) L 01/15/25 06:13 ABG O2 Saturation 97.4 01/15/25 06:13 ABG Base Excess -3.4 mmol/L (-2.0-2.0) L 01/15/25 06:13 Mateusz Test Pos 01/15/25 06:13 A-a O2 Gradient 9.9 mmHg (5-10) 01/15/25 06:13 Hematocrit 31.0 % (42-52) L 01/15/25 06:13 Hgb O2 Saturation 95.7 % (95-100) 01/15/25 06:13 Carboxyhemoglobin 1.4 %THgb (0.4-20.1) 01/15/25 06:13 Methemoglobin 0.4 % (0.4-1.5) 01/15/25 06:13 Total Hemoglobin 10.1 g/dL (14-18) L 01/15/25 06:13 Sodium 142.0 mmol/L (131-143) 01/15/25 06:13 Potassium 4.5 mmol/L (3.5-5.0) 01/15/25 06:13 Glucose 167.0 mg/dL (70-115) H 01/15/25 06:13 Ionized Calcium 1.1 mmol/L (1.1-1.4) 01/15/25 06:13 O2 Delivery Device Nc 01/15/25 06:13 O2 Liters/Min 2.0 % 01/15/25 06:13 FiO2 28.0 % 01/15/25 06:13 Cubing Machine Tender ID gerca 01/15/25 06:13 Sodium 142 mmol/L (136-145) 01/15/25 04:07 Potassium 4.9 mmol/L (3.5-5.1) 01/15/25 04:07 Chloride 105 mmol/L (98-107) 01/15/25 04:07 Carbon Dioxide 19 mmol/L (22-29) L 01/15/25 04:07 Anion Gap 22.9 (5-19) H 01/15/25 04:07 BUN 73 mg/dL (8-23) H 01/15/25 04:07 Creatinine 2.1 mg/dL (0.7-1.2) H 01/15/25 04:07 GFR Calculation Not Reportable 01/15/25 04:07 Glucose 138 mg/dL (65-115) H 01/15/25 04:07 Calculated Osmolality 318 mOsm/kg (285-295) H 01/15/25 04:07 Lactic Acid 1.0 mmol/L (0.5-2.2) 01/15/25 06:27 Calcium 7.6 mg/dL (8.5-10.5) L 01/15/25 04:07 Total Bilirubin 0.9 mg/dL (0.15-1.2) 01/15/25 04:07 AST 13 U/L (0-40) 01/15/25 04:07 ALT 10 U/L (0-41) 01/15/25 04:07 Alkaline Phosphatase 91 U/L (40-130) 01/15/25 04:07 Troponin T Baseline 69 ng/L (0-15) H 01/15/25 04:07 NT-Pro-B Natriuret Pep > 28041 pg/mL (0-450) H 01/15/25 04:07 Total Protein 6.0 g/dL (6.6-8.7) L 01/15/25 04:07 Albumin 4.1 g/dL (3.5-5.2) 01/15/25 04:07 Globulin 1.9 g/dL (1.3-4.6) 01/15/25 04:07 Procalcitonin 8.43 ng/mL (0-0.5) H 01/15/25 04:07 Urine Color Yellow (Yellow) 01/15/25 06:54 Urine Appearance Clear (CLEAR) 01/15/25 06:54 Urine pH 5.0 (5-7) 01/15/25 06:54 Ur Specific [place] 1.008 (1.005-1.030) 01/15/25 06:54 Urine Protein Negative (Negative) 01/15/25 06:54 Urine Glucose (UA) Negative (Normal) 01/15/25 06:54 Urine Ketones Negative (Negative) 01/15/25 06:54 Urine Blood Non-haemolysed trace (Negative) 01/15/25 06:54 Urine Nitrate Negative (Negative) 01/15/25 06:54 Urine Bilirubin Negative (Negative) 01/15/25 06:54 Urine Urobilinogen 0.2 mg/dL (Negative) 01/15/25 06:54 Ur Leukocyte Esterase 2+ (Negative) A 01/15/25 06:54 Urine RBC 0-2 /hpf (0-2) 01/15/25 06:54 Urine WBC 21-50 /hpf (0-5) H 01/15/25 06:54 Ur Squamous Epith Cells 0-5 /hpf (0-5) 01/15/25 06:54 Amorphous Sediment Not Reportable 01/15/25 06:54 Urine Bacteria None seen /hpf (NONE) 01/15/25 06:54 Hyaline Casts 1.21 /lpf 01/15/25 06:54 Influenza A (PCR) Negative (Negative) 01/15/25 05:30 Influenza Type B (PCR) Negative (Negative) 01/15/25 05:30 RSV (PCR) Negative (Negative) 01/15/25 05:30 SARS-CoV-2 (PCR) Negative (Negative) 01/15/25 05:30 All radiology interpretation(s) finalized by discharge EKG Data EKG 1: I personally reviewed and interpreted this EKG as follows: EKG Interpretation Date: 01/15/25 Prior EKG tracings: available for review Interpretation: EKG 01/15/2025 4:31 AM sinus rhythm with interventricular conduction delay. No acute ST changes rate of 67 OK interval 168 QTc 500 EKG compared to 01/09/2025 EKG 2: I personally reviewed and interpreted this EKG as follows: EKG Interpretation Date: 01/15/25 Prior EKG tracings: available for review Interpretation: EKG 01/15/2025 sinus rhythm rate of 61 parable 160 QTc 504 intraventricular conduction delay. Compared to EKG done earlier same day there is no significant change no acute changes. Discharge Plan Discharge Patient Disposition: Admitted As Inpatient Clinical Impression: Pneumonia, CKD (chronic kidney disease), Systolic congestive heart failure Condition: Stable Coding Level of Care Code ED General Utility Worker for Yung Garnica
[2025-01-15 06:15] LABS: Respiratory Syncytial Virus Ce NEGATIVE (Negative); SARS-CoV-2 PCR NEGATIVE (Negative)
[2025-01-15] MEDS: FUROsemide 10 mg/mL SDV 4mL 40 MG IVP ×2 (06:22→13:56)
[2025-01-15 06:24] LABS: ABG PCO2 30.8 mmHg (35-45); ABG PH Result 7.43 (7.35-7.45); Alveolar-Arterial Oxygen Gradi 9.9 mmHg (5-10); Arterial Blood Gas Hematocrit 31.0 % (42-52); Blood Gas Allen Test Pos; Blood Gas LPM 2.0 %; Blood Gas Operator Identificat gerca; Blood Gas Sample Site Radial, right; Blood Gas Sample Type Arterial; Carboxyhemoglobin 1.4 %THgb (0.4-20.1); Glucose Level-ABG 167.0 mg/dL (70-115); HCO3 ABG 20.3 mmol/L (22-26); Ionized Calcium Level - ABG 1.1 mmol/L (1.1-1.4); Methemoglobin 0.4 % (0.4-1.5); Oxygen Saturation ABG 97.4; PO2 ABG 84.7 mmHg (80.0-100.0); PO2 FiO2 Ratio Arterial Blood 302; Potassium Level - ABG 4.5 mmol/L (3.5-5.0); Sodium Level - ABG 142.0 mmol/L (131-143)
[2025-01-15] MEDS: piperacillin-tazobactam 3.375 GM in sodium chloride 0.9% (plus) 50 ML IV (06:55)
--- NOTE | 2025-01-15 06:56 | ECG_ITS ---
[facility] [place] [facility] Date: 2025-01[facility]15 Pat Name: Ricardo eNlson Department: Room: Gender: Male Vehicle Service Agent: : 1935 Requested By: Montse Shipley Order Number: [id number] Jackie MD: Omari Marquis M.D. Measurements Intervals [place] Rate: 61 P: 78 CA: 160 QRS: 71 QRSD: 169 T: 109 QT: 500 QTc: 504 Interpretive Statements SINUS RHYTHM INTRAVENTRICULAR CONDUCTION DELAY [130+ ms QRS DURATION] Compared to ECG 01/15/2025 04:31:44 No significant changes Electronically Signed On 01-15-2025 22:59:24 CDT by Omari Marquis M.D. [email or web address]
[2025-01-15 07:06] LABS: Lactic Sepsis W/Reflex 1.0 mmol/L (0.5-2.2)
[2025-01-15 07:16] LABS: Glucose Urine UA Negative (Normal); Nitrate Urine Negative (Negative); Specific Gravity, Urine 1.008 (1.005-1.030)
[2025-01-15 07:28] LABS: Add Urine Microscopic? YES
[2025-01-15 08:08] LABS: Troponin 5 2HR 66.24 ng/L (0-15)
[2025-01-15 08:14] LABS: Troponin 5 2HR Delta -2.76 ABS# (0-10)
--- NOTE | 2025-01-15 08:29 | PC.PHAR ---
Patient was released 01/14/25 back to [facility] . [facility] states patient did not receive any medication on 01/14/25 .
[2025-01-15 10:51] LABS: Troponin 5 6HR 60.55 ng/L (0-15)
[2025-01-15 10:52] LABS: Troponin 5 6HR Delta -8.45 ng/L (0-12)
--- NOTE | 2025-01-15 10:56 | ECG_ITS ---
[facility] Date: [facility]25-[facility]15 Pat Name: Ricardo Nelson Department: Room: EDIP Gender: Male Consignee: : 1935 Requested By: Montse Shipley Order Number: [id number] Jackie MD: Omari Marquis M.D. Measurements Intervals [place] Rate: 61 P: 73 OR: 156 QRS: 78 QRSD: 166 T: 109 QT: 516 QTc: 521 Interpretive Statements SINUS RHYTHM INDETERMINATE AXIS INTRAVENTRICULAR CONDUCTION DELAY [130+ ms QRS DURATION] Compared to ECG 01/15/2025 07:08:12 Indeterminate axis now present Electronically Signed On 01-15-2025 22:58:56 CDT by Omari Marquis M.D. [email or web address]
--- NOTE | 2025-01-15 13:13 | PM.HP ---
Providers/Chief Complaint Admitting Physician: Lul Fagan MD Primary Care Provider: Charli Piña MD Chief Complaint: sob History of Present Illness Ricardo Nelson is a 89 year old male admitted with acute kidney injury from [facility] for UTI and just discharged yesterday 01/14/2025. He has known low ejection fraction of 30% but had not been requiring diuretics during his last stay as evaluated by cardiology service. Following discharge patient became more short of breath last night. Patient was found to have acute congestive heart failure with chest x-ray showing bilateral pulmonary edema on today's film compared to 01/08/2025. Patient responded well to 40 mg furosemide and BiPAP in the emergency department and started by Dr. Baker. He had only voided 1200 cc by the time I was seeing him mid tone yellow urine in the Wang bag. Patient is companied by his son Chirag Nelson. I updated him regarding heart failure and possible sleep apnea requiring both diuretics and potentially CPAP or BiPAP following discharge as well unfortunately I was then called to an emergency situation in the ICU. Review of Systems Narrative: General no fevers chills chest pain Medications/Allergies Home Medications ?Medication ?Instructions ?Recorded ?Confirmed ?Last Taken ?Type aspirin 81 mg tablet,delayed 81 mg PO DAILY 08/20/19 01/15/25 01/08/25 History release acetaminophen 325 mg tablet 650 mg PO QID PRN Pain 07/21/20 01/15/25 09/27/22 History (Tylenol) nitroglycerin 0.4 mg sublingual 0.4 mg sublingual Q5M PRN chest 01/28/21 01/15/25 Unknown History tablet pain levothyroxine 25 mcg tablet See Rx Instructions .Route 03/30/23 01/15/25 01/08/25 08:00 Rx .COMPLEX #90 tabs bisacodyl 10 mg rectal suppository 10 mg GA DAILY PRN constipation 01/24/24 01/15/25 Unknown History (Dulcolax (bisacodyl)) magnesium hydroxide 400 mg/5 mL 30 ml PO BID PRN constipation 01/24/24 01/15/25 Unknown History oral suspension (Milk of Magnesia) sertraline 50 mg tablet (Zoloft) 50 mg PO BEDTIME 01/24/24 01/15/25 01/07/25 19:00 History ondansetron HCl 4 mg tablet 4 mg PO Q4H PRN Nausea And Vomiting 01/08/25 01/15/25 Unknown History polyethylene glycol 3350 17 17 g PO DAILY PRN constipation 01/08/25 01/15/25 Unknown History gram/dose oral powder (Miralax) sodium phosphates 19 gram-7 118 ml GA DAILY PRN Constipation 01/08/25 01/15/25 Unknown History gram/118 mL enema (Fleet Enema) carvedilol 6.25 mg tablet 6.25 mg PO BID #60 tabs 01/14/25 01/15/25 Unknown Rx hydralazine 25 mg tablet 25 mg PO TID #90 tabs 01/14/25 01/15/25 Unknown Rx lactulose 10 gram/15 mL oral 10 g (15 mL) PO DAILY PRN 01/14/25 01/15/25 Unknown Rx solution Constipation (see protocol) #1,200 mL levofloxacin 750 mg tablet 750 mg PO Q48H #3 tabs 01/14/25 01/15/25 Unknown Rx prednisone 10 mg tablet 10 mg PO DIRECTED #10 tabs 01/14/25 01/15/25 Unknown Rx sodium bicarbonate 650 mg tablet 650 mg PO BID #30 tabs 01/14/25 01/15/25 Unknown Rx albuterol sulfate 2.5 mg/3 mL 2.5 mg inhalation Q4H PRN 01/15/25 01/15/25 Unknown History (0.083 %) solution for nebulization Shortness Of Breath Or Wheezing calcium carbonate (Tums) 400 mg PO BID hypocalcemia 01/15/25 01/15/25 Unknown History guaifenesin 100 mg/5 mL oral liquid 200 mg PO Q4H PRN Cough 01/15/25 01/15/25 Unknown History loperamide 2 mg tablet (Imodium 2 mg PO QID PRN Diarrhea 01/15/25 01/15/25 Unknown History A-D) Allergies Allergy/AdvReac Type Severity Reaction Status Date / Time ibuprofen Allergy Unknown Verified 01/15/25 08:28 naproxen (From Aleve) Allergy Unknown Verified 01/15/25 08:28 sulfamethoxazole (From Allergy Unknown Verified 01/15/25 08:28 Bactrim) trimethoprim (From Bactrim) Allergy Unknown Verified 01/15/25 08:28 PFSH Acute PFSH: Medical History (Updated 01/15/25 @ 08:00 by Kareem Baker DO) CKD (chronic kidney disease) Irregularly irregular pulse rhythm Severe aortic valve stenosis Hyperkalemia HALEY (acute kidney injury) Acute exacerbation of CHF (congestive heart failure) Hx of goiter 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 Falls Weakness Urinary tract infection Hypothyroid Nocturia Atherosclerosis of coronary artery Incomplete bladder emptying Hx of carpal tunnel syndrome History of bradycardia Mitral valve prolapse Recurrent UTI History of paroxysmal supraventricular tachycardia Gouty arthritis Goiter Bladder cancer Surgical History History of bladder surgery History of PTCA Hx of CABG H/O heart artery stent 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 S/P TURP (status post transurethral resection of prostate) Family History Father , at age 69 Suicide Mother , at age 89 CAD (coronary artery disease) Diabetes Sister Diabetes Lung disease Brother Diabetes Stroke Denies family history of Clotting disorder Dementia Chronic kidney disease (CKD) Anesthesia complication Bleeding disorder Cancer Social History Smoking and tobacco/nicotine status: tobacco/nicotine user, details unknown Alcohol intake: never Marital status: Current occupational status: retired Vitals/I&O/Wt Last Vital Signs Temp 96.8 F L 01/15/25 04:39 Pulse 57 L 01/15/25 12:35 Resp 26 H 01/15/25 06:28 BP 163/65 01/15/25 12:35 Pulse Ox 95 01/15/25 12:35 O2 Del Method BiPAP 01/15/25 12:35 O2 Flow Rate 2 01/15/25 06:28 FiO2 21 01/15/25 11:00 Weight last 48 hrs Weight 85.729 kg Physical Exam Narrative: General well-developed well-nourished male who for weight currently on BiPAP, tachypneic but tolerating BiPAP. He is able to nod and shake his head appropriately CV regular rate and rhythm Abdomen positive bowel tones soft nontender Calves no tenderness cords pretibial edema Data 01/15/25 04:07 01/15/25 04:07 Micro: Microbiology 01/15/25 06:27 Blood Culture - Preliminary Blood SPECIMEN COLLECTED 01/15/25 06:27 Blood Culture - Preliminary Blood SPECIMEN COLLECTED Echo: Radiologist's impression: Moderately increased left ventricular cavity size. Severely decreased left ventricular systolic function. Left ventricular ejection fraction is estimated at 30 %. Global left ventricular hypokinesis with septal bounce which could be secondary to interventricular conduction delay. Grade I/IV diastolic dysfunction (abnormal relaxation filling pattern), normal to mildly elevated filling pressures. Bioprosthetic aortic valve is sitting in normal position without significant stenosis, there appeared to be mild possible paravalvular leak, WILFREDO is a better modality to assess it for further detail if indicated Moderate pulmonary valve regurgitation. There is no pericardial effusion. Right atrial pressure is around 15 mm of mercury. CXR: My impression: Postthoracotomy wires in place pulmonary vascular congestion and suspected small right lateral pleural effusions Radiologist's impression: FINDINGS: Tubes, catheters and devices: Median sternotomy suture wires. Lungs: Vascular engorgement with interstitial edema. Congestive heart failure is probably present. Poor inspiratory effort. Hazy diffuse mild right-sided infiltrate likely early pulmonary edema. Pleural spaces: Unremarkable. No pleural effusion. No pneumothorax. Heart/Mediastinum: See Vasculature finding. Vasculature: Mild cardiomegaly and uncoiling of the thoracic aorta. Bones/joints: Unremarkable. XR/XR chest 1V portable [id number] IMPRESSION: Likely CHF. Superimposed pneumonia on the right side not excluded. EKG 1: My Interpretation: Sinus rhythm incomplete left bundle branch block nonspecific ST-T wave changes A&P Assessment and plan 1. Systolic congestive heart failure: Continue diuretics 40 mg furosemide twice a day IV plus potassium replacement 20 mEq daily potassium this a.m. 4.9. Continue with BiPAP. Patient is not a CO2 retainer. He may need treatment for sleep apnea. Known EF 30% will need to give additional heart failure medications. Patient has not wanted intervention 2. HALEY (acute kidney injury): Creatinine 2.1 and stable number compared to discharge. Continue with diuretics 3. CKD (chronic kidney disease): As above baseline creatinine typically 1.1 4. Complicated UTI (urinary tract infection): Resume Levaquin 750 mg every 48 hours PDMP PDMP Reviewed: Not Reviewed [facility] Necessity Statement*: Patient admitted to hospital expected to require 2-3 midnights for diuresis and adjustment of heart failure medications Coding Level of Care Code 34961 Diagnoses Systolic congestive heart failure I50.20 HALEY (acute kidney injury) N17.9 CKD (chronic kidney disease) N18.9 Complicated UTI (urinary tract infection) N39.0 Time Spent (min) 55
--- NOTE | 2025-01-15 13:49 | PC.NURSE ---
Patient transferred from ED to CSU via a bed at 1340.
[2025-01-15] MEDS: heparin 5,000 unit/mL INJ 1 mL 5000 UNIT SUBCUT (13:56)
[2025-01-15] MEDS: calcium gluconate 0.9% NaCL 1 GM/50 ML PREMIX IV ×2 (13:56→14:36)
[2025-01-15] MEDS: oxyCODONE 5 mg IR Tab/Cap PO (19:33)
--- NOTE | 2025-01-15 20:09 | USR_ITS ---
PROCEDURE INFORMATION: Exam: US Duplex Bilateral Lower Extremity Arteries Exam date and time: 01/15/2025 9:11 PM Age: 89 years old Clinical indication: Other: Purple toes TECHNIQUE: Imaging protocol: Real-time ultrasound scan of the arteries of the bilateral lower extremities with 2-D hou scale, color Doppler flow and spectral waveform analysis. Images documented and saved. COMPARISON: US renal BI* [id number] 01/10/2025 5:16 PM FINDINGS: Right common femoral artery: Right common femoral artery peak systolic velocity of 67 cm/sec. Right profunda femoris artery: Right profunda femoral artery peak systolic velocity of 85 cm/sec. Right superficial femoral artery: No evidence of occlusion. Mildly elevated peak systolic velocities as below without substantial spectral broadening. Findings can be. Right superficial femoral artery proximal peak systolic velocity of 94 cm/sec, mid, 130 cm/sec, and distal 133 cm/sec. Right popliteal artery: No occlusion or significant stenosis. Mild spectral broadening. Right popliteal artery peak systolic velocity of 37 cm/sec. Right calf/foot arteries: No occlusion or significant stenosis in the visualized arteries. Mild spectral broadening. Dorsalis pedis artery is patent. Right posterior tibial artery peak systolic velocity of 15 cm/sec. Right dorsalis pedis peak systolic velocity of 23 cm/sec. Left common femoral artery: Left common femoral artery peak systolic velocity of 77 cm/sec. Left profunda femoris artery: Left profunda femoral artery peak systolic velocity of 45 cm/sec. Left superficial femoral artery: Left superficial femoral artery peak systolic velocity proximally is 70 cm/sec, mid 96 cm/sec, and distal 79 cm/sec. Left popliteal artery: Left popliteal artery peak systolic velocity 25 cm/sec. Left calf/foot arteries: Left posterior tibial artery peak systolic velocity 25 cm/sec. Left dorsalis pedis peak systolic velocity of 59 cm/sec. Other findings: ABIs can not be calculated due to incompressible ankle pressures (atherosclerotic arteries greater than 220 mg Hg). Peak Systolic Velocities: US/[place] [id number] IMPRESSION: 1. Mildly elevated peak systolic velocities within the right superficial femoral artery with minimal spectral broadening of the arteries below the level of the knee. Findings can be suggestive of mild stenotic changes. Arterial vasculature is otherwise patent through the level of the dorsalis pedis artery. CT runoff could be considered for further characterization. 2. No occlusion, substantial stenosis of the left femoral arterial vasculature. 3. ABIs can not be calculated due to incompressible ankle pressures (atherosclerotic arteries greater than 220 mg Hg).
--- NOTE | 2025-01-15 20:10 | USCV_ITS ---
Ricardo Nelson Age: 89 Gender: M : 1935 Exam Date: 01/15/2025 20:43 Ordering Phys: Rach Gomez MD Technologist: HÉCTOR Exam Location: [facility] [place] Indication: purple toes Patient does NOT ambulate. [facility] is a [facility]. HISTORY: purple toes Patient does NOT ambulate. He is a [facility] resident. PROCEDURES: Venous duplex imaging was performed in bilateral lower extremities. The following venous structures were evaluated: common femoral vein, profunda vein, proximal portion of the greater saphenous vein, superficial femoral vein, and the popliteal vein. In addition, the posterior tibial veins were evaluated. Serial compression, augmentation maneuvers, and spectral Doppler flow evaluation were performed, which were normal. Bilaterally, the common femoral, superficial femoral, profunda femoral, popliteal, posterior tibial, and greater saphenous veins, were identified and interrogated in the standard fashion. These veins were found to be easily compressible with spontaneous blood flow. No evidence of thrombus noted. CONCLUSIONS No evidence of right lower extremity DVT. No evidence of left lower extremity DVT. Lul Bhagat MD (Electronically Signed) Final Date: 16 January 2025 10:06 S
--- NOTE | 2025-01-15 22:24 | PC.NURSE ---
during initial assessment for this shift, pt bilat feet cold with purple toes. pedal pulses present bilat, according to pt this episode occurs sometimes, pt son at bedside has no recollection of such episode. feet covered with warm blanket, Dr. Gomez notified and order for venous and arterial Doppler
[2025-01-16] VITALS (9 sets, daily range): BP systolic 122–151; BP diastolic 50–76; PULSE 51–68; RESP 17–27; TEMP 35.9–36.6; O2SAT 94–100
[2025-01-16] MEDS: FUROsemide 10 mg/mL SDV 4mL 40 MG IVP (01:04)
[2025-01-16] MEDS: heparin 5,000 unit/mL INJ 1 mL 5000 UNIT SUBCUT ×2 (01:04→13:14)
--- NOTE | 2025-01-16 01:34 | PC.NURSE ---
pt refuse to turn at this time, stated I am okay
[2025-01-16 03:43] LABS: Hematocrit 29.8 % (37-53); Hemoglobin 9.70 g/dL (11.27-16.99); Mean Corpuscular HGB Conc 32.6 g/dL (30-55); Mean Corpuscular Hemoglobin 30.3 pg (27-33); Mean Corpuscular Volume 93.1 fl (82-101); Nucleated Red Blood Cells % 0 %; Platelet Count 128 10^3/cmm (157-399); Red Blood Count 3.20 10^6/uL (3.85-5.65); White Blood Count 12.26 10^3/uL (3.29-11.43)
[2025-01-16 04:05] LABS: Anion Gap 19.6 (5-19); Calcium 8.0 mg/dL (8.5-10.5); Carbon Dioxide 21 mmol/L (22-29); Chloride 104 mmol/L (98-107); Creatinine Clr Calc Pharmacy 25.4694; Glucose 182 mg/dL (65-115); Magnesium 2.1 mg/dL (1.7-2.3); Osmolality Calculated 322 mOsm/kg (285-295); Potassium 4.6 mmol/L (3.5-5.1); Sodium 140 mmol/L (136-145)
[2025-01-16 04:22] LABS: Blood Urea Nitrogen 89 mg/dL (8-23)
--- NOTE | 2025-01-16 06:01 | PC.NURSE ---
pt HR been franki throughout the night, ranging from 48-57. scheduled to receive coreg this AM, HR 54, Dr. Gomez notified and order received to hold if HR is less than 60. coreg held
--- NOTE | 2025-01-16 08:30 | XR_ITS ---
WS: [id number] Portable AP upright chest, 01/16/2025 Clinical Data: CHF after bipap diuresis Comparison: Portable chest, 01/15/2025 Findings: The pulmonary vascular congestion has diminished. No nodules or masses are seen. The heart is enlarged. There may be small right and left pleural effusions. No pneumonia or pneumothorax is seen. Midline sternotomy sutures are present. There are monitor leads on the chest wall. XR/XR chest 1V portable [id number] Impression: 1. Decrease in pulmonary vascular congestion. 2. Cardiomegaly and small pleural effusions.
--- NOTE | 2025-01-16 09:56 | PC.OT ---
OT EVALUATION ATTEMPTED IN A.M. DR, FAMILY AND PATIENT IN DISCUSSION. WILL ATTEMPT AGAIN AT A LATER TIME
--- NOTE | 2025-01-16 12:03 | P.PN_ITS ---
Subjective 2 Subjective: 89-year-old male accompanied b y his older son Chirag and his younger son Yuval. Patient denies chest pain he states he is breathing much better. Patient has diuresed significant fluid. He returned in heart failure after acute kidney injury and adjustment of his diuretics as well as sodium HCO3 for metabolic acidosis. Vitals/I&O/Wt Last Vital Signs Temp 97.8 F 01/16/25 07:00 Pulse 62 01/16/25 07:00 Resp 23 H 01/16/25 07:00 BP 147/73 01/16/25 07:00 Pulse Ox 97 01/16/25 07:00 O2 Del Method BiPAP 01/16/25 03:56 O2 Flow Rate 2 01/15/25 15:20 FiO2 21 01/16/25 00:00 01/15/25 01/16/25 01/16/25 22:59 06:59 14:59 Intake Total 370 / 470 460 / 930 360 / 360 Output Total 1725 / 1725 1100 / 2825 Balance -1355 / -1255 -640 / -1895 360 / 360 Weight last 48 hrs Weight 103.929 kg Weight 103.929 kg Weight 105 kg Weight 85.729 kg Physical Exam 2 Narrative: General well-developed well-nourished male in no acute cardiopulmonary stress on nasal cannula O2 Mallampati 3 CV regular rate and rhythm Respiratory lungs good air movement with bibasilar crackles respiratory rate 22r Abdomen positive bowel tones soft nontender Calves no tenderness cords pretibial edema Data 01/16/25 03:07 01/16/25 03:07 Micro: Microbiology 01/15/25 06:54 Urine Culture - Preliminary Urine,Clean Catch 01/15/25 17:25 Gram Stain - Final Sputum - Expectorated Sputum 01/15/25 06:27 Blood Culture - Preliminary Blood NEGATIVE TO DATE 01/15/25 06:27 Blood Culture - Preliminary Blood NEGATIVE TO DATE A&P Assessment and plan 1. Systolic congestive heart failure: Continue diuretics 40 mg furosemide twice a day p.o. plus potassium replacement 10 mEq daily potassium this a.m. 4.6. Continue with BiPAP. Patient is not a CO2 retainer. Recommend outpatient study for sleep apnea. Known EF 30% will need to give additional heart failure medications. Patient has not wanted intervention X-ray read as improving heart failure no pneumonia 2. HALEY (acute kidney injury): Creatinine 2.4. Creatinine up to 89. Will decrease furosemide to oral 3. CKD (chronic kidney disease): As above baseline creatinine typically 1.1 4. Complicated UTI (urinary tract infection): Resume Levaquin 750 mg every 48 hours PDMP PDMP Reviewed: Not Reviewed Attestations 2 Medical Necessity Statement*: Patient remains in the hospital for additional diuresis and to clarify at discharge oral diuretic dose anticipate discharge tomorrow or the next day Coding Level of Care Code 61965 Diagnoses Systolic congestive heart failure I50.20 HALEY (acute kidney injury) N17.9 CKD (chronic kidney disease) N18.9 Complicated UTI (urinary tract infection) N39.0 Time Spent (min) 35
--- NOTE | 2025-01-16 14:57 | PC.OT ---
OT EVALUATION ATTEMPTED IN P.M. PATIENT SLEEPING SOUNDLY; SNORING. WILL ATTEMPT AGAIN TOMORROW.
[2025-01-17] VITALS (10 sets, daily range): BP systolic 115–158; BP diastolic 54–80; PULSE 54–58; RESP 21–25; TEMP 35.7–36.7; O2SAT 93–100; BMI 34.7
[2025-01-17] MEDS: heparin 5,000 unit/mL INJ 1 mL 5000 UNIT SUBCUT ×2 (01:52→12:31)
[2025-01-17 05:35] LABS: Anion Gap 18.7 (5-19); Calcium 7.3 mg/dL (8.5-10.5); Carbon Dioxide 22 mmol/L (22-29); Chloride 105 mmol/L (98-107); Creatinine Clr Calc Pharmacy 26.4104; Glucose 147 mg/dL (65-115); Magnesium 2.0 mg/dL (1.7-2.3); Osmolality Calculated 322 mOsm/kg (285-295); Potassium 4.7 mmol/L (3.5-5.1); Sodium 141 mmol/L (136-145)
[2025-01-17 05:48] LABS: Blood Urea Nitrogen 89 mg/dL (8-23)
--- NOTE | 2025-01-17 08:10 | XR_ITS ---
WS: [id number] Portable AP supine chest, 01/17/2025 Clinical Data: follow CHF diuresis Comparison: Portable chest, 01/16/2025 Findings: The pulmonary vascular congestion has increased slightly. There is a left pleural effusion. The heart remains enlarged. Midline sternotomy sutures are present. The aortic arch shows calcification and tortuosity. Monitor leads are on the chest wall. XR/XR chest 1V portable [id number] Impression: 1. Slight increase in pulmonary vascular congestion. 2. Cardiomegaly, atherosclerosis and left pleural effusion.
--- NOTE | 2025-01-17 08:11 | PC.SOCIAL ---
IMM Update pg 2 of IMM updated and reviewed w/ patient. Copy provided and copy dated, initialed and placed in chart.
[2025-01-17] MEDS: oxyCODONE 5 mg IR Tab/Cap PO ×3 (08:59→21:03)
--- NOTE | 2025-01-17 14:52 | P.PN_ITS ---
Subjective 2 Subjective: 89-year-old male denies chest pain he states he is breathing much better. We discussed that his kidneys are weak as is his heart and that he is at risk of needing angiogram plus supportive dialysis. I asked him if he would want to seek these measures and he says he would not. He states he would rather have conservative measures even if he were to from that. He states he is not sure that he wants to absolutely just give up though. He is willing to have treatment including trying BiPAP long-term Nurse reports p.o. intake has been poor glucose Vitals/I&O/Wt Last Vital Signs Temp 98.0 F 01/17/25 12:00 Pulse 57 L 01/17/25 12:00 Resp 24 H 01/17/25 12:00 BP 142/55 01/17/25 12:00 Pulse Ox 94 01/17/25 12:00 O2 Del Method Room Air 01/17/25 12:00 O2 Flow Rate 2 01/15/25 15:20 FiO2 21 01/16/25 00:00 01/16/25 01/17/25 01/17/25 22:59 06:59 14:59 Intake Total 480 / 480 Output Total 300 / 825 450 / 1275 900 / 900 Balance -300 / -225 -450 / -675 -420 / -420 Weight last 48 hrs Weight 103.7 kg Weight 103.929 kg Weight 103.929 kg Weight 105 kg Physical Exam 2 Narrative: General well-developed well-nourished male in no acute cardiopulmonary stress on nasal cannula O2 Mallampati 3 CV regular rate and rhythm Respiratory lungs good air movement with bibasilar crackles respiratory rate 22r Abdomen positive bowel tones soft nontender Calves no tenderness cords pretibial edema Data 01/16/25 03:07 01/17/25 04:28 Micro: Microbiology 01/15/25 17:25 Gram Stain - Final Sputum - Expectorated Sputum Sputum Culture - Preliminary 01/15/25 06:54 Urine Culture - Final Urine,Clean Catch A&P Assessment and plan 1. Systolic congestive heart failure: Continue diuretics 40 mg furosemide twice a day p.o. plus potassium replacement 10 mEq daily potassium this a.m. 4.6. Continue with BiPAP. Patient is not a CO2 retainer. Recommend outpatient study for sleep apnea. Known EF 30% will need to give additional heart failure medications. Patient has not wanted intervention X-ray shows increasing pulmonary vascular congestion. He will need to have BiPAP and I think he may need this to be in place before discharge. Pauline has contacted [facility] to get this ordered and they anticipate its availability on Monday 2. HALEY (acute kidney injury): Creatinine 2.4. Creatinine up to 89. Continue furosemide oral 40 mg twice a day 3. CKD (chronic kidney disease): As above baseline creatinine typically 1.1 4. Complicated UTI (urinary tract infection): Resume Levaquin 750 mg every 48 hours PDMP PDMP Reviewed: Not Reviewed Attestations 2 Medical Necessity Statement*: Patient leroy hospitalized for diuresis and stabilization of respiratory status on BiPAP with anticipated discharge once BiPAP is available at [facility] Coding Level of Care Code 78343 Diagnoses Systolic congestive heart failure I50.20 HALEY (acute kidney injury) N17.9 CKD (chronic kidney disease) N18.9 Complicated UTI (urinary tract infection) N39.0 Time Spent (min) 35
[2025-01-18] VITALS (8 sets, daily range): BP systolic 110–127; BP diastolic 65–94; PULSE 53–90; RESP 16–26; TEMP 35.8–36.6; O2SAT 90–100; BMI 34.7
[2025-01-18] MEDS: heparin 5,000 unit/mL INJ 1 mL 5000 UNIT SUBCUT ×2 (01:02→14:00)
[2025-01-18 04:15] LABS: Anion Gap 19.1 (5-19); Calcium 7.2 mg/dL (8.5-10.5); Carbon Dioxide 22 mmol/L (22-29); Chloride 102 mmol/L (98-107); Creatinine Clr Calc Pharmacy 24.2976; Glucose 132 mg/dL (65-115); Magnesium 2.0 mg/dL (1.7-2.3); Osmolality Calculated 317 mOsm/kg (285-295); Potassium 5.1 mmol/L (3.5-5.1); Sodium 138 mmol/L (136-145)
[2025-01-18 04:29] LABS: Blood Urea Nitrogen 93 mg/dL (8-23)
[2025-01-18] MEDS: oxyCODONE 5 mg IR Tab/Cap PO ×2 (07:24→14:01)
[2025-01-18 11:45] LABS: Vit D 1,25 (Oh)2, Total 34 pg/mL (18-72); Vit D2 1,25 (Oh)2 8 pg/mL; Vit D3 1,25 (Oh)2 26 pg/mL
--- NOTE | 2025-01-18 14:23 | P.DS_ITS ---
Discharge Providers Date of Admission: 01/15/25 08:30 Date of Discharge: January 18, 2025 Attending Provider at Admission: Lul Fagan MD Attending Provider at Discharge: Lul Fagan MD Primary Care Provider: Charli Piña MD Diagnoses at Discharge Discharge Diagnosis 1. Systolic congestive heart failure: Details from hospital stay: Continue with BiPAP support at the nursing facility. Weighed patient today and daily and if water weight gain greater than 3 pounds give furosemide 40 mg p.o. on those days 2. HALEY (acute kidney injury): Details from hospital stay: Continue bicarb mini panel in 1 week 3. CKD (chronic kidney disease): Details from hospital stay: As above 4. Complicated UTI (urinary tract infection): Details from hospital stay: Finish out Levaquin course 5. Sleep apnea-like behavior: Details from hospital stay: Outpatient sleep study Reason for Visit Reason for Visit: sob Brief History: Ricardo Nelson is a 89 year old male admitted with acute kidney injury from [facility] for UTI and just discharged yesterday 01/14/2025. He has known low ejection fraction of 30% but had not been requiring diuretics during his last stay as evaluated by cardiology service. Following discharge patient became more short of breath last night. Patient was found to have acute congestive heart failure with chest x-ray showing bilateral pulmonary edema on today's film compared to 01/08/2025. Patient responded well to 40 mg furosemide and BiPAP in the emergency department and started by Dr. Baker. He had only voided 1200 cc by the time I was seeing him mid tone yellow urine in the Wang bag. Patient is companied by his son Chirag Nelson. I updated him regarding heart failure and possible sleep apnea requiring both diuretics and potentially CPAP or BiPAP following discharge. Patient's diuretics were held due to acute kidney injury at the time of last discharge. Patient's fluid status tenuous due to renal failure and EF 30% Hospital Course Hospital Course Patient was admitted to BiPAP diuresis and breathing did improve however he remained weak and unable to walk. Patient has known TAVR valve legs showed no DVT Patient was continued on levofloxacin 750 mg every 48 hours for his UTI with Proteus. BUN presented at 73 and increased 93 with diuresis creatinine started 2.1 increased to 2.5. Patient is at his dry weight now and I have written for him to have as needed furosemide if greater than 3 pounds water weight gain Physical Exam Narrative: General well-developed well-nourished male in no acute cardiopulmonary stress on nasal cannula O2 Mallampati 3 CV regular rate and rhythm Respiratory lungs good air movement minimal basilar crackles with respiratory rate 19 Abdomen positive bowel tones soft nontender Calves no tenderness cords pretibial edema Discharge Data Studies Completed and Pending Completed Studies During Hospitalization Category Date Time Status XR chest 1V portable [id number] Routine Exams 01/16/25 08:30 Completed XR chest 1V portable [id number] Routine Exams 01/17/25 08:10 Completed XR chest 1V portable [id number] Stat Exams 01/15/25 04:56 [place] [id number] Stat Ultrasound 01/15/25 20:09 Completed US venous duplex lower extremity bilat [CV venous Ultrasound 01/15/25 20:10 [place] [id number]] Stat Pending at discharge Category Date Time Status Blood Culture Stat Lab 01/15/25 06:27 Results Sputum Culture and Gram Stain Stat Lab 01/15/25 17:25 Results Radiology Impressions Duplex Scan Lower Extremity Artery 01/15/25 20:09 IMPRESSION: 1. Mildly elevated peak systolic velocities within the right superficial femoral artery with minimal spectral broadening of the arteries below the level of the knee. Findings can be suggestive of mild stenotic changes. Arterial vasculature is otherwise patent through the level of the dorsalis pedis artery. CT runoff could be considered for further characterization. 2. No occlusion, substantial stenosis of the left femoral arterial vasculature. 3. ABIs can not be calculated due to incompressible ankle pressures (atherosclerotic arteries greater than 220 mg Hg). Chest X-Ray 01/17/25 08:10 Impression: 1. Slight increase in pulmonary vascular congestion. 2. Cardiomegaly, atherosclerosis and left pleural effusion. Laboratory Results WBC 12.26 10^3/uL (3.29-11.43) H 01/16/25 03:07 RBC 3.20 10^6/uL (3.85-5.65) L 01/16/25 03:07 Hgb 9.70 g/dL (11.27-16.99) L 01/16/25 03:07 Hct 29.8 % (37-53) L 01/16/25 03:07 MCV 93.1 fl (82-101) 01/16/25 03:07 MCH 30.3 pg (27-33) 01/16/25 03:07 MCHC 32.6 g/dL (30-55) 01/16/25 03:07 RDW 14.7 % (12.1-15.1) 01/16/25 03:07 Plt Count 128 10^3/cmm (157-399) L 01/16/25 03:07 MPV 12.5 fL (7.4-10.4) H 01/16/25 03:07 Neut % (Auto) 87.2 % 01/16/25 03:07 Lymph % (Auto) 5.8 % 01/16/25 03:07 Crane % (Auto) 5.0 % 01/16/25 03:07 Eos % (Auto) 0.0 % 01/16/25 03:07 Baso % (Auto) 0.1 % 01/16/25 03:07 Neut # (Auto) 10.70 10^3/uL (1.8-7.7) H 01/16/25 03:07 Lymph # (Auto) 0.7 10^3/uL (0.8-4.8) L 01/16/25 03:07 Crane # (Auto) 0.6 10^3/uL (0.2-0.9) 01/16/25 03:07 Eos # (Auto) 0.0 10^3/uL (0.0-0.8) 01/16/25 03:07 Baso # (Auto) 0.0 10^3/uL (0.0-0.1) 01/16/25 03:07 Nucleated RBC % (auto) 0 % 01/16/25 03:07 Nucleated RBCs # 0.0 /100WBC 01/16/25 03:07 Specimen Type Arterial 01/15/25 06:13 Sample Site Radial, right 01/15/25 06:13 ABG pH 7.43 (7.35-7.45) 01/15/25 06:13 ABG pCO2 30.8 mmHg (35-45) L 01/15/25 06:13 ABG pO2 84.7 mmHg (80.0-100.0) 01/15/25 06:13 ABG PO2/FiO2 Ratio 302 01/15/25 06:13 ABG HCO3 20.3 mmol/L (22-26) L 01/15/25 06:13 ABG O2 Saturation 97.4 01/15/25 06:13 ABG Base Excess -3.4 mmol/L (-2.0-2.0) L 01/15/25 06:13 Mateusz Test Pos 01/15/25 06:13 A-a O2 Gradient 9.9 mmHg (5-10) 01/15/25 06:13 Hematocrit 31.0 % (42-52) L 01/15/25 06:13 Hgb O2 Saturation 95.7 % (95-100) 01/15/25 06:13 Carboxyhemoglobin 1.4 %THgb (0.4-20.1) 01/15/25 06:13 Methemoglobin 0.4 % (0.4-1.5) 01/15/25 06:13 Total Hemoglobin 10.1 g/dL (14-18) L 01/15/25 06:13 Sodium 142.0 mmol/L (131-143) 01/15/25 06:13 Potassium 4.5 mmol/L (3.5-5.0) 01/15/25 06:13 Glucose 167.0 mg/dL (70-115) H 01/15/25 06:13 Ionized Calcium 1.1 mmol/L (1.1-1.4) 01/15/25 06:13 O2 Delivery Device Nc 01/15/25 06:13 O2 Liters/Min 2.0 % 01/15/25 06:13 FiO2 28.0 % 01/15/25 06:13 Cellar Packer ID [email or web address] 01/15/25 06:13 Sodium 138 mmol/L (136-145) 01/18/25 02:35 Potassium 5.1 mmol/L (3.5-5.1) 01/18/25 02:35 Chloride 102 mmol/L (98-107) 01/18/25 02:35 Carbon Dioxide 22 mmol/L (22-29) 01/18/25 02:35 Anion Gap 19.1 (5-19) H 01/18/25 02:35 BUN 93 mg/dL (8-23) H* 01/18/25 02:35 Creatinine 2.5 mg/dL (0.7-1.2) H 01/18/25 02:35 GFR Calculation Not Reportable 01/18/25 02:35 Glucose 132 mg/dL (65-115) H 01/18/25 02:35 Calculated Osmolality 317 mOsm/kg (285-295) H 01/18/25 02:35 Lactic Acid 1.0 mmol/L (0.5-2.2) 01/15/25 06:27 Calcium 7.2 mg/dL (8.5-10.5) L 01/18/25 02:35 Ionized Calcium Maureen 0.9 mmol/L (1.1-1.4) L 01/18/25 09:28 Phosphorus 4.5 mg/dL (2.5-4.5) 01/18/25 02:35 Magnesium 2.0 mg/dL (1.7-2.3) 01/18/25 02:35 Total Bilirubin 0.9 mg/dL (0.15-1.2) 01/15/25 04:07 AST 13 U/L (0-40) 01/15/25 04:07 ALT 10 U/L (0-41) 01/15/25 04:07 Alkaline Phosphatase 91 U/L (40-130) 01/15/25 04:07 Troponin T Baseline 69 ng/L (0-15) H 01/15/25 04:07 Troponin T 120 Minute 66.24 ng/L (0-15) H 01/15/25 07:23 Delta Troponin T -2.76 ABS# (0-10) L 01/15/25 07:23 Troponin T Hi Sens 6Hr 60.55 ng/L (0-15) H 01/15/25 10:19 Troponin T Hi Sens 6Hr Delta -8.45 ng/L (0-12) L 01/15/25 10:19 NT-Pro-B Natriuret Pep > 12635 pg/mL (0-450) H 01/15/25 04:07 Total Protein 6.0 g/dL (6.6-8.7) L 01/15/25 04:07 Albumin 4.1 g/dL (3.5-5.2) 01/15/25 04:07 Globulin 1.9 g/dL (1.3-4.6) 01/15/25 04:07 25-OH Vitamin D Total 34 pg/mL (18-72) 01/15/25 04:07 1,25 Dihydroxy Vit D2 8 pg/mL 01/15/25 04:07 1,25 Dihydroxy Vit D3 26 pg/mL 01/15/25 04:07 Procalcitonin 8.43 ng/mL (0-0.5) H 01/15/25 04:07 Urine Color Yellow (Yellow) 01/15/25 06:54 Urine Appearance Clear (CLEAR) 01/15/25 06:54 Urine pH 5.0 (5-7) 01/15/25 06:54 Ur Specific Bath 1.008 (1.005-1.030) 01/15/25 06:54 Urine Protein Negative (Negative) 01/15/25 06:54 Urine Glucose (UA) Negative (Normal) 01/15/25 06:54 Urine Ketones Negative (Negative) 01/15/25 06:54 Urine Blood Non-haemolysed trace (Negative) 01/15/25 06:54 Urine Nitrate Negative (Negative) 01/15/25 06:54 Urine Bilirubin Negative (Negative) 01/15/25 06:54 Urine Urobilinogen 0.2 mg/dL (Negative) 01/15/25 06:54 Ur Leukocyte Esterase 2+ (Negative) A 01/15/25 06:54 Urine RBC 0-2 /hpf (0-2) 01/15/25 06:54 Urine WBC 21-50 /hpf (0-5) H 01/15/25 06:54 Ur Squamous Epith Cells 0-5 /hpf (0-5) 01/15/25 06:54 Amorphous Sediment Not Reportable 01/15/25 06:54 Urine Bacteria None seen /hpf (NONE) 01/15/25 06:54 Hyaline Casts 1.21 /lpf 01/15/25 06:54 Influenza A (PCR) Negative (Negative) 01/15/25 05:30 Influenza Type B (PCR) Negative (Negative) 01/15/25 05:30 RSV (PCR) Negative (Negative) 01/15/25 05:30 SARS-CoV-2 (PCR) Negative (Negative) 01/15/25 05:30 Vitals Last Vital Signs Temp 97.6 F 01/18/25 07:21 Pulse 73 01/18/25 12:00 Resp 19 H 01/18/25 14:01 BP 127/65 01/18/25 12:00 Pulse Ox 100 01/18/25 14:16 O2 Del Method Nasal Cannula 10/25/25 14:16 O2 Flow Rate 4 01/18/25 14:16 FiO2 21 01/16/25 00:00 Discharge Plan Discharge Patient Disposition: Xfer SNF Condition: Stable Prescriptions: New furosemide 40 mg Tablet 40 mg PO DAILY@0800 PRN (Reason: water weight gain) Qty: 30 0RF ipratropium-albuterol 0.5 mg-3 mg(2.5 mg base)/3 mL Solution For Nebulization 3 ml inhalation Q4H PRN (Reason: Shortness Of Breath) Qty: 90 0RF Continued acetaminophen [Tylenol] 325 mg tablet 650 mg PO QID PRN (Reason: Pain) aspirin 81 mg tablet,delayed release (DR/EC) 81 mg PO DAILY nitroglycerin 0.4 mg tablet, sublingual 0.4 mg sublingual Q5M PRN (Reason: chest pain) magnesium hydroxide [Milk of Magnesia] 400 mg/5 mL suspension 30 ml PO BID PRN (Reason: constipation ) bisacodyl [Dulcolax (bisacodyl)] 10 mg suppository 10 mg LA DAILY PRN (Reason: constipation ) sertraline [Zoloft] 50 mg tablet 50 mg PO BEDTIME levothyroxine 25 mcg tablet See Rx Instructions .ROUTE .COMPLEX Qty: 90 3RF Dose Instruction: TAKE 1 TABLET DAILY Rx Instructions: TAKE 1 TABLET DAILY ondansetron HCl 4 mg tablet 4 mg PO Q4H PRN (Reason: Nausea And Vomiting) Fleet Enema 19-7 gram/118 mL Enema 118 ml LA DAILY PRN (Reason: Constipation) sodium bicarbonate 650 mg Tablet 650 mg PO BID Qty: 30 0RF levofloxacin 750 mg Tablet 750 mg PO Q48H Qty: 3 0RF hydralazine 25 mg tablet 25 mg PO TID Qty: 90 0RF Rx Instructions: hold if sbp below 130 carvedilol 6.25 mg Tablet 6.25 mg PO BID Qty: 60 0RF prednisone 10 mg tablet 10 mg PO DIRECTED Qty: 10 0RF Rx Instructions: 2 daily for 3 days then 1 daily for 4 days and stop albuterol sulfate 2.5 mg /3 mL (0.083 %) solution for nebulization 2.5 mg inhalation Q4H PRN (Reason: Shortness Of Breath Or Wheezing) guaifenesin 100 mg/5 mL Liquid 200 mg PO Q4H PRN (Reason: Cough) calcium carbonate [Tums] 200 mg calcium (500 mg) Tablet,Chewable 400 mg PO BID lactulose 10 gram/15 mL Solution 10 g PO DAILY PRN (Reason: Constipation (see protocol)) Qty: 1200 0RF Changed polyethylene glycol 3350 [Miralax] 17 gram/dose Powder 17 g PO DAILY Qty: 238 0RF Discontinued loperamide [Imodium A-D] 2 mg Tablet 2 mg PO QID PRN (Reason: Diarrhea) Discharge Order = DC NOW: Discharge Order (Routine); Ordered 01/18/25 Ordered By: Lul Fagan Other Ambulatory Orders: DME: BIPAP (Order) Location: None Selected Ordered By: Lul Fagan Basic Metabolic Panel (Routine) Timeframe: 1 Week Facility: [facility] - Location: Lab - Main Lab Ordered By: Lul Fagan Sleep Oximetry Study (Routine) Timeframe: 1 Week Facility: [facility] - Location: [facility] Ordered By: Lul Fagan Referrals: [facility] [Outside] Charli Piña MD [Primary Care Provider, Family Practice] Discharge Diet: Cardiac and Low Salt Discharge Activity: Increase activity as tolerated, As per PT/OT instructions and Cpap/Bipap as instructed Patient Instructions: Furosemide (By mouth), Ipratropium (By breathing), Heart Failure (DC), Heart Failure (GEN), Acute Kidney Injury (DC), Chronic Kidney Disease (DC), Chronic Kidney Disease (GEN), Opioid Safety, Patient Portal & David Instructions Activity Restrictions/Additional Instructions: Wear BiPAP every night and anytime sleeping through the day Weigh patient on arrival back at [facility] today. Weigh daily and if he is gaining more than 3 pounds water weight from today's dry weight give furosemide 40 mg daily as needed for that Change Wang every 2 weeks Initiate physical therapy 1600 cc fluid restriction daily but also try to get the patient to drink between 1000 and 1600cc daily (not just 300 or 700) Discharge Attestations Time Spent in Discharge Care*: greater than 30 min Time Spent in Smoking Cessation: Patient is not a smoker Quality Metrics Clinical Quality Measures [ No reported AMI, CVA or VTE this stay] Coding Level of Care Code 71115 Diagnoses Systolic congestive heart failure I50.20 HALEY (acute kidney injury) N17.9 CKD (chronic kidney disease) N18.9 Complicated UTI (urinary tract infection) N39.0 Sleep apnea-like behavior G47.39 Time Spent (min) 40
== END 2025-01-18 16:40 | disposition skilled nursing facility (03) | DRG 682 ==
LOC: ER 08:00 → ER IP 08:31 → CSU 13:16
PROVIDERS: Emergency Medicine; Admitting Provider Internal Medicine; Emergency Provider Family Medicine; PCP Family Medicine; Visit Provider Internal Medicine
DX: N17.9 Acute kidney failure, unspecified (principal); I50.21 Acute systolic (congestive) heart failure; E87.20 Acidosis, unspecified; N39.0 Urinary tract infection, site not specified; T36.8X5A Adverse effect of other systemic antibiotics, initial encounter; Y92.9 Unspecified place or not applicable; N18.9 Chronic kidney disease, unspecified; B96.4 Proteus (mirabilis) (morganii) as the cause of diseases classified elsewhere; G47.30 Sleep apnea, unspecified; E03.9 Hypothyroidism, unspecified; Z95.2 Presence of prosthetic heart valve; Z95.1 Presence of aortocoronary bypass graft; Z95.5 Presence of coronary angioplasty implant and graft; Z85.51 Personal history of malignant neoplasm of bladder; Z87.440 Personal history of urinary (tract) infections; Z79.82 Long term (current) use of aspirin
CPT/HCPCS: 36415; 36600; 71045; 80048; 80051; 80053; 81001; 82330; 82652; 82805; 83605; 83735; 83880; 84100; 84145; 84484; 85025; 87040; 87070; 87077; 87086; 87186; 87205; 87637; 93005; 93925; 93970; 94640; 94660; 94664; 96365; 96367; 96372; 96375; 97161; 97165; 99291; J0612; J1644; J1938; J2543; J7512; J9999